=== PATIENT | male | born 1960 | race Caucasian/White ===

== ENCOUNTER → 2020-11-05 15:01 | Outpatient (BNVA) | payer MEDICAID, SELFPAY | PROVIDERS: PCP Student in an Organized Health Care Education/Training Program; Visit Provider Internal Medicine Cardiovascular Disease | DX: Z13.89 Encounter for screening for other disorder (principal) | CPT/HCPCS: 99212 ==

== ENCOUNTER → 2020-11-07 12:44 | Outpatient (REF) | payer MEDICAID, SELFPAY ==
--- NOTE | 2020-11-07 12:48 | CA_ITS ---
Transthoracic Echocardiogram Patient (Last, First, Middle): Andrae Dunbar G Gender: Male Date of : 1960 Age: 60 Procedure Date: 11/07/2020 Procedure Type: Transthoracic Echocardiogram Location: OP Height: 175.26 cm Weight: 73.94 kg BSA: 1.89 m2 Heart Rate: bpm BP: 110 / 70 mmHg Laserist: CHICO Plasencia MD: Bong Arndt MD Program Advisor: Rosendo Sky MD Symptoms: I10 - Essential (primary) hypertension Study Quality: Good ECG Rhythm: Sinus Conclusions: - 1. Normal LV systolic function with grade 1 diastolic dysfunction 2. Normal cardiac valvular Doppler 3. Normal RV systolic pressure 4. No pericardial effusion Findings Left Ventricle Normal left ventricular size, thickness, and systolic function. The visually estimated ejection fraction is between 55-60%. Spectral Doppler is indicative of an impaired relaxation filling pattern. E/E prime ratio is <8, consistent with normal filling pressures. Evidence suggests grade I (mild) diastolic dysfunction. Right Ventricle Normal right ventricular cavity size and systolic function. Atria The left atrium is likely dilated. There is lipomatous hypertrophy of the interatrial septum. There is no evidence of interatrial shunt. The right atrium is normal in size. Aortic Valve There is mild calcification of the aortic valve. There is mild thickening of the aortic valve. There is no aortic valve stenosis. There is no aortic valve regurgitation. Mitral Valve There is mild anterior and moderate posterior mitral leaflet thickening. There is mild mitral annular calcification. There is trace mitral valve regurgitation. There is no mitral valve stenosis. Pulmonic Valve The pulmonic valve was not well visualized. Tricuspid Valve Likely normal tricuspid valve structure and function. There is trace tricuspid valve regurgitation. The right ventricular systolic pressure is normal. The right ventricular systolic pressure is 17 mmHg. Normal right atrial pressure. There is no evidence of pulmonary hypertension. Great Vessels All visible segments of the aorta are normal in size. The pulmonary artery was not well visualized. Venous The inferior vena cava is normal in size and collapses greater than 50% with inspiration. Pericardium/Pleural There is no evidence of pericardial effusion. Prior Study Comparison No significant change compared to prior study dated: 10/18/2019. Measurements 2D Linear Measurements IVSd: 0.98 0.6-0.9/0.6-1.0 cm LVIDd: 4.60 3.9-5.3/4.2-5.9 cm LVIDd Index: 2.43 2.4-3.2/2.2-3.1 cm/m2 LVIDs: 2.63 2.0-3.6 cm LVPWd: 0.93 0.7-1.1 cm Ao Root: 3.50 2.1-3.5 cm LA Diam: 3.40 2.7-3.8/3.0-4.0 cm LAIDs Index: 1.80 1.5-2.3 cm/m2 LV Mass: 185.97 67-162/88-224 g LV Mass Index: 98.39 43-95/49-115 g/m2 LVOT Diam: 2.30 3.0+(-)1.3 cm 2D Systolic Function EF 4C: 55.40 >55% EF 2C: 62.70 >55% EF BiP: 59.10 >55% Mitral Valve MV Pk E: 0.79 MV PK A: 0.67 MV Decel Time: 321.00 E/A: 1.20 E'Lateral: 9.68 E'Medial: 7.40 E/E' Med: 10.70 E/E' Lat: 8.20 PHT: 94.00 MVA PHT: 2.34 Decel [place]: 2.46 Aortic Valve AoV Pk Jose: 1.12 AoV Mn Jose: 0.79 AoV VTI: 0.24 AoV Pk Grad: 5.00 Aov Mn Grad: 3.00 DEB Cont.VTI: 3.88 LVOT LVOT Pk Jose: 1.00 LVOT Mn Jose: 0.67 LVOT VTI: 0.23 LVOT Pk Grad: 4.00 LVOT Mn Grad: 2.00 LVOT Diam: 2.30 LVOT Area: 4.15 Diastolic Function MV Pk E: 0.79 MV Pk A: 0.67 E/A: 1.20 E'Medial: 7.40 E/E' Med: 10.70 E' Laterial: 9.68 E/E' Lat: 8.20 Tricuspid Valve TR Pk Jose: 1.90 TR Pk Grad: 14.00 RA Press: 3.00 RVSP: 17.00 Great Vessels Aorta Ao Root-2D: 3.50 2.0-3.7 cm Ao Asc: 3.10 2.1-3.4 cm Ao Arch: 2.90 Updated in Other Vendor System with Status of Final Rosendo Sky MD electronically signed on 11/08/2020 4:58:53 PM with status of Final
== END ==
LOC: HO.CARD 12:44
PROVIDERS: PCP Student in an Organized Health Care Education/Training Program; Visit Provider Internal Medicine Cardiovascular Disease
DX: I10 Essential (primary) hypertension (principal)
CPT/HCPCS: 93306

== ENCOUNTER → 2020-11-14 11:40 | Outpatient (BNVA) | payer MEDICAID, SELFPAY | PROVIDERS: PCP Student in an Organized Health Care Education/Training Program; Visit Provider Nurse Practitioner Family | DX: R07.89 Other chest pain (principal); I10 Essential (primary) hypertension; E78.5 Hyperlipidemia, unspecified; F17.200 Nicotine dependence, unspecified, uncomplicated; Z71.6 Tobacco abuse counseling; Z79.899 Other long term (current) drug therapy | CPT/HCPCS: 99212 ==

== ENCOUNTER 2020-11-15 08:25 | Outpatient (REF) | payer MEDICAID, SELFPAY ==
--- NOTE | ~2020-11-15 | US_ITS ---
EXAMINATION: US RETROPERITONEAL LIMITED (RENAL ONLY) Ultrasound retroperitoneal renal was dictated with ultrasound renal doppler exam.
--- NOTE | ~2020-11-15 | US_ITS ---
EXAMINATION: ULTRASOUND RENAL DOPPLER. CLINICAL INFORMATION: Essential primary hypertension. COMPARISON: None. TECHNIQUE: Routine grayscale imaging of kidneys with intraperitoneal Doppler done. FINDINGS: Right kidney: The right kidney measures 11.9 x 6.0 x 5.8 cm. There is anechoic cyst lower pole measuring 0.8 x 1.0 x 1 0.8 cm. There is a complex anechoic cyst upper pole with septation measuring 2.7 x 2.0 x 2.1 cm. There is normal cortical thickness. No echogenic stones or hydronephrosis seen. Left kidney: The left kidney measures 11.5 x 5.5 x 5.2 seen. There is a complex cyst with septation in the upper pole measuring 1.1 x 1.1 x 1.0 cm, simple upper pole cyst measuring 1.1 x 1.0 x 1.1 cm and a second complex cyst with septation in the upper pole measuring 1.7 x 1.1 x 1.1 cm. There is normal cortical thickness. No echogenic stones or hydronephrosis seen. On renal Doppler exam: Right kidney: Proximal renal artery velocity measures 118 cm/second, mid segment measures 178 cm/second and the distal segment measures 181 cm/second. Renal aortic ratio measures 1.99. Average resistive index measures 0.73. The renal vein is patent. Left kidney: Proximal left renal artery velocity measures 10 4 cm/second, mid segment measures 2 75 cm/second and distal segment measures 1 38 cm/second. Renal aortic ratio measures 3.07 cm. Average resistive index measures 0.64. The renal vein is patent. US/US renal doppler IMPRESSION: Bilateral complex renal cysts as well as simple renal cyst. No echogenic renal calculi or hydronephrosis seen. On renal Doppler exam, left renal artery stenosis is suspected. Normal renal artery velocities with normal right renal artery values.
== END 2020-11-15 08:26 | disposition home or self-care (01) ==
LOC: HO.US 08:25
PROVIDERS: PCP Student in an Organized Health Care Education/Training Program; Visit Provider Internal Medicine Cardiovascular Disease
DX: I10 Essential (primary) hypertension (principal)
CPT/HCPCS: 76775; 93975

== ENCOUNTER → 2020-11-22 07:34 | Outpatient (REF) | payer MEDICAID, SELFPAY ==
--- NOTE | ~2020-11-22 | NM_ITS ---
Myocardial perfusion study Indication: Chest pain to evaluate for myocardial ischemia Technique: The patient was brought in for a Lexiscan perfusion study on 11/22/2020. Patient performed low-level exercise and was injected 0.4 mg of Lexiscan intravenously. Within a minute of injection, 25 mCi of sestamibi was given intravenously. Images were obtained using the SPECT gamma camera interlaced with the gating device. Images were obtained in supine position. Resting perfusion study was performed on 11/23/2020. Patient was administered 25 mCi of sestamibi intravenously at rest. Images were then obtained in supine position. Images obtained with and without CT attenuation. Total DLP 73 mGy-cm. Images were processed with the software and compared side to side in short axis, horizontal long axis and vertical long axis views. Findings: The stress perfusion study showed non attenuated images show minimal thinning of the inferior wall of the LV myocardium. Remainder of the LV myocardium normally perfused. Attenuation corrected images show mildly reduced uptake in the apex and distal lateral wall of the LV myocardium.. The gated study shows normal LV systolic function with calculated LVEF of 66%. LV cavity is normal size. The gated study shows normal systolic wall thickening and contraction of segments. Resting study shows no clear change in perfusion pattern compared to stress perfusion study. Gating at rest reveals normal systolic wall motion with ejection fraction at 73%. The findings are consistent with no significant area of reversible defect suggestive of ischemia. Most likely normal myocardial perfusion. NM/NM cardiolite stress test Impression: 1. Myocardial perfusion imaging study shows likely normal myocardial perfusion 2. Gated LVEF is 66% 3. Transient ischemic dilatation not present EKG is nondiagnostic for ischemia
--- NOTE | 2020-11-22 08:00 | CA_ITS ---
Acquisition Time: 2020-11-22 08:42:44 Total Exercise Time: 00:06:12 Test Indications: I10 HTN R07.89 CHEST PAIN Medications: Protocol: TOM Max HR: 112 BPM 70% of Pred: 158 BPM Max BP: 162/096 mmHG Max Work Load: 7.3 METS Exercise stress test with exercise 6 min 12 sec of Tom protocol, with moderate shortness of breath and request to stop, no chest discomfort, with PACs at near peak exercise and 2 PVC early in recovery, with normotensive response to exercise, with nondiagnostic EKG due to suboptimal heart rate. Treadmill placed in recovery and slowed to 1 MPH 0% incline for additonal 4.5 min. Testing changed to pharmacological stress test with Lexiscan injection, without anginal symptoms, without arrythmia, with normotensive response, with nondiagnostic EKG for ischemia. In recovery he reported lightheadedness and was treated with Aminophylline 75mg IVP with resolution of symptom. Nuclear images pending. Test reviewed with Dr De Leon. Referred By: Meghan Wellington Overread By: MEGHAN WELLINGTON
[2020-11-22 08:44] LABS: Alanine Aminotransferase 18 U/L (0-40); Albumin Level 4.2 g/dL (3.5-5.0); Alkaline Phosphatase 79 U/L (39-117); Anion Gap 11 (12-20); Aspartate Amino Transferase 16 U/L (5-37); Bilirubin Total 0.5 mg/dL (0.0-1.0); Blood Urea Nitrogen 16 mg/dL (9-16); Calcium 8.8 mg/dL (8.4-10.2); Carbon Dioxide 27 mmol/L (22-29); Chloride 105 mmol/L (96-108); Cholesterol 177 mg/dL; Estimated Glomerular Filt Rate > 60; Glucose Random 88 mg/dL (60-115); HDL Cholesterol 40 mg/dL; LDL Cholesterol Calculated 118 mg/dl; Potassium 3.9 mmol/L (3.3-5.1); Sodium 139 mmol/L (135-145); Total Protein 6.4 g/dL (6.5-8.0); Triglycerides 97 mg/dL
== END ==
LOC: HO.CARD 07:34
PROVIDERS: PCP Student in an Organized Health Care Education/Training Program; Visit Provider Nurse Practitioner Family
DX: R07.89 Other chest pain (principal); I10 Essential (primary) hypertension; E78.5 Hyperlipidemia, unspecified
CPT/HCPCS: 36415; 78452; 80053; 80061; 93016; 93017; 93018; A9500; J0280; J2785

== ENCOUNTER 2020-11-27 09:22 | Outpatient (REF) | payer MEDICAID, SELFPAY ==
--- NOTE | ~2020-11-27 | CT_ITS ---
EXAMINATION: CT ANGIOGRAM ABDOMEN CLINICAL INFORMATION: Essential primary hypertension COMPARISON: Previous renal ultrasound 11/15/2020 TECHNIQUE: Multiple axial images were obtained through the abdomen following the administration of 80 mL Omnipaque 350 intravenous contrast. Images were reviewed on a dedicated 3-D workstation. This CT examination was performed using dose optimization techniques as appropriate, variously including the following: *Automated exposure control *Adjustment of mA and/or kV according to patient size (this includes techniques or standardized protocols for targeted exams where dose is matched to indication/reason for exam; i.e. extremities or head) *Use of iterative reconstruction technique DLP: 233 mGy-cm FINDINGS: There is evidence of atherosclerotic disease with vessel wall calcification. There is mild dilatation of the infrarenal abdominal aorta measuring 2.5 x 2.5 cm. The right common iliac artery and right iliac bifurcation are patent. The left common iliac artery and iliac bifurcation is patent. There are single patent renal arteries. No evidence of renal artery stenosis is seen. There is a normal variant, direct origin of the hepatic artery from the abdominal aorta. The celiac axis, SMA and MARIANO are patent. There is a second area of increased cystic and reticular markings seen in the left lower lobe for example axial image 7 series 8. There is not completely imaged. This is triangular in shape and measures at least 5 3.4 cm in AP and transverse dimension. The lung bases are otherwise clear. The liver, gallbladder, spleen, pancreas and adrenal glands are unremarkable. The kidneys are normal in size. There is an area of renal cortical thinning or scarring in the medial upper pole of the left kidney. There is a 1.7 cm simple cyst in the posterior upper pole of the right kidney. There is a 1 cm cyst in the upper pole of the left kidney. Hounsfield units following contrast measure 28 and this may represent a complex cyst. The other smaller renal cysts seen by ultrasound are not well visualized due to timing of contrast opacification of the kidneys. No renal stone, mass or hydronephrosis is seen. Visualized bowel is unremarkable. No ascites or adenopathy is seen. No hernia. There are mild degenerative changes of the spine. CT/CT angio abdomen IMPRESSION: Atherosclerotic disease. No evidence of renal artery stenosis. Mild dilatation of the infrarenal abdominal aorta measuring maximum 2.5 cm. There is cortical thinning or scarring in the medial upper pole left kidney. Small bilateral renal cysts. Partially visualized mixed cystic and reticular density in the left lower lobe. Follow-up dedicated chest CT scan should be considered.
== END 2020-11-27 09:23 | disposition home or self-care (01) ==
LOC: HO.CT 09:22
PROVIDERS: Visit Provider Nurse Practitioner Family
DX: I10 Essential (primary) hypertension (principal); F17.210 Nicotine dependence, cigarettes, uncomplicated
CPT/HCPCS: 74175; Q9967

== ENCOUNTER → 2020-11-30 11:02 | Outpatient (BNVA) | payer MEDICAID, SELFPAY | PROVIDERS: PCP Student in an Organized Health Care Education/Training Program; Visit Provider Nurse Practitioner Family | DX: R07.89 Other chest pain (principal); I10 Essential (primary) hypertension; E78.5 Hyperlipidemia, unspecified; F17.200 Nicotine dependence, unspecified, uncomplicated; Z71.6 Tobacco abuse counseling; Z79.899 Other long term (current) drug therapy | CPT/HCPCS: 99212 ==

== ENCOUNTER → 2021-01-03 12:50 | Outpatient (BNVA) | payer MEDICAID, SELFPAY | PROVIDERS: PCP Student in an Organized Health Care Education/Training Program; Visit Provider Internal Medicine Cardiovascular Disease | DX: N28.1 Cyst of kidney, acquired (principal); R06.00 Dyspnea, unspecified; I10 Essential (primary) hypertension | CPT/HCPCS: 99212 ==

== ENCOUNTER → 2021-01-28 13:33 | Outpatient (BNVA) | payer MEDICAID, SELFPAY | PROVIDERS: PCP Student in an Organized Health Care Education/Training Program; Visit Provider Internal Medicine | DX: R06.00 Dyspnea, unspecified (principal); Z87.891 Personal history of nicotine dependence | CPT/HCPCS: 99202 ==

== ENCOUNTER 2021-02-14 13:25 | Outpatient (REF) | payer MEDICAID, SELFPAY ==
--- NOTE | 2021-02-14 17:21 | PFT_ITS ---
FLOWS: FEV1 of 102% of predicted at 3.48 L. FVC 105% of predicted at 4.77 L. FEV1 to FVC ratio of 0.73. No bronchodilator response except in small to medium airways. LUNG VOLUMES: Total lung capacity 82% of predicted at 5.58 L. Residual volume 47% of predicted at 1.07 L. Slow vital capacity 99% of predicted at 4.51 L. Expiratory reserve volume 183% of predicted at 2.38 L. Diffusion capacity is moderately decreased. IMPRESSION: No obstructive or restrictive ventilatory defect. No bronchodilator response except in small to medium airways. Decreased diffusion capacity suggests emphysema. MD ELIZA Jamil/MODL / [id number]
== END 2021-02-14 13:26 | disposition home or self-care (01) ==
LOC: HO.RESP 13:25
PROVIDERS: PCP Student in an Organized Health Care Education/Training Program; Visit Provider Internal Medicine
DX: R06.00 Dyspnea, unspecified (principal); Z87.891 Personal history of nicotine dependence
CPT/HCPCS: 94060; 94727; 94729

== ENCOUNTER → 2021-02-20 14:38 | Outpatient (BNVA) | payer MEDICAID, SELFPAY | PROVIDERS: PCP Student in an Organized Health Care Education/Training Program; Visit Provider Internal Medicine | DX: R06.00 Dyspnea, unspecified (principal); Z87.891 Personal history of nicotine dependence; Z79.899 Other long term (current) drug therapy | CPT/HCPCS: 99212 ==

== ENCOUNTER 2021-02-26 10:40 | Outpatient (REF) | payer MEDICAID, SELFPAY ==
--- NOTE | ~2021-02-26 | CT_ITS ---
EXAMINATION: CT CHEST SCREENING CLINICAL INFORMATION: Smoking history. COMPARISON: Previous chest x-ray September 2017. TECHNIQUE: Multidetector volumetric CT imaging of the chest is performed without contrast using low dose technique. Additional 2D coronal and sagittal reformatted images and axial 3D maximum intensity projection (MIP) images are generated on the CT workstation. This CT examination was performed using dose optimization techniques as appropriate, variously including the following: *Automated exposure control. *Adjustment of mA and/or kV according to patient size (this includes techniques or standardized protocols for targeted exams where dose is matched to indication/reason for exam; i.e. extremities or head). *Use of iterative reconstruction technique. DLP: 444 mGy-cm FINDINGS: LUNGS: There is evidence of severe emphysema. There is a 4 mm slightly irregularly-shaped right upper lobe nodule, axial image 152 series 5. There is a 2 mm calcified left upper lobe nodule, axial image 156 series 5. There is a mixed cystic and reticular area in the right upper lobe, axial image 169 series 5. There is a 2 mm peripheral or subpleural calcified left upper lobe nodule, axial image 161 series 5. There is a heterogeneous or semisolid central right upper lobe nodule measuring 4 mm, axial image 188 series 5. There is a heterogeneous or semisolid 3 mm right upper lobe nodule, axial image 203 series 5. There is a 3 mm peripheral or subpleural right upper lobe nodule adjacent to the minor fissure, axial image 271 series 5. There is a 5 mm peripheral or subpleural right lower lobe nodule adjacent to the major fissure, axial image 280 series 5. There is a 3 mm semisolid peripheral lingular nodule, axial image 294 series 5. There is scarring or subsegmental atelectasis at the lung bases. There is question of mild peripheral interstitial lung disease with increased reticulation at the lung bases. MEDIASTINUM: The heart does not appear enlarged. There is coronary artery calcification. There are no enlarged lymph nodes. There is no pericardial effusion. The thoracic aorta is normal in caliber. PLEURA: There is no pleural effusion. No pleural mass or thickening. AXILLA: No lymphadenopathy. UPPER ABDOMEN: Unremarkable. OSSEOUS STRUCTURES: There are degenerative changes of the spine. CT/CT lung screening IMPRESSION: Severe emphysema. Small pulmonary nodules. Coronary artery calcification. ASSESSMENT: Lung-RADS category 2: Benign. RECOMMENDATION: Annual low-dose chest CT follow up recommended.
== END 2021-02-26 10:41 | disposition home or self-care (01) ==
LOC: HO.CT 10:40
PROVIDERS: Visit Provider Physician Assistant Medical
DX: Z87.891 Personal history of nicotine dependence (principal)
CPT/HCPCS: 71271

== ENCOUNTER → 2021-05-14 14:56 | Outpatient (BNVA) | payer MEDICAID, SELFPAY | PROVIDERS: PCP Student in an Organized Health Care Education/Training Program; Visit Provider Urology | DX: N28.1 Cyst of kidney, acquired (principal); N52.9 Male erectile dysfunction, unspecified | CPT/HCPCS: 99202 ==

== ENCOUNTER 2021-07-03 08:07 | Outpatient (REF) | payer MEDICAID, SELFPAY ==
--- NOTE | ~2021-07-03 | XR_ITS ---
EXAMINATION: XR HAND, RIGHT CLINICAL INFORMATION: Right hand pain COMPARISON: None TECHNIQUE: Four views of the right hand. FINDINGS: The fourth finger is in flexed positioning at the PIP joint. On the lateral view, the PIP and DIP joint spaces appear grossly maintained. No acute fractures seen. In the remainder the bones, no acute fractures seen. Slightly flexed positioning of the remainder of the fingers, with the joint spaces relatively maintained. Limited evaluation of the carpal bones secondary to positioning/projection. No acute fractures seen. Ulna negative variance. XR/XR hand RT min 3V IMPRESSION: Fourth finger is in flexed positioning at the PIP joint. No acute fractures seen.
== END 2021-07-03 08:08 | disposition home or self-care (01) ==
LOC: HO.HOSX 08:07
PROVIDERS: Visit Provider Orthopaedic Surgery
DX: Z01.810 Encounter for preprocedural cardiovascular examination (principal); I10 Essential (primary) hypertension; M72.0 Palmar fascial fibromatosis [Dupuytren]; R06.00 Dyspnea, unspecified; Z79.899 Other long term (current) drug therapy; Z87.891 Personal history of nicotine dependence
CPT/HCPCS: 73130; 99202; 99212

== ENCOUNTER 2021-08-01 05:53 | Day surgery (SDC) | payer MEDICAID, SELFPAY ==
[2021-07-26 10:26] VITALS: BMI 22.1
--- NOTE | 2021-07-31 09:58 | HO.ANESPROP2 ---
Documented by User: Ethel Wallis NP 07/31/21 10:05 HPI - Anesthesia Eval Consult details Narrative: 61yo M for Right Hand & Ring Finger Partial Dupuytrens Fasciectomy Cardiac cleared at [facility] Active Problems Active Problems: All Active Problems (Updated 07/26/21 @ 10:37 by Vesta Barnett RN) Chest discomfort (Acute) Erectile dysfunction (Acute) Dupuytren's contracture of right hand (Acute) Essential hypertension (Acute) Preop cardiovascular exam (Acute) Ex-smoker for less than 1 year (Acute) Renal cyst (Acute) Personal history of nicotine dependence (Acute) Dyspnea on exertion (Acute) HLD (hyperlipidemia) (Acute) Resistant hypertension (Acute) Past Medical History Medical History COVID-19 vaccine series completed Dilation of aorta Dyspnea on exertion Ex-smoker for less than 1 year HLD (hyperlipidemia) HTN (hypertension) On beta chuck at home Personal history of nicotine dependence Renal cyst Resistant hypertension Family History Family History Father COPD (chronic obstructive pulmonary disease) Mother Heart disease Thyroid cancer Surgical History Surgical History History of colonoscopy (~2011) History of esophagogastroduodenoscopy (EGD) (~2011) History of vasectomy (~1991) Presence of tooth-root and mandibular implants (~2020) Social History Social History Are you a primary career and transition teacher to a significant other at home: No Alcohol intake: current Alcohol intake frequency: holidays/special occasions only Patient Tobacco Use Status: Former Tobacco user Quit Date: 8 months ago Tobacco use type: Cigarette Cigarette Packs Per Day: 1 Years Smoked: 30 years (onset age 28) Smoked in Last 30 Days: No Use of substances other than those prescribed or required for medical reasons: Yes Substance Use Type Other:: Cannabis - Chewable daily Substance Use Frequency: Daily Have you been hit, kicked, punched, or otherwise hurt by someone within the past year? 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 Current occupational exposures/hazards: No Meds Allergies Allergy/AdvReac Type Severity Reaction Status Date / Time No Known Allergies Allergy Verified 07/25/21 16:21 Home Medications Medication Instructions Recorded Confirmed Last Taken Type amlodipine 10 mg tablet 10 mg PO DAILY 11/05/20 07/25/21 Unknown History atorvastatin 40 mg tablet 40 mg PO DAILY 11/05/20 07/25/21 Unknown History lisinopril 40 mg tablet 40 mg PO DAILY 11/05/20 07/25/21 Unknown History metoprolol tartrate 100 mg tablet 100 mg PO BID 11/05/20 07/25/21 Unknown History clonidine HCl 0.1 mg tablet 0.1 mg PO DAILY tab 11/30/20 07/25/21 Unknown History multivitamin (Daily Multi-Vitamin) 1 tab PO DAILY 01/28/21 07/25/21 Unknown History tamsulosin 0.4 mg capsule 0.4 mg PO DAILY 05/14/21 07/25/21 Unknown History tadalafil 5 mg tablet 5 mg PO DAILY PRN tab 07/03/21 07/25/21 Unknown History Exam Exam Date and Time: July 31, 2021 0958 Height,Weight and Vital Signs: Height 5 ft 9 in Weight 68.039 kg Narrative Narrative: PFT 02/2021 IMPRESSION:? No obstructive or restrictive ventilatory defect.? No bronchodilator response except in small to medium airways.? Decreased diffusion capacity suggests emphysema. EKG 10/25/20: NSR, normal axis, LVH with repolarization changes ECHO 10/2020 Conclusions: -? 1. Normal LV systolic function with grade 1 diastolic ? dysfunction? 2. Normal cardiac valvular Doppler ? 3. Normal RV systolic pressure ? 4. No pericardial effusion ? NM cardiolite stress test 11/2020 Impression: ? 1.? Myocardial perfusion imaging study shows likely normal myocardial perfusion 2.? Gated LVEF is 66% 3. Transient ischemic dilatation not present ? EKG is nondiagnostic for ischemia Assessment and Plan Assessment Anesthesia Assessment: Chart Reviewed Documented by User: Margy Crouch MD 08/01/21 08:39 [facility] Past Medical History Medical History COVID-19 vaccine series completed Dilation of aorta Dyspnea on exertion Ex-smoker for less than 1 year HLD (hyperlipidemia) HTN (hypertension) On beta chuck at home Personal history of nicotine dependence Renal cyst Resistant hypertension Family History Family History Father COPD (chronic obstructive pulmonary disease) Mother Heart disease Thyroid cancer Family history of problems with anesthesia: No Surgical History Surgical History History of colonoscopy (~2011) History of esophagogastroduodenoscopy (EGD) (~2011) History of vasectomy (~1991) Presence of tooth-root and mandibular implants (~2020) History of Problems with Anesthesia: No Social History Social History Are you a primary career and transition teacher to a significant other at home: No Alcohol intake: current Alcohol intake frequency: holidays/special occasions only Patient Tobacco Use Status: Former Tobacco user Quit Date: 8 months ago Tobacco use type: Cigarette Cigarette Packs Per Day: 1 Years Smoked: 30 years (onset age 28) Smoked in Last 30 Days: No Use of substances other than those prescribed or required for medical reasons: Yes Substance Use Type Other:: Cannabis - Chewable daily Substance Use Frequency: Daily Have you been hit, kicked, punched, or otherwise hurt by someone within the past year? 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 Current occupational exposures/hazards: No Meds Allergies Allergy/AdvReac Type Severity Reaction Status Date / Time No Known Allergies Allergy Verified 07/25/21 16:21 Home Medications Medication Instructions Recorded Confirmed Last Taken Type amlodipine 10 mg tablet 10 mg PO DAILY 11/05/20 07/25/21 Unknown History atorvastatin 40 mg tablet 40 mg PO DAILY 11/05/20 07/25/21 Unknown History lisinopril 40 mg tablet 40 mg PO DAILY 11/05/20 07/25/21 Unknown History metoprolol tartrate 100 mg tablet 100 mg PO BID 11/05/20 07/25/21 Unknown History clonidine HCl 0.1 mg tablet 0.1 mg PO DAILY tab 11/30/20 07/25/21 Unknown History multivitamin (Daily Multi-Vitamin) 1 tab PO DAILY 01/28/21 07/25/21 Unknown History tamsulosin 0.4 mg capsule 0.4 mg PO DAILY 05/14/21 07/25/21 Unknown History tadalafil 5 mg tablet 5 mg PO DAILY PRN tab 07/03/21 07/25/21 Unknown History Exam Height,Weight and Vital Signs: Height 5 ft 9 in Weight 68.039 kg Vital Signs Temp Pulse Resp BP Pulse Ox 98.0 F 59 16 137/81 98 08/01/21 06:16 08/01/21 06:16 08/01/21 06:16 08/01/21 06:16 08/01/21 06:16 Airway Mallampati Class: I TM Dist: >3cm Neck ROM: Full Loose/Missing/Broken Teeth: Yes (All teeth extracted. ) Heart: RRR Lungs: CTAB Assessment and Plan Assessment Anesthesia Assessment: Anesthesia Plan Discussed Final Anesthetic Review Family History of Problems with Anesthesia: No History of Problems with Anesthesia: No NPO: Yes ASA Class: II Final Preanesthetic Review: No Changes in Pt Med Stat, Meds/Allgs Chart Reviewed, Consent Obtained/Reviewed and Anes Risks/Benef Reviewed Patient Risk: Low Procedure Risk: Low Assessment/Block/Sedation in SS: Assess/Block/Sedation-SS Anesthetic Plan Anesthetic Plan: GA and Regional Block (Supraclavicular brachial plexus block) Disposition: Standard PACU
[2021-08-01 06:16] VITALS: BP 137/81; PULSE 59; RESP 16; TEMP 36.7; O2SAT 98
[2021-08-01] MEDS: Lactated Ringers 1,000 ML 100 ML IVCONT (06:23)
--- NOTE | 2021-08-01 07:50 | MHC.SHP ---
Pre-Procedural Eval Section A Date of Service: 08/01/21 The patient is an INPATIENT: No Changes since office visit: No Cold of Flu in the past 2 weeks, No New Medical Problems, No Changes in Medication and No Patient answered all questions The History & Physical has been completed within 30 days and I have reviewed it.: Yes Section B Chief Complaint: Palmar Fascial Fibromatosis Allergies: Allergies Allergy/AdvReac Type Severity Reaction Status Date / Time No Known Allergies Allergy Verified 07/25/21 16:21 Plan I have reviewed the history and physical and performed a pertinent physical examination on my patient. No changes have occurred unless specified.
--- NOTE | 2021-08-01 07:50 | W.PM.OPN ---
Operative Note Operative Note Date of Service: 08/01/21 Narrative: Preop diagnosis: 1. Right hand and ring finger Dupuytren's contracture Postop diagnosis: Same Procedure: 1. Right hand and ring finger Partial Dupuytren's fasciectomy 2. Neurolysis of the right ring finger ulnar digital nerve and vessel. Surgeon: Meka Rosales MD Anesthesia: General plus regional block Findings: Fairly large central Dupuytren's cord extending from the mid palm to the proximal phalanx. There was a more complex spiral cord extending distally that attached to the flexor tendon sheath the ulnar-sided skin and other structures with involvement of the ulnar neurovascular bundle crossing over and through the fibrotic tissue. At the end of our procedure both the MCP joint and PIP joint were brought out into full extension. Implants: None Tourniquet time: 90 minutes EBL: 5.0 ml Specimen: Dupuytren's cord from right ring finger Drains: None Complications: None Disposition: Brought to the recovery room in stable condition Plan: Follow-up in 10-14 days for wound check, suture removal and to check pathology OT appt on day of f/u to make a custom night spint and to begin OT OT referral made today. Indications: The patient is a 61 year old man with a right ring finger Dupuytren's contracture MCP 50 degree/PIP 70 degree. The risks and benefits of operative treatment, including but not limited to risk of damage to blood vessels, nerves, tendons, infection, recurrence, persistent pain or numbness, incomplete resolution of preoperative symptoms, or need for further surgery were discussed with the patient and they wished to proceed with surgery. Procedure: Once consent was obtained patient was brought back to the operating suite and placed in the operating table in a supine position. A regional block was performed by the anesthesia team. Perioperative antibiotics and anesthesia was administered by the anesthesia team. A tourniquet was applied to the proximal aspect of the right upper extremity and the limb was prepped and draped in a standard surgical fashion. The limb was elevated exsanguinated with Esmarch bandage and the tourniquet inflated to 250 mm of mercury for a total tourniquet time of 90 minutes. I made a Andrew type incision extending along the Dupuytren's cord from the mid palm to the DIP flexion crease of the right ring finger. The Incision was made with a 15. Blade through the skin the subcutaneous tissues. I then carefully dissected down to the level of the Dupuytren's cord beginning at the proximal aspect of the incision. This was done using tenotomy in iris scissors. Care was taken to protect the nearby neurovascular structures. The Dupuytren's cord was cut at its proximal aspect using tenotomy scissors. It was then grasped with an Allis clamp. TheDupuytren's cord was then carefully dissected free in a proximal to distal direction using tenotomy scissors and again taking care to protect the nearby neurovascular structures. At about the A1 baron area I appreciated that the ulnar neurovascular bundle was deviating from its normal anatomic position centrally over the cord to the midline and then through the Dupuytren's cord. Fibrotic Dupuytren's tissue was dissected away from the radial neurovascular bundle, and the radial neurovascular bundle was noted to stay in its anatomic position radial to the flexor tendon sheath along the entire length of the digit. A neurolysis of the ulnar digital nerve and vessel was performed in a proximal to distal direction following the nerve as we freed it from the fibrotic tissue. The central cord was noted to pass from central to ulnar at the proximal phalanx. It then proceeded as a spiral cord primarily along the ulnar aspect of the proximal phalanx and PIP joint before crossing again to the midline at the distal aspect of the middle phalanx. The ulnar neurovascular bundle after 1st passing superficial to the cord and then to the midline, then passed through the cord and fibrotic tissue as it passed distally and then back to the ulnar side of the flexor tendon sheath. The Spiral cord was attached to multiple parts of the flexor tendon sheath and then also the skin on the ulnar and volar aspect of the finger as it passed over the proximal and middle phalanxes. These cords were carefully dissected free from the ulnar neurovascular bundle as well as from its attachments to the flexor tendon sheath, proximal and middle phalanxes and the skin. It was ultimately dissected free and placed on the back table to be sent for histopathologic review. ? This then allowed me to bring the MCP and PIP joints into full extension.? I was very satisfied with our partial Dupuytren's fasciectomy and our neurolysis of the ulnar digital nerve and corresponding vessel. At this point the tourniquet was deflated and hemostasis obtained with a brief period of local pressure . The wounds were copiously irrigated with normal saline. The skin edges were reapproximated with 5-0 Prolene suture. The wounds were infiltrated with some 0.5% plain Marcaine for postop pain control and a sterile dressing and volar splint holding the small and ring fingers in extension was applied. The patient appears to have tolerated the procedure well and with no complications. All digits were well vascularized conclusion of the case
--- NOTE | 2021-08-01 08:18 | MHC.CM.PN ---
Patient discharged home without services before he could be seen by case management.
[2021-08-01 11:02] VITALS: BP 126/65; PULSE 76; RESP 16; TEMP 36.8; O2SAT 98
[2021-08-01 11:07] VITALS: BP 129/68; PULSE 77; RESP 16; O2SAT 96
[2021-08-01 11:10] VITALS: BP 129/70; PULSE 77; RESP 16; O2SAT 96
[2021-08-01 11:15] VITALS: BP 131/72; PULSE 76; RESP 16; O2SAT 96
[2021-08-01 11:31] VITALS: BP 143/74; PULSE 77; RESP 16; TEMP 36.8; O2SAT 98
== END 2021-08-01 12:25 | disposition home or self-care (01) ==
PROVIDERS: PCP Student in an Organized Health Care Education/Training Program; Visit Provider Orthopaedic Surgery
PROC: (CPT 26123; principal; 2021-08-01 07:30)
DX: M72.0 Palmar fascial fibromatosis [Dupuytren] (principal); I10 Essential (primary) hypertension; Z79.899 Other long term (current) drug therapy; Z87.891 Personal history of nicotine dependence
CPT/HCPCS: 26123; 64702; 88304; J0690; J1100; J2250; J2405; J3010

== ENCOUNTER → 2021-08-06 14:27 | Outpatient (BNVA) | payer MEDICAID, SELFPAY | PROVIDERS: PCP Student in an Organized Health Care Education/Training Program; Visit Provider Urology ==

== ENCOUNTER → 2021-08-13 08:35 | Outpatient (BNVA) | payer MEDICAID, SELFPAY | PROVIDERS: PCP Student in an Organized Health Care Education/Training Program; Visit Provider Orthopaedic Surgery | DX: M72.0 Palmar fascial fibromatosis [Dupuytren] (principal) | CPT/HCPCS: 99212 ==

== ENCOUNTER → 2021-08-20 11:58 | Outpatient (BNVA) | payer MEDICAID, SELFPAY | PROVIDERS: PCP Student in an Organized Health Care Education/Training Program; Visit Provider Orthopaedic Surgery | DX: Z48.02 Encounter for removal of sutures (principal); Z87.39 Personal history of other diseases of the musculoskeletal system and connective tissue | CPT/HCPCS: 99212 ==

== ENCOUNTER 2021-09-09 09:00 | Outpatient (RCR) | payer MEDICAID, SELFPAY ==
--- NOTE | 2021-08-13 11:25 | MHC.OT.OEV ---
[address] [phone] F: [phone] Occupational Therapy Evaluation Diagnosis: Post-op ring finger partial Dupuytren's fasciectomy and neurolysis of the right ring finger ulnar digital nerve and vessel Date of Surgery: 08/01/21 Attending Provider: Dr Rosales Prescribed Treatment: Eval and Treat History of Current Condition: 61 yo male w/ history of right Dupuytren's contracture, presents now s/p partial fasciectomy of right ring finger and neurolysis of digital nerve 08/01/21 w/ Dr Rosales. He was seen post-op for suture removal and removal of post-op splint and dressings, then to OT for custom orthosis and continued post-op management. 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 Enjoys going to [employer], plays [employer] Living Situation, Family and/or Social Support: Lives w/ Current Level of Function and Occupation Self Care, Employment, Leisure: Has been out of work since surgery, difficulty w/ hand writing has been assisting with self care due to post-op splint Sleep: Sleeps well w/ medications Driving: No issues w/ driving Pain Assessment Pain Score: 5 Pain Scale Used: Numeric (0 - 10) Pain Location and Description: 5/10 resting pain, palm to mid phalanx Aggravating Factors: None at the moment - splint has just been removed Alleviating Factors: Pain medications Skin and Soft Tissue Assessment Skin and Soft Tissue: Wound Comments: Stitches present in ring finger, otherwise steri-strips clean and intact over healing palmar incision, no s/s of infection Light bruising over small finger and palm Nerve assessment Comments: Pt reports mild tingling in right ring finger distal phalanx Sensory Assessment Comments: [place] Freya 3.61 throughout, including right D4 distal phalanx Edema Assessment Upper Extremity: Right Impaired Comments: Mild edema right palm, dorsum and digits AROM(PROM) Strength Wrist Comments: WFL Thumb Comments: WFL Digits Comments: Right D4 3cm tip-palm D5 1cm tip-palm Gross Grasp: Comments: NT Patient Education Primary Language: Danish Sr. Social Media & Mobile Manager Required: No Current Knowledge: Understands information with skills for self-management Teaching Method: Demonstration Handouts Verbal Education Needs Identified on Evaluation: ADL's Disease Information Equipment Use Exercise Pain Safety How did patient/family demonstrate learning? Patient demonstrates Patient verbalizes Barriers to Learning: None Readiness for Learning: Accepting Who was educated? Patient Comments: Plan of Care Assessment: 61 yo right hand dominant male presents 12 days post-op right ring finger Dupuytren's release and digital nerve neurolysis. Splint and post-op dressing have been removed and beck sutures removed, steri-strip clean and dry, no s/s of infection. On assessment, he demo's full MP/IP ext and good digital flexion, 3 cm tip-palm in ring finger with some pain with gentle passive stretch. Mild edema present and light bruising in small finger and palm. We have fabricated resting hand orthosis w/ D4-D5 in very slight MP flex, IPs extended and index and long finger free for functional use. He will benefit from cont'd OT to progress range, strength and dexterity w/ continued focus on edema, pain and wound mangement. STG Duration: 1 weeks Short Term Goals: Ind w/ orthosis wear as appropriate (nighttime and between exercise/light activity during day) Pt to maintain full active extension of ring finger Pt to demo full tip-palm flex on ring and small fingers Ind w/ simple wound care techniques LTG Duration: 4 weeks Rug Designer Goals: Ind w/ scar management techniques Full composite and hook flexion Right gross grasp >40lb Pt to report good use of right hand w/ moderate daily activities Frequency and Duration: The patient will be seen 2x/wk for 4 weeks Treatment Plan: Therapeutic Exercise Therapeutic Activity Home Exercise Program Splinting Neuro Re-ed Patient Education Desensitization/Sensory Re-ed Edema Control ADL Training Paraffin Fluidotherapy MHP Cold Packs Joint Mobilization Soft Tissue Mobilization Kinesiotaping Electronically Signed By: Irene Hartmann OTR/L Please sign and return to therapist, Thank you for your referral.
--- NOTE | 2021-09-09 09:28 | MHC.OT.DC ---
[address] [phone] F: [phone] Occupational Therapy Discharge Note Provider: Dr Rosales Diagnosis: Post-op ring finger partial Dupuytren's fasciectomy and neurolysis of the right ring finger ulnar digital nerve and vessel Date of Surgery: 08/01/21 Date of Evaluation: 08/13/21 Date of Discharge: 09/10/21 Treatments to Date: 8 Discharge Status: Achieved Goals Improved Function Independent with HEP Discharge Summary: 6 weeks post-op and doing very well, good ROM, pain free at most times, good follow through w/ HEP. Pt continues to wear nighttime D4 ext orthosis. All goals met and he is Ind w/ self management and HEP. Electronically Signed By: CHICA Barrientos/Leo LLANEST Reviewed/agree with student documentation: N/A Therapist: Please Sign and return to therapist, thank you for your referral.
== END 2021-09-09 09:29 | disposition home or self-care (01) ==
LOC: HO.OT 09:00
PROVIDERS: PCP Student in an Organized Health Care Education/Training Program; Visit Provider Orthopaedic Surgery
DX: M72.0 Palmar fascial fibromatosis [Dupuytren] (principal)
CPT/HCPCS: 29130; 97035; 97110; 97140; 97165; 97760

== ENCOUNTER → 2021-10-01 09:02 | Outpatient (BNVA) | payer MEDICAID, SELFPAY | PROVIDERS: PCP Student in an Organized Health Care Education/Training Program; Visit Provider Orthopaedic Surgery | DX: Z09 Encounter for follow-up examination after completed treatment for conditions other than malignant neoplasm (principal); Z87.39 Personal history of other diseases of the musculoskeletal system and connective tissue | CPT/HCPCS: 99212 ==

== ENCOUNTER → 2022-01-09 12:58 | Outpatient (BNVA) | payer MEDICAID, SELFPAY | PROVIDERS: PCP Student in an Organized Health Care Education/Training Program; Visit Provider Internal Medicine Cardiovascular Disease | DX: I10 Essential (primary) hypertension (principal) | CPT/HCPCS: 93005; 99212 ==

== ENCOUNTER → 2022-01-29 14:50 | Outpatient (BNVA) | payer MEDICAID, SELFPAY | PROVIDERS: PCP Student in an Organized Health Care Education/Training Program; Visit Provider Urology | DX: N52.9 Male erectile dysfunction, unspecified (principal) ==

== ENCOUNTER → 2022-08-06 08:52 | Outpatient (BNVA) | payer MEDICAID, SELFPAY | PROVIDERS: PCP Student in an Organized Health Care Education/Training Program; Visit Provider Urology | DX: N40.1 Benign prostatic hyperplasia with lower urinary tract symptoms (principal); R35.1 Nocturia; N52.9 Male erectile dysfunction, unspecified; Z79.899 Other long term (current) drug therapy | CPT/HCPCS: 51798; 99212 ==

== ENCOUNTER → 2022-10-20 10:57 | Outpatient (BNVA) | payer MEDICAID, SELFPAY | PROVIDERS: PCP Student in an Organized Health Care Education/Training Program; Referring Provider Student in an Organized Health Care Education/Training Program; Visit Provider Internal Medicine Cardiovascular Disease | DX: I10 Essential (primary) hypertension (principal); Z87.891 Personal history of nicotine dependence | CPT/HCPCS: 93005; 99212 ==

== ENCOUNTER → 2023-02-04 10:16 | Outpatient (BNVA) | payer MEDICAID, SELFPAY | PROVIDERS: PCP Student in an Organized Health Care Education/Training Program; Visit Provider Urology | DX: R97.20 Elevated prostate specific antigen [PSA] (principal) | CPT/HCPCS: 99212 ==

== ENCOUNTER 2023-04-08 12:36 | Outpatient (AMB) | payer MEDICARE, SELFPAY ==
[2023-04-08 12:41] VITALS: BP 102/62; PULSE 64; BMI 23.6
--- NOTE | 2023-04-08 12:41 | A.OFFVIS_ITS ---
Intake Vital Signs 04/08/23 12:41 Height 5 ft 9 in Weight 159 lb 9.835 oz BMI 23.6 BP 102/62 Blood Pressure Location Lt brachial Position Sitting Pulse 64 Pulse Source Pulse Oximeter Intake Visit Reasons: 5 mth fu Intake Note: 5 month follow up. Shift Nurse Manager Required: No Accompanied by: Self / Same As Patient Allergies No Known Allergies Allergy (Verified 04/08/23 12:43) Medication List - Last Reconciled 04/08/23 by Bong Arndt MD amlodipine 10 mg PO DAILY atorvastatin 40 mg PO DAILY celecoxib 100 mg PO BID clonidine HCl 0.1 mg PO BID finasteride 5 mg PO DAILY 90 days hydrochlorothiazide 25 mg PO DAILY lisinopril 40 mg PO DAILY metoprolol tartrate 50 mg PO BID 90 days multivitamin (Daily Multi-Vitamin tablet) 1 tab PO DAILY tadalafil 5 mg PO Q OTHER DAY tamsulosin 0.4 mg PO DAILY HPI HPI Comments History of Present Illness Details 63-year-old gentleman here for follow-up. Blood pressure is well controlled. He has no chest discomfort. He has dyspnea on exertion and was a former smoker and his PFTs as shown emphysema. Overall he is clinically stable and is denying any new symptoms. Blood pressure control is good. He is smoking half pack per day. He has used Wellbutrin in the past with some success and will be using it. 04/08/23: He is here for follow-up. He has been doing well. He is taking amlodipine 10 mg daily, clonidine 0.1 mg twice a day, hydrochlorothiazide 25 mg daily, lisinopril 40 mg daily, and metoprolol 50 mg twice a day. Blood pressure control is good. No dizziness or lightheadedness. He continues to smoke and we had a detailed discussion again about smoking cessation. [facility] Medical History COVID-19 vaccine series completed Dilation of aorta Dyspnea on exertion Ex-smoker for less than 1 year HLD (hyperlipidemia) HTN (hypertension) On beta chuck at home Personal history of nicotine dependence Renal cyst Resistant hypertension Surgical History History of colonoscopy (~2011) History of esophagogastroduodenoscopy (EGD) (~2011) History of hand surgery History of vasectomy (~1991) Presence of tooth-root and mandibular implants (~2020) Family History Father COPD (chronic obstructive pulmonary disease) Mother Heart disease Thyroid cancer Social History Are you a primary rn long term care to a significant other at home: No Alcohol intake: current Alcohol intake frequency: holidays/special occasions only Patient Tobacco Use Status: Current someday Tobacco user Tobacco use type: Cigarette Years Smoked: 25 +/- Substance Use Type: Marijuana Current occupational status: employed 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 Current occupational exposures/hazards: No Review of Systems Const Denies weakness ENT Denies dizziness Card Denies chest pain, Denies chest pain with activity, Denies syncope, Denies rapid heart rate, Denies pedal edema, Denies edema, Denies leg edema, Denies lightheadedness, Denies palpitations, Denies dyspnea, Denies dyspnea on exertion and Denies orthopnea Resp Denies cough, Denies dyspnea and Denies dyspnea on exertion GI Denies hematochezia and Denies change in stool character Musc Denies abnormal gait, Denies muscle cramps, Denies muscle weakness, Denies numbness, Denies radiating pain into limb and Denies tingling Neuro Denies abnormal gait, Denies dizziness, Denies syncope, Denies numbness, Denies tingling and Denies weakness Endo Denies palpitations Physical Exam Vital Signs: Last Vital Signs Pulse 64 04/08/23 12:41 BP 102/62 04/08/23 12:41 BMI result Body Mass Index 23.6 GENERAL APPEARANCE: in no acute distress. NECK/THYROID: no carotid bruit, no jugular venous distention. SKIN: no suspicious lesions, warm and dry. HEART: no murmurs, regular rate and rhythm, S1, S2 normal. LUNGS: clear to auscultation bilaterally. Diminished breath sounds bilaterally. ABDOMEN: normal, bowel sounds present, soft, nontender, nondistended. EXTREMITIES: no edema. PERIPHERAL PULSES: equal. NEUROLOGIC: nonfocal, alert and oriented. PSYCH: mood/affect full range. Assessment & Plan Assessment & Plan (1) Essential hypertension: Code(s): I10 - Essential (primary) hypertension Plan Pleasant 63 gentleman here for follow-up. He has hypertension and is on multiple medication. Blood pressure control is good. No chest discomfort shortness of breath. Continue same medications for now. We discussed about smoking cessation and he plans to start Wellbutrin. Follow-up with us in 1 year. I have explained to him that if he gets any new symptoms then he should reach out to us and we will see him earlier. Thank you for allowing me to participate in the care of your patient. Please feel free to contact me if you have any questions. Medications: Changed From tadalafil 5 mg PO DAILY 90 tabs 1RF sexual activity 90 days N52.01 - Erectile dysfunction due to arterial insufficiency To tadalafil 5 mg PO Q OTHER DAY N52.01 - Erectile dysfunction due to arterial insufficiency Coding Level of Care Code Est Pt Level 3 (02722) Diagnoses Essential hypertension I10
== END 2023-04-08 12:55 | disposition home or self-care (01) ==
PROVIDERS: PCP Student in an Organized Health Care Education/Training Program; Visit Provider Internal Medicine Cardiovascular Disease
DX: I10 Essential (primary) hypertension (principal)
CPT/HCPCS: 99213

== ENCOUNTER → 2023-04-08 12:36 | Outpatient (BNVA) | payer MEDICARE, SELFPAY | PROVIDERS: PCP Student in an Organized Health Care Education/Training Program; Visit Provider Internal Medicine Cardiovascular Disease | DX: I10 Essential (primary) hypertension (principal) | CPT/HCPCS: 99212 ==

== ENCOUNTER 2023-05-21 08:49 | Outpatient (REF) | payer MEDICARE, SELFPAY ==
[2023-05-21 15:11] LABS: Prostate Specific Antigen 3.19 ng/mL (<0.05-4.0)
== END 2023-05-21 08:50 | disposition home or self-care (01) ==
LOC: HO.CHCLDS 08:49
PROVIDERS: Visit Provider Urology
DX: Z12.5 Encounter for screening for malignant neoplasm of prostate (principal); R97.20 Elevated prostate specific antigen [PSA]; N52.9 Male erectile dysfunction, unspecified
CPT/HCPCS: 36415; 84153

== ENCOUNTER 2023-05-25 10:19 | Outpatient (REF) | payer MEDICARE, SELFPAY ==
[2023-05-25 15:07] LABS: Alanine Aminotransferase 16 U/L (0-40); Albumin Level 4.4 g/dL (3.5-5.0); Alkaline Phosphatase 79 U/L (39-117); Anion Gap 11 (12-20); Aspartate Amino Transferase 19 U/L (5-37); Bilirubin Direct 0.2 mg/dL (0.0-0.5); Bilirubin Total 0.6 mg/dL (0.0-1.0); Blood Urea Nitrogen 16 mg/dL (9-16); Calcium 9.8 mg/dL (8.4-10.2); Carbon Dioxide 27 mmol/L (22-29); Chloride 105 mmol/L (96-108); Cholesterol 236 mg/dL (<200); Estimated Glomerular Filt Rate > 60; Glucose Fasting 89 mg/dL (60-99); HDL Cholesterol 46 mg/dL (>40); LDL Cholesterol Calculated 167 mg/dL (<100); Potassium 3.6 mmol/L (3.3-5.1); Sodium 139 mmol/L (135-145); Total Protein 7.2 g/dL (6.5-8.0); Triglycerides 117 mg/dL (<150)
[2023-05-25 15:08] LABS: Vitamin D 25-OH Total 31.7 ng/mL (>30)
== END 2023-05-25 10:20 | disposition home or self-care (01) ==
LOC: HO.CHCLDS 10:19
PROVIDERS: Visit Provider Student in an Organized Health Care Education/Training Program
DX: E55.9 Vitamin D deficiency, unspecified (principal); I10 Essential (primary) hypertension; E78.00 Pure hypercholesterolemia, unspecified
CPT/HCPCS: 36415; 80048; 80061; 80076; 82306

== ENCOUNTER 2023-05-29 10:00 | Outpatient (AMB) | payer OTHER, SELFPAY ==
--- NOTE | 2023-05-29 10:01 | MHC.OFFVIS ---
Intake Intake Visit Reasons: 4M PSA(set) Intake Note: Patient is present for follow up PSA Urology Medications: Tadalafil, Tamsulosin, finasteride Blood Thinner: None Ice Seller Required: No Allergies No Known Allergies Allergy (Verified 05/29/23 10:01) Medication List - Last Reconciled 05/29/23 by Miah Martínez MD amlodipine 10 mg PO DAILY atorvastatin 40 mg PO DAILY celecoxib 100 mg PO BID clonidine HCl 0.1 mg PO BID finasteride 5 mg PO DAILY 90 days hydrochlorothiazide 25 mg PO DAILY lisinopril 40 mg PO DAILY metoprolol tartrate 50 mg PO BID 90 days multivitamin (Daily Multi-Vitamin tablet) 1 tab PO DAILY tadalafil 5 mg PO Q OTHER DAY tamsulosin 0.4 mg PO DAILY HPI HPI Comments History of Present Illness Details Andrae is a pleasant male. He is a patient of Dr. Cardona. He is seen for the following urologic issues. 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 - so this will be a good test 6 month follow-up MANJIT 2+ prostate soft Erectile dysfunction Progressive Able to obtain but cannot maintain erection Prior trial of on demand medications no longer effective Comorbidities hypertension and dyslipidemia Hypertensive medications include metoprolol Good response to daily tadalafil Lower urinary tract symptoms Initial presentation with nocturia x2, weakness of stream On tamsulosin every other day PSA 02/03 6.1, 06/06 3.2 PFSH Medical History COVID-19 vaccine series completed Dilation of aorta Dyspnea on exertion Ex-smoker for less than 1 year HLD (hyperlipidemia) HTN (hypertension) On beta chuck at home Personal history of nicotine dependence Renal cyst Resistant hypertension Surgical History History of colonoscopy (~2011) History of esophagogastroduodenoscopy (EGD) (~2011) History of hand surgery History of vasectomy (~1991) Presence of tooth-root and mandibular implants (~2020) Family History Father COPD (chronic obstructive pulmonary disease) Mother Heart disease Thyroid cancer Social History Are you a primary childcare center administrator to a significant other at home: No Alcohol intake: current Alcohol intake frequency: holidays/special occasions only Patient Tobacco Use Status: Current someday Tobacco user Tobacco use type: Cigarette Years Smoked: 25 +/- Substance Use Type: Marijuana Current occupational status: employed 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 Current occupational exposures/hazards: No Review of Systems Const All systems reviewed & are unremarkable except as noted in HPI and below Reports no additional complaints Resp Reports no additional complaints GI Reports no additional complaints Reports as per HPI Musc Reports no additional complaints Physical Exam Telemedicine evaluation Appropriate responses Regular breathing rate and rhythm HEENT Head: Yes normal to inspection Ears: hearing grossly normal bilaterally Eyes General: appearance normal, both eyes and all related structures Neck Neck: Yes normal visual inspection Chest Chest palpation & inspection: normal inspection of the chest Resp Effort & Inspection: normal respiratory effort and able to speak in complete sentences Assessment & Plan Assessment & Plan (1) Elevated PSA: Code(s): R97.20 - Elevated prostate specific antigen [PSA] (2) Nocturia associated with benign prostatic hyperplasia: Code(s): N40.1 - Benign prostatic hyperplasia with lower urinary tract symptoms; R35.1 - Nocturia Plan Six month follow-up PSA Orders: Orders PSA,Total (Free>4and<10) 6 Months R97.20 - Elevated prostate specific antigen [PSA] Medications: Refilled finasteride 5 mg PO DAILY 90 tabs 1RF 90 days N13.8 - Other obstructive and reflux uropathy, N40.1 - Benign prostatic hyperplasia with lower urinary tract symptoms, R33.9 - Retention of urine, unspecified, R97.20 - Elevated prostate specific antigen [PSA] Patient Instructions: Imaging studies, laboratory and physical exam results were discussed and reviewed in detail. No major barriers to patient understanding were identified. An opportunity to ask questions regarding the treatment plan was provided. All questions were answered. The patient expressed understanding and agreement with the above treatment plan. The patient is aware they should contact our office by phone for worsening of their current condition or the appearance of new urologic symptoms. Compliance is encouraged with any medications and followup testing that is ordered. It is a privilege to participate in the urologic care of your patient. If you have any questions or concerns regarding treatment for the above conditions, or other urologic issues, please do not hesitate to contact me. The office telephone contact is [phone]. This note is constructed using voice recognition software. While every effort has been made to ensure accuracy kiln packer errors may have been included. Yours sincerely, Dr Miah Martínez MD, [facility] - Urology Providers of Expert, Compassionate Care for the Genitourinary System Telehealth Telehealth Location of provider rendering services: practice address Location of patient: address on file Patient Identification confirmed using: Name, : Yes Telehealth method: video Patient verbally consented to treatment: Yes Patient verbally consented to billing insurance company: Yes Patient informed of any privacy concerns related to visit: Yes Coding Level of Care Code Tele Est Pt Level 3 (25292) Diagnoses Elevated PSA R97.20 Nocturia associated with benign prostatic hyperplasia N40.1; R35.1
== END 2023-05-29 10:39 | disposition home or self-care (01) ==
LOC: HO.HUSH 10:00
PROVIDERS: PCP Student in an Organized Health Care Education/Training Program; Visit Provider Urology
DX: R97.20 Elevated prostate specific antigen [PSA] (principal); N40.1 Benign prostatic hyperplasia with lower urinary tract symptoms; R35.1 Nocturia
CPT/HCPCS: 99213

== ENCOUNTER → 2023-05-29 10:00 | Outpatient (BNVA) | payer OTHER, SELFPAY | PROVIDERS: PCP Student in an Organized Health Care Education/Training Program; Visit Provider Urology ==

== ENCOUNTER 2023-07-03 08:17 | Outpatient (AMB) | payer OTHER, SELFPAY ==
[2023-07-03 08:24] VITALS: BP 120/74; PULSE 66; TEMP 36.6; O2SAT 98; BMI 23.5
--- NOTE | 2023-07-03 08:24 | AM.OFFWIN_ITS ---
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 Intake Note: pt is here for c/o left elbow swelling, some pain Patient Tobacco Use Status: Current someday Tobacco user Allergies No Known Allergies Allergy (Verified 07/03/23 09:02) Medication List - Last Reconciled 07/03/23 by Zev Del Rosario MD amlodipine 10 mg PO DAILY atorvastatin 40 mg PO DAILY celecoxib 100 mg PO BID clonidine HCl 0.1 mg PO BID finasteride 5 mg PO DAILY 90 days hydrochlorothiazide 25 mg PO DAILY lisinopril 40 mg PO DAILY metoprolol tartrate 50 mg PO BID 90 days multivitamin (Daily Multi-Vitamin tablet) 1 tab PO DAILY tadalafil 5 mg PO Q OTHER DAY tamsulosin 0.4 mg PO DAILY Do you need a note to return to daycare/school/sports/work: Yes HPI 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 Patient has a swelling behind his left elbow for the past 4 weeks. He saw his primary care provider who said it would resolve on its own. Feels that it has not resolved completely and would like it examined. Does not recall any fall or injury prior to the onset of symptoms. No history of tick bite. [facility] Medical History COVID-19 vaccine series completed Dilation of aorta Dyspnea on exertion Ex-smoker for less than 1 year HLD (hyperlipidemia) HTN (hypertension) On beta chuck at home Personal history of nicotine dependence Renal cyst Resistant hypertension Surgical History History of colonoscopy (~2011) History of esophagogastroduodenoscopy (EGD) (~2011) History of hand surgery History of vasectomy (~1991) Presence of tooth-root and mandibular implants (~2020) Family History Father COPD (chronic obstructive pulmonary disease) Mother Heart disease Thyroid cancer Social History Are you a primary child care provider to a significant other at home: No Alcohol intake: current Alcohol intake frequency: holidays/special occasions only Patient Tobacco Use Status: Current someday Tobacco user Tobacco use type: Cigarette Years Smoked: 25 +/- Substance Use Type: Marijuana Current occupational status: employed 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 No tenderness. Full range of motion, including flexion, extension, pronation, supination at the elbow joint. Assessment & Plan Assessment & Plan (1) Olecranon bursitis, left elbow: Code(s): M70.22 - Olecranon bursitis, left elbow Plan: Reassurance. Symptoms should subside spontaneously. Lab work ordered to rule out Lyme disease. Will call with results of the test. Orders: Orders Lyme IgG/IgM w/reflex to WB Today M25.429 - Effusion, unspecified elbow Erythrocyte Sedimentation Rate Today M25.429 - Effusion, unspecified elbow Coding Level of Care Code New Pt Level 3 (27722) Diagnoses Olecranon bursitis, left elbow M70.22
== END 2023-07-03 09:05 | disposition home or self-care (01) ==
PROVIDERS: PCP Student in an Organized Health Care Education/Training Program; Visit Provider Internal Medicine
DX: M70.22 Olecranon bursitis, left elbow (principal)
CPT/HCPCS: 99203

== ENCOUNTER 2023-07-03 09:02 | Outpatient (REF) | payer OTHER, SELFPAY ==
[2023-07-03 13:04] LABS: Erythrocyte Sedimentation Rate 4 MM/HR (0-15)
== END 2023-07-03 09:03 | disposition home or self-care (01) ==
LOC: HO.HMGCLDS 09:02
PROVIDERS: PCP Student in an Organized Health Care Education/Training Program; Visit Provider Internal Medicine
DX: M25.429 Effusion, unspecified elbow (principal)
CPT/HCPCS: 36415; 85652; 86617; 86618

== ENCOUNTER 2023-07-04 07:11 | Outpatient (REF) | payer OTHER, SELFPAY ==
[2023-07-04 08:41] LABS: PSA,Total (Free>4and<10) 2.82 ng/mL (0.00-4.00)
[2023-07-06 18:24] LABS: Lyme Abs Screen <0.90 index
== END 2023-07-04 07:12 | disposition home or self-care (01) ==
LOC: HO.LAB 07:11
PROVIDERS: Urology; PCP Student in an Organized Health Care Education/Training Program; Visit Provider Internal Medicine
DX: R97.20 Elevated prostate specific antigen [PSA] (principal); M25.429 Effusion, unspecified elbow; Z12.5 Encounter for screening for malignant neoplasm of prostate
CPT/HCPCS: 36415; 84153; 86617; 86618

== ENCOUNTER 2023-10-13 09:00 | Outpatient (REF) | payer OTHER, SELFPAY ==
[2023-10-13 15:55] LABS: Alanine Aminotransferase 26 U/L (0-40); Albumin Level 4.3 g/dL (3.5-5.0); Alkaline Phosphatase 79 U/L (39-117); Anion Gap 14 (12-20); Aspartate Amino Transferase 26 U/L (5-37); Bilirubin Direct 0.1 mg/dL (0.0-0.5); Bilirubin Total 0.3 mg/dL (0.0-1.0); Blood Urea Nitrogen 14 mg/dL (9-16); Calcium 9.6 mg/dL (8.4-10.2); Carbon Dioxide 25 mmol/L (22-29); Chloride 105 mmol/L (96-108); Cholesterol 266 mg/dL (<200); Estimated Glomerular Filt Rate > 60; Glucose Random 63 mg/dL (60-115); HDL Cholesterol 62 mg/dL (>40); LDL Cholesterol Calculated 178 mg/dL (<100); Potassium 4.1 mmol/L (3.3-5.1); Sodium 140 mmol/L (135-145); Total Protein 7.5 g/dL (6.5-8.0); Triglycerides 134 mg/dL (<150)
== END 2023-10-13 09:01 | disposition home or self-care (01) ==
LOC: HO.CHCLDS 09:00
PROVIDERS: Visit Provider Student in an Organized Health Care Education/Training Program
DX: I10 Essential (primary) hypertension (principal)
CPT/HCPCS: 36415; 80048; 80061; 80076

== ENCOUNTER 2023-10-19 13:46 | Outpatient (AMB) | payer OTHER, SELFPAY ==
[2023-10-19 15:01] VITALS: BP 140/60; PULSE 69; BMI 22.9
--- NOTE | 2023-10-19 15:01 | MHC.OFFVIS ---
Intake Vital Signs 10/19/23 15:01 Height 5 ft 9 in Weight 154 lb 12.232 oz BMI 22.9 BP 140/60 H Blood Pressure Location Lt brachial Position Sitting Pulse 69 Intake Visit Reasons: follow up about recent Emergency Room visit Intake Note: pt its here for an [facility] F/up pt states that he its fine. Press Washer Required: No Accompanied by: Self / Same As Patient Allergies No Known Allergies Allergy (Verified 07/03/23 09:02) Medication List - Last Reconciled 10/19/23 by Bong Arndt MD amlodipine 10 mg PO DAILY atorvastatin 40 mg PO DAILY celecoxib 100 mg PO BID clonidine HCl 0.1 mg PO BID finasteride 5 mg PO DAILY 90 days hydrochlorothiazide 25 mg PO DAILY lisinopril 40 mg PO DAILY metoprolol tartrate 50 mg PO BID multivitamin (Daily Multi-Vitamin tablet) 1 tab PO DAILY tadalafil 5 mg PO Q OTHER DAY tamsulosin 0.4 mg PO DAILY ubidecarenone-omega 3-vit E 25-150-200 mg-mg-unit (Co E-11-Kqxyejl E-Fish Oil) 1 cap PO DAILY HPI HPI Comments History of Present Illness Details 63-year-old gentleman here for follow-up. Blood pressure is well controlled. He has no chest discomfort. He has dyspnea on exertion and was a former smoker and his PFTs as shown emphysema. Overall he is clinically stable and is denying any new symptoms. Blood pressure control is good. He is smoking half pack per day. He has used Wellbutrin in the past with some success and will be using it. 04/08/23: He is here for follow-up. He has been doing well. He is taking amlodipine 10 mg daily, clonidine 0.1 mg twice a day, hydrochlorothiazide 25 mg daily, lisinopril 40 mg daily, and metoprolol 50 mg twice a day. Blood pressure control is good. No dizziness or lightheadedness. He continues to smoke and we had a detailed discussion again about smoking cessation. 10/19/2023: He returns for follow-up. End of August he went to [facility] Emergency Department because he started feeling dizzy and said that he almost passed out. He felt that he was going to black out and it was not a vertigo like feeling. He said he checked his blood pressure at home before the EMS arrived and his blood pressure was 180/110. He said he has been taking his medications regularly in particular he has not missed clonidine. He said he went to the ER and after waiting for several hours he decided to leave from the emergency department. He said since then he has been fine over the last month and did not have any further symptoms. He said he has checked his blood pressure at home it has been running anywhere from 140s to high 150s. In the office currently his blood pressure manually is 150/90. He is saying that he has been taking medications regularly. [facility] Medical History COVID-19 vaccine series completed Dilation of aorta Dyspnea on exertion Ex-smoker for less than 1 year HLD (hyperlipidemia) HTN (hypertension) On beta chuck at home Personal history of nicotine dependence Renal cyst Resistant hypertension Surgical History History of hand surgery Presence of tooth-root and mandibular implants (~2020) History of esophagogastroduodenoscopy (EGD) (~2011) History of colonoscopy (~2011) History of vasectomy (~1991) Family History Father COPD (chronic obstructive pulmonary disease) Mother Heart disease Thyroid cancer Social History Are you a primary career portals teacher to a significant other at home: No Alcohol intake: current Alcohol intake frequency: holidays/special occasions only Patient Tobacco Use Status: Current someday Tobacco user Tobacco use type: Cigarette Years Smoked: 25 +/- Substance Use Type: Marijuana Current occupational status: employed 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 NECK/THYROID: Right carotid bruit, no jugular venous distention. SKIN: no suspicious lesions, warm and dry. HEART: no murmurs, regular rate and rhythm, S1, S2 normal. LUNGS: clear to auscultation bilaterally. Diminished breath sounds bilaterally. ABDOMEN: normal, bowel sounds present, soft, nontender, nondistended. EXTREMITIES: no edema. PERIPHERAL PULSES: equal. NEUROLOGIC: nonfocal, alert and oriented. PSYCH: mood/affect full range. Office Procedures EKG Details: Sinus rhythm 69 beats per minute, normal axis, nonspecific T-wave changes, QTC 470 milliseconds. [id number], Complete Assessment & Plan Assessment & Plan (1) Resistant hypertension: Code(s): I10 - Essential (primary) hypertension (2) HLD (hyperlipidemia): Code(s): E78.5 - Hyperlipidemia, unspecified (3) Dizziness: Code(s): R42 - Dizziness and giddiness (4) Carotid bruit: Code(s): R09.89 - Other specified symptoms and signs involving the circulatory and respiratory systems Plan Pleasant 63 gentleman is here for follow-up. He had fairly stable blood pressure readings but now is presenting with elevated blood pressure. He said he had an event where he was dizzy and his blood pressure was quite high. It is possible that the dizziness was due to elevated blood pressure but it does not explain the feeling that he is going to pass out. In any case it is hard to test him for this right now because the event happened more than 1 month ago and since then he has been stable also. Is denying any chest discomfort shortness of breath. He has a right carotid bruit and I will arrange a carotid ultrasound to assess this. I have discussed with him that he needs to stop smoking. I am starting him on baby aspirin 81 mg daily. Will double the lisinopril to 40 mg twice a day. He will check his blood pressure and report to us. We will see him back in a month. Thank you for allowing me to participate in the care of your patient. Please feel free to contact me if you have any questions. Orders: Orders US carotid duplex BI Today R09.89 - Other specified symptoms and signs involving the circulatory and respiratory systems Medications: New aspirin (Adult Aspirin Regimen) 81 mg PO DAILY 1 tab 0RF R09.89 - Other specified symptoms and signs involving the circulatory and respiratory systems Changed From lisinopril 40 mg PO DAILY R09.89 - Other specified symptoms and signs involving the circulatory and respiratory systems To lisinopril 40 mg PO BID 100 tabs 3RF R09.89 - Other specified symptoms and signs involving the circulatory and respiratory systems Coding Level of Care Code Est Pt Level 4 (24120) Diagnoses Resistant hypertension I10 HLD (hyperlipidemia) E78.5 Dizziness R42 Carotid bruit R09.89 CPT Codes EKG - CPT: 46911-[id number], Complete ([id number])
== END 2023-10-19 15:33 | disposition home or self-care (01) ==
PROVIDERS: PCP Student in an Organized Health Care Education/Training Program; Visit Provider Internal Medicine Cardiovascular Disease
DX: I10 Essential (primary) hypertension (principal); E78.5 Hyperlipidemia, unspecified; R42 Dizziness and giddiness; R09.89 Other specified symptoms and signs involving the circulatory and respiratory systems
CPT/HCPCS: 93010; 99214

== ENCOUNTER → 2023-10-19 13:46 | Outpatient (BNVA) | payer OTHER, SELFPAY | PROVIDERS: PCP Student in an Organized Health Care Education/Training Program; Visit Provider Internal Medicine Cardiovascular Disease | DX: I10 Essential (primary) hypertension (principal); E78.5 Hyperlipidemia, unspecified; R42 Dizziness and giddiness; R09.89 Other specified symptoms and signs involving the circulatory and respiratory systems; Z79.899 Other long term (current) drug therapy | CPT/HCPCS: 93005; 99212 ==

== ENCOUNTER 2023-11-10 09:54 | Outpatient (REF) | payer MEDICARE, SELFPAY ==
--- NOTE | ~2023-11-10 | US_ITS ---
EXAMINATION: US EXTRACRANIAL CAROTID DUPLEX, BILATERAL CLINICAL INFORMATION: Carotid bruit COMPARISON: None available. TECHNIQUE: Real-time ultrasound and Doppler techniques (integrating B-mode 2-D vascular images, Doppler spectral analysis and color-flow Doppler imaging) were utilized to interrogate the extracranial carotid arteries, the vertebral arteries and proximal subclavian arteries bilaterally. The degree of stenosis is determined by criteria similar to NASCET. FINDINGS: Right Side: 1. There is no significant atherosclerotic plaque seen in the bifurcation/proximal ICA region. 2. The common carotid artery PSV proximally is 99 cm/s and distally 93 cm/s. 3. The proximal internal carotid artery velocities are 79 cm/s systolic and 28 cm/s diastolic. 4. The proximal external carotid artery PSV is 132 cm/s. 5. The vertebral artery shows antegrade flow. 6. The subclavian artery waveforms are normal. Left Side: 1. There is mild atherosclerotic plaque seen in the bifurcation/proximal ICA region. 2. The common carotid artery PSV proximally is 98 cm/s and distally 88 cm/s. 3. The proximal internal carotid artery velocities are 86 cm/s systolic and 36 cm/s diastolic. 4. The proximal external carotid artery PSV is 137 cm/s. 5. The vertebral artery shows antegrade flow. 6. The subclavian artery waveforms are normal. US/US carotid duplex BI IMPRESSION: 1. RIGHT: Normal right internal carotid artery without atherosclerotic plaque or hemodynamically significant stenosis. 2. LEFT: Minimal, non-hemodynamically significant stenosis of the proximal left internal carotid artery corresponding to a 0-49% stenosis by velocity criteria.
== END 2023-11-10 09:55 | disposition home or self-care (01) ==
LOC: HO.US 09:54
PROVIDERS: PCP Student in an Organized Health Care Education/Training Program; Visit Provider Internal Medicine Cardiovascular Disease
DX: R09.89 Other specified symptoms and signs involving the circulatory and respiratory systems (principal)
CPT/HCPCS: 93880

== ENCOUNTER 2023-11-13 10:10 | Outpatient (REF) | payer MEDICARE, SELFPAY ==
[2023-11-13 14:26] LABS: PSA,Total (Free>4and<10) 2.12 ng/mL (0.00-4.00)
== END 2023-11-13 10:11 | disposition home or self-care (01) ==
LOC: HO.HMGCLDS 10:10
PROVIDERS: PCP Student in an Organized Health Care Education/Training Program; Visit Provider Urology
DX: Z12.5 Encounter for screening for malignant neoplasm of prostate (principal); R97.20 Elevated prostate specific antigen [PSA]
CPT/HCPCS: 36415; 84153

== ENCOUNTER 2023-11-18 13:12 | Outpatient (AMB) | payer OTHER, SELFPAY ==
[2023-11-18 14:04] VITALS: BP 110/52; PULSE 58; BMI 23.3
--- NOTE | 2023-11-18 14:04 | MHC.OFFVIS ---
Intake Vital Signs 11/18/23 14:04 Height 5 ft 9 in Weight 157 lb 13.616 oz BMI 23.3 BP 110/52 L Blood Pressure Location Lt brachial Position Sitting Pulse 58 Pulse Source Pulse Oximeter Intake Visit Reasons: 1 mth fu after carotid ul Intake Note: pt in office visit after a carotid/ pt states that he is doing fine. 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 Intern Required: No Accompanied by: Self / Same As Patient Allergies No Known Allergies Allergy (Verified 07/03/23 09:02) Medication List - Last Reconciled 11/18/23 by Bong Arndt MD amlodipine 10 mg PO DAILY aspirin (Adult Aspirin Regimen) 81 mg PO DAILY atorvastatin 40 mg PO DAILY celecoxib 100 mg PO BID clonidine HCl 0.1 mg PO BID finasteride 5 mg PO DAILY 90 days hydrochlorothiazide 25 mg PO DAILY lisinopril 40 mg PO BID metoprolol tartrate 50 mg PO BID multivitamin (Daily Multi-Vitamin tablet) 1 tab PO DAILY tadalafil 5 mg PO Q OTHER DAY tamsulosin 0.4 mg PO DAILY ubidecarenone-omega 3-vit E 25-150-200 mg-mg-unit (Co R-56-Cnndquu E-Fish Oil) 1 cap PO DAILY HPI HPI Comments History of Present Illness Details 63-year-old gentleman here for follow-up. Blood pressure is well controlled. He has no chest discomfort. He has dyspnea on exertion and was a former smoker and his PFTs as shown emphysema. Overall he is clinically stable and is denying any new symptoms. Blood pressure control is good. He is smoking half pack per day. He has used Wellbutrin in the past with some success and will be using it. 04/08/23: He is here for follow-up. He has been doing well. He is taking amlodipine 10 mg daily, clonidine 0.1 mg twice a day, hydrochlorothiazide 25 mg daily, lisinopril 40 mg daily, and metoprolol 50 mg twice a day. Blood pressure control is good. No dizziness or lightheadedness. He continues to smoke and we had a detailed discussion again about smoking cessation. 10/19/2023: He returns for follow-up. End of August he went to [facility] Emergency Department because he started feeling dizzy and said that he almost passed out. He felt that he was going to black out and it was not a vertigo like feeling. He said he checked his blood pressure at home before the EMS arrived and his blood pressure was 180/110. He said he has been taking his medications regularly in particular he has not missed clonidine. He said he went to the ER and after waiting for several hours he decided to leave from the emergency department. He said since then he has been fine over the last month and did not have any further symptoms. He said he has checked his blood pressure at home it has been running anywhere from 140s to high 150s. In the office currently his blood pressure manually is 150/90. He is saying that he has been taking medications regularly. 11/18/23: He is here for f/u. He has been doing well. No chest pain or shortness breath. He has been trying to quit smoking. He is saying his quit date is December 13. He is asking for Chantix. [facility] Medical History COVID-19 vaccine series completed Dilation of aorta Dyspnea on exertion Ex-smoker for less than 1 year HLD (hyperlipidemia) HTN (hypertension) On beta chuck at home Personal history of nicotine dependence Renal cyst Resistant hypertension Surgical History History of hand surgery Presence of tooth-root and mandibular implants (~2020) History of esophagogastroduodenoscopy (EGD) (~2011) History of colonoscopy (~2011) History of vasectomy (~1991) Family History Father COPD (chronic obstructive pulmonary disease) Mother Heart disease Thyroid cancer Social History Are you a primary childcare aide to a significant other at home: No Alcohol intake: current Alcohol intake frequency: holidays/special occasions only Patient Tobacco Use Status: Current someday Tobacco user Tobacco use type: Cigarette Years Smoked: 25 +/- Substance Use Type: Marijuana Current occupational status: employed 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 Current occupational exposures/hazards: No Review of Systems Const Denies chills, Denies fatigue, Denies fever(s), Denies frequent falls, Denies weakness, Denies weight gain and Denies weight loss ENT Denies dizziness Card Denies chest pain, Denies leg edema, Denies lightheadedness, Denies palpitations, Denies dyspnea and Denies dyspnea on exertion Resp Denies cough, Denies dyspnea and Denies dyspnea on exertion GI Denies hematochezia Musc Denies abnormal gait, Denies muscle weakness, Denies numbness, Denies radiating pain into limb and Denies tingling Neuro Denies abnormal gait, Denies dizziness, Denies frequent falls, Denies numbness, Denies tingling and Denies weakness Endo Denies fatigue and Denies palpitations Physical Exam Vital Signs: Last Vital Signs Pulse 58 11/18/23 14:04 BP 110/52 L 11/18/23 14:04 BMI result Body Mass Index 23.3 GENERAL APPEARANCE: in no acute distress. NECK/THYROID: Right carotid bruit, no jugular venous distention. SKIN: no suspicious lesions, warm and dry. HEART: no murmurs, regular rate and rhythm, S1, S2 normal. LUNGS: clear to auscultation bilaterally. Diminished breath sounds bilaterally. ABDOMEN: normal, bowel sounds present, soft, nontender, nondistended. EXTREMITIES: no edema. PERIPHERAL PULSES: equal. NEUROLOGIC: nonfocal, alert and oriented. PSYCH: mood/affect full range. Assessment & Plan Assessment & Plan (1) Essential hypertension: Code(s): I10 - Essential (primary) hypertension (2) Carotid bruit: Code(s): R09.89 - Other specified symptoms and signs involving the circulatory and respiratory systems Plan Pleasant 63-year-old gentleman is here for follow-up. He has known history of hypertension. He is on multiple medications with reasonable blood pressure control currently. He also is an active smoker and is trying to quit smoking. He underwent carotid ultrasound for carotid bruits showing mild left carotid disease. I have explained to him that smoking cessation is very important for him. We will give him a Chantix script. Continue same medications for now. Follow-up with us in 4 months. Thank you for allowing me to participate in the care of your patient. Please feel free to contact me if you have any questions. Medications: New varenicline PO PER PKG DIR 53 ea 0RF Z87.891 - Personal history of nicotine dependence Coding Level of Care Code Est Pt Level 4 (08720) Diagnoses Essential hypertension I10 Carotid bruit R09.89
== END 2023-11-18 15:00 | disposition home or self-care (01) ==
PROVIDERS: PCP Student in an Organized Health Care Education/Training Program; Visit Provider Internal Medicine Cardiovascular Disease
DX: I10 Essential (primary) hypertension (principal); R09.89 Other specified symptoms and signs involving the circulatory and respiratory systems
CPT/HCPCS: 99214

== ENCOUNTER → 2023-11-18 13:12 | Outpatient (BNVA) | payer OTHER, SELFPAY | PROVIDERS: PCP Student in an Organized Health Care Education/Training Program; Visit Provider Internal Medicine Cardiovascular Disease | DX: R09.89 Other specified symptoms and signs involving the circulatory and respiratory systems (principal); I10 Essential (primary) hypertension | CPT/HCPCS: 99212 ==

== ENCOUNTER 2023-11-25 10:56 | Outpatient (AMB) | payer OTHER, SELFPAY ==
--- NOTE | 2023-11-25 10:57 | A.OFFVIS_ITS ---
Intake Intake Visit Reasons: 6M PSA(set)vm to confirm/ no answer Intake Note: Patient presents today for a telehealth follow-up on PSA Meds- Finasteride, Tadalafil, Tamsulosin Allergies to Antibiotic- No Known Allergies Blood Thinner- Aspirin Line Fixer Required: No Allergies No Known Allergies Allergy (Verified 11/25/23 10:59) Medication List - Last Reconciled 11/25/23 by Miah Martínez MD amlodipine 10 mg PO DAILY aspirin (Adult Aspirin Regimen) 81 mg PO DAILY atorvastatin 40 mg PO DAILY celecoxib 100 mg PO BID clonidine HCl 0.1 mg PO BID finasteride 5 mg PO DAILY 90 days hydrochlorothiazide 25 mg PO DAILY lisinopril 40 mg PO BID metoprolol tartrate 50 mg PO BID multivitamin (Daily Multi-Vitamin tablet) 1 tab PO DAILY tadalafil 5 mg PO Q OTHER DAY 90 days ubidecarenone-omega 3-vit E 25-150-200 mg-mg-unit (Co Z-64-Hlzdzyq E-Fish Oil) 1 cap PO DAILY varenicline PO PER PKG DIR HPI HPI Comments History of Present Illness Details Andrae is a pleasant male. He is a patient of Dr. Cardona. He is seen for the following urologic issues. - erectile dysfunction - lower urinary tract symptoms Telemedicine Evaluation 15 min Consultation ObjectWay Carin Video attempted Continue fall in PSA on finasteride Has noticed some improvement in urinary parameters 6 month follow-up MANJIT 2+ prostate soft Erectile dysfunction Progressive Able to obtain but cannot maintain erection Prior trial of on demand medications no longer effective Comorbidities hypertension and dyslipidemia Hypertensive medications include metoprolol Good response to daily tadalafil for bladder symptomatology Lower urinary tract symptoms Initial presentation with nocturia x2, weakness of stream Prior medications include tamsulosin Finasteride daily PSA 02/03 6.1, 06/06 3.2, 12/05 2.1 [facility] Medical History COVID-19 vaccine series completed On beta chuck at home HTN (hypertension) Ex-smoker for less than 1 year Dilation of aorta Personal history of nicotine dependence Dyspnea on exertion Renal cyst HLD (hyperlipidemia) Resistant hypertension Surgical History History of hand surgery Presence of tooth-root and mandibular implants (~2020) History of esophagogastroduodenoscopy (EGD) (~2011) History of colonoscopy (~2011) History of vasectomy (~1991) Family History Father COPD (chronic obstructive pulmonary disease) Mother Heart disease Thyroid cancer Social History Are you a primary medicare compliance auditor to a significant other at home: No Alcohol intake: current Alcohol intake frequency: holidays/special occasions only Patient Tobacco Use Status: Current someday Tobacco user Tobacco use type: Cigarette Years Smoked: 25 +/- Substance Use Type: Marijuana Current occupational status: employed 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 Current occupational exposures/hazards: No Review of Systems Const All systems reviewed & are unremarkable except as noted in HPI and below Reports no additional complaints Resp Reports no additional complaints GI Reports no additional complaints Reports as per HPI Musc Reports no additional complaints Physical Exam Telemedicine evaluation Appropriate responses Regular breathing rate and rhythm HEENT Head: Yes normal to inspection Ears: hearing grossly normal bilaterally Eyes General: appearance normal, both eyes and all related structures Neck Neck: Yes normal visual inspection Chest Chest palpation & inspection: normal inspection of the chest Resp Effort & Inspection: normal respiratory effort and able to speak in complete sentences Assessment & Plan Assessment & Plan (1) Erectile dysfunction: Code(s): N52.9 - Male erectile dysfunction, unspecified (2) Nocturia associated with benign prostatic hyperplasia: Code(s): N40.1 - Benign prostatic hyperplasia with lower urinary tract symptoms; R35.1 - Nocturia (3) Elevated PSA: Code(s): R97.20 - Elevated prostate specific antigen [PSA] Plan Six-month PSA Refilled tadalafil finasteride Orders: Orders Prostate Specific Antigen 6 Months R97.20 - Elevated prostate specific antigen [PSA] Medications: Changed From tadalafil 5 mg PO Q OTHER DAY sexual activity N52.01 - Erectile dysfunction due to arterial insufficiency To tadalafil 5 mg PO Q OTHER DAY 90 tabs 1RF sexual activity 90 days N52.01 - Erectile dysfunction due to arterial insufficiency Refilled finasteride 5 mg PO DAILY 90 tabs 1RF 90 days R97.20 - Elevated prostate specific antigen [PSA], N40.1 - Benign prostatic hyperplasia with lower urinary tract symptoms, N13.8 - Other obstructive and reflux uropathy, R33.9 - Retention of urine, unspecified Patient Instructions: Imaging studies, laboratory and physical exam results were discussed and reviewed in detail. No major barriers to patient understanding were identified. An opportunity to ask questions regarding the treatment plan was provided. All questions were answered. The patient expressed understanding and agreement with the above treatment plan. The patient is aware they should contact our office by phone for worsening of their current condition or the appearance of new urologic symptoms. Compliance is encouraged with any medications and followup testing that is ordered. It is a privilege to participate in the urologic care of your patient. If you have any questions or concerns regarding treatment for the above conditions, or other urologic issues, please do not hesitate to contact me. The office telephone contact is [phone]. This note is constructed using voice recognition software. While every effort has been made to ensure accuracy transcription coordinator errors may have been included. Yours sincerely, Dr Miah Martínez MD, [facility] - Urology Providers of Expert, Compassionate Care for the Genitourinary System Telehealth Telehealth Location of provider rendering services: practice address Location of patient: address on file Patient Identification confirmed using: Name, : Yes Telehealth method: video Patient verbally consented to treatment: Yes Patient verbally consented to billing insurance company: Yes Patient informed of any privacy concerns related to visit: Yes Coding Level of Care Code Tele Est Pt Level 3 (57548) Diagnoses Erectile dysfunction N52.9 Nocturia associated with benign prostatic hyperplasia N40.1; R35.1 Elevated PSA R97.20
== END 2023-11-25 11:37 | disposition home or self-care (01) ==
LOC: HO.HUSH 10:56
PROVIDERS: PCP Student in an Organized Health Care Education/Training Program; Visit Provider Urology
DX: N52.9 Male erectile dysfunction, unspecified (principal); N40.1 Benign prostatic hyperplasia with lower urinary tract symptoms; R35.1 Nocturia; R97.20 Elevated prostate specific antigen [PSA]
CPT/HCPCS: 99213

== ENCOUNTER → 2023-11-25 10:56 | Outpatient (BNVA) | payer OTHER, SELFPAY | PROVIDERS: PCP Student in an Organized Health Care Education/Training Program; Visit Provider Urology ==

== ENCOUNTER 2024-01-27 10:42 | Outpatient (REF) | payer MEDICARE, SELFPAY ==
--- NOTE | ~2024-01-27 | CT_ITS ---
EXAMINATION: CT LOW-DOSE SCREENING CHEST WITHOUT CONTRAST CLINICAL INFORMATION: Personal history of nicotine dependence. The patient has a 20 pack-year history of smoking, having quit 8 weeks ago. COMPARISON: CT chest 02/26/2021. Chest x-ray 09/30/2017. TECHNIQUE: Multidetector volumetric CT imaging of the chest is performed on a Siemens SOMATOM Definition scanner without contrast using low dose technique. Additional 2D coronal and sagittal reformatted images and axial 3D maximum intensity projection (MIP) images are generated on the CT workstation. This CT examination was performed using dose optimization techniques as appropriate, variously including the following: *Automated exposure control *Adjustment of mA and/or kV according to patient size (this includes techniques or standardized protocols for targeted exams where dose is matched to indication/reason for exam; i.e. extremities or head) *Use of iterative reconstruction technique TOTAL EXAM DLP: 49.1 mGy-cm. CTDIvol: 1.37 mGy. FINDINGS: PULMONARY NODULES: Again seen are a number of pulmonary nodular densities which appear unchanged when compared to the prior study from 02/26/2021 which was the patient's baseline exam. Ochoa images of all have been saved. One of the largest is a 5 mm right upper lobe nodule (5:128 compare prior 5:153). Severe emphysematous changes are again seen. There is mild diffuse bronchial thickening. No focal lung nodule or mass. No effusion or pneumothorax. Central airways patent. MEDIASTINUM: No mediastinal, hilar or axillary adenopathy or free fluid collection. CORONARY ARTERY CALCIFICATION: Moderate. THYROID GLAND: Unremarkable to the extent seen. CARDIOVASCULAR STRUCTURES: Aortic and heart size normal. No pericardial effusion. CHEST WALL/AXILLA: Unremarkable. UPPER ABDOMEN: Included portions of the solid organs in the upper abdomen unremarkable on noncontrast imaging. A benign right upper pole 2.6 cm Bosniak class I renal cyst is noted which requires no additional imaging or followup. No solid renal masses are seen. OSSEOUS STRUCTURES: No suspicious focal findings. Mild degenerative changes are present in the spine. CT/CT lung screening IMPRESSION: Pulmonary nodular densities unchanged in almost 3 years consistent with benign findings. No evidence of malignancy. ASSESSMENT: 1. Lung-RADS Category 2: Benign appearance or behavior of nodules. N/A 2. Lung-RADS Category S: Negative. There are no clinically significant or potentially clinically significant findings not related to the lungs requiring urgent additional evaluation. RECOMMENDATION: Continued routine annual low-dose CT lung screening in 1 year is recommended. An order for CT CHEST LOW DOSE CANCER SCREENING ([id number]) can be placed.
== END 2024-01-27 10:43 | disposition home or self-care (01) ==
LOC: HO.CT 10:42
PROVIDERS: PCP Internal Medicine; Visit Provider Nurse Practitioner Family
DX: Z12.2 Encounter for screening for malignant neoplasm of respiratory organs (principal); Z87.891 Personal history of nicotine dependence
CPT/HCPCS: 71271

== ENCOUNTER 2024-02-09 09:09 | Outpatient (REF) | payer MEDICARE, SELFPAY ==
[2024-02-09 15:24] LABS: Alanine Aminotransferase 14 U/L (0-40); Albumin Level 4.2 g/dL (3.5-5.0); Alkaline Phosphatase 69 U/L (39-117); Anion Gap 12 (12-20); Aspartate Amino Transferase 18 U/L (5-37); Bilirubin Direct 0.2 mg/dL (0.0-0.5); Bilirubin Total 0.5 mg/dL (0.0-1.0); Blood Urea Nitrogen 15 mg/dL (9-16); Calcium 9.5 mg/dL (8.4-10.2); Carbon Dioxide 26 mmol/L (22-29); Chloride 104 mmol/L (96-108); Cholesterol 199 mg/dL (<200); Estimated Glomerular Filt Rate > 60; Glucose Random 77 mg/dL (60-115); HDL Cholesterol 50 mg/dL (>40); LDL Cholesterol Calculated 130 mg/dL (<100); Potassium 3.9 mmol/L (3.3-5.1); Sodium 138 mmol/L (135-145); Total Protein 6.9 g/dL (6.5-8.0); Triglycerides 96 mg/dL (<150)
== END 2024-02-09 09:10 | disposition home or self-care (01) ==
LOC: HO.CHCLDS 09:09
PROVIDERS: Visit Provider Student in an Organized Health Care Education/Training Program
DX: E78.00 Pure hypercholesterolemia, unspecified (principal)
CPT/HCPCS: 36415; 80048; 80061; 80076

== ENCOUNTER → 2024-02-25 08:54 | Outpatient (BNVA) | payer OTHER, SELFPAY | PROVIDERS: PCP Student in an Organized Health Care Education/Training Program; Visit Provider Nurse Practitioner ==

== ENCOUNTER 2024-05-23 13:35 | Outpatient (REF) | payer OTHER, SELFPAY ==
[2024-05-23 17:30] LABS: Prostate Specific Antigen 2.58 ng/mL (<0.05-4.0)
== END 2024-05-23 13:36 | disposition home or self-care (01) ==
LOC: HO.HMGCLDS 13:35
PROVIDERS: PCP Student in an Organized Health Care Education/Training Program; Visit Provider Urology
DX: R97.20 Elevated prostate specific antigen [PSA] (principal); Z12.5 Encounter for screening for malignant neoplasm of prostate
CPT/HCPCS: 36415; 84153

== ENCOUNTER 2024-07-13 15:06 | Outpatient (AMB) | payer OTHER, SELFPAY ==
[2024-07-13 15:37] VITALS: BP 110/62; PULSE 64; BMI 23.6
--- NOTE | 2024-07-13 15:37 | A.OFFVIS_ITS ---
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: No Accompanied by: Self / Same As Patient Allergies No Known Allergies Allergy (Verified 02/25/24 08:58) Medication List - Last Reconciled 07/13/24 by Bong Arndt MD amlodipine 10 mg PO DAILY aspirin (Adult Aspirin Regimen) 81 mg PO DAILY atorvastatin 40 mg PO DAILY bisacodyl (Dulcolax (bisacodyl)) 10 mg (2 x 5 mg) PO BEDTIME 2 days clonidine HCl 0.1 mg PO BID finasteride 5 mg PO DAILY 90 days hydrochlorothiazide 25 mg PO DAILY lisinopril 40 mg PO BID metoprolol tartrate 50 mg PO BID multivitamin (Daily Multi-Vitamin tablet) 1 tab PO DAILY peg 3350-electrolytes 236-22.74-6.74 -5.86 gram (Golytely) 240 mL PO Q10M 1 day tadalafil 5 mg PO Q OTHER DAY 90 days ubidecarenone-omega 3-vit E 25-150-200 mg-mg-unit (Co L-16-Uuryzfj E-Fish Oil) 1 cap PO DAILY varenicline 1 mg PO BID HPI Comments Details: 64-year-old gentleman here for follow-up. Blood pressure is well controlled. He has no chest discomfort. He has dyspnea on exertion and was a former smoker and his PFTs as shown emphysema. Overall he is clinically stable and is denying any new symptoms. Blood pressure control is good. He is smoking half pack per day. He has used Wellbutrin in the past with some success and will be using it. 04/08/23: He is here for follow-up. He has been doing well. He is taking amlodipine 10 mg daily, clonidine 0.1 mg twice a day, hydrochlorothiazide 25 mg daily, lisinopril 40 mg daily, and metoprolol 50 mg twice a day. Blood pressure control is good. No dizziness or lightheadedness. He continues to smoke and we had a detailed discussion again about smoking cessation. 10/19/2023: He returns for follow-up. End of August he went to [facility] Emergency Department because he started feeling dizzy and said that he almost passed out. He felt that he was going to black out and it was not a vertigo like feeling. He said he checked his blood pressure at home before the EMS arrived and his blood pressure was 180/110. He said he has been taking his medications regularly in particular he has not missed clonidine. He said he went to the ER and after waiting for several hours he decided to leave from the emergency department. He said since then he has been fine over the last month and did not have any further symptoms. He said he has checked his blood pressure at home it has been running anywhere from 140s to high 150s. In the office currently his blood pressure manually is 150/90. He is saying that he has been taking medications regularly. 11/18/23: He is here for f/u. He has been doing well. No chest pain or shortness breath. He has been trying to quit smoking. He is saying his quit date is December 13. He is asking for Chantix. 07/13/2024: He is here for follow-up. He has been doing well. He has stopped smoking for last 3 months. Blood pressure is well controlled. Overall doing well. [facility] Medical History COVID-19 vaccine series completed On beta chuck at home HTN (hypertension) Ex-smoker for less than 1 year Dilation of aorta Personal history of nicotine dependence Dyspnea on exertion Renal cyst HLD (hyperlipidemia) Resistant hypertension Surgical History History of hand surgery Presence of tooth-root and mandibular implants (~2020) History of esophagogastroduodenoscopy (EGD) (~2011) History of colonoscopy (~2011) History of vasectomy (~1991) Family History Father COPD (chronic obstructive pulmonary disease) Mother Heart disease Thyroid cancer Social History Are you a primary director of career services to a significant other at home: No Alcohol intake: current Alcohol intake frequency: holidays/special occasions only Patient Tobacco Use Status: Current someday Tobacco user Tobacco use type: Cigarette Years Smoked: 25 +/- Substance Use Type: Marijuana Current occupational status: employed 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 Current occupational exposures/hazards: No Review of Systems Const Denies chills, Denies fatigue, Denies fever(s), Denies frequent falls, Denies weakness, Denies weight gain and Denies weight loss ENT Denies dizziness Card Denies chest pain, Denies leg edema, Denies lightheadedness, Denies palpitations, Denies dyspnea and Denies dyspnea on exertion Resp Denies cough, Denies dyspnea and Denies dyspnea on exertion GI Denies hematochezia Musc Denies abnormal gait, Denies muscle weakness, Denies numbness, Denies radiating pain into limb and Denies tingling Neuro Denies abnormal gait, Denies dizziness, Denies frequent falls, Denies numbness, Denies tingling and Denies weakness Endo Denies fatigue and Denies palpitations Physical Exam Vital Signs: Last Vital Signs Pulse 64 07/13/24 15:37 BP 110/62 07/13/24 15:37 BMI result Body Mass Index 23.6 GENERAL APPEARANCE: in no acute distress. NECK/THYROID: Right carotid bruit, no jugular venous distention. SKIN: no suspicious lesions, warm and dry. HEART: no murmurs, regular rate and rhythm, S1, S2 normal. LUNGS: clear to auscultation bilaterally. Diminished breath sounds bilaterally. ABDOMEN: normal, bowel sounds present, soft, nontender, nondistended. EXTREMITIES: no edema. PERIPHERAL PULSES: equal. NEUROLOGIC: nonfocal, alert and oriented. PSYCH: mood/affect full range. Assessment & Plan Assessment & Plan (1) HLD (hyperlipidemia): Code(s): E78.5 - Hyperlipidemia, unspecified Category: Medical (2) Resistant hypertension: Code(s): I10 - Essential (primary) hypertension Category: Medical (3) Essential hypertension: Code(s): I10 - Essential (primary) hypertension Category: Medical Plan Pleasant 64 year gentleman who is here for follow-up. He has background history of hypertension hyperlipidemia. Blood pressure is well controlled on multiple medicines including amlodipine, clonidine, hydrochlorothiazide, lisinopril and metoprolol. He is on atorvastatin 40 mg for hyperlipidemia. His last LDL cholesterol was in January of 2024. We will arrange a fasting lipid panel for him. He will follow up with us once a year. Thank you for allowing me to participate in the care of your patient. Please feel free to contact me if you have any questions. Orders: Orders Lipid Panel Today E78.5 - Hyperlipidemia, unspecified Coding Level of Care Code Est Pt Level 4 (07045) Diagnoses HLD (hyperlipidemia) E78.5 Resistant hypertension I10 Essential hypertension I10
== END 2024-07-13 15:58 | disposition home or self-care (01) ==
LOC: HO.HCS 15:07
PROVIDERS: PCP Student in an Organized Health Care Education/Training Program; Visit Provider Internal Medicine Cardiovascular Disease
DX: E78.5 Hyperlipidemia, unspecified (principal); I10 Essential (primary) hypertension
CPT/HCPCS: 99214

== ENCOUNTER → 2024-07-13 15:06 | Outpatient (BNVA) | payer OTHER, SELFPAY | PROVIDERS: PCP Student in an Organized Health Care Education/Training Program; Visit Provider Internal Medicine Cardiovascular Disease | DX: E78.5 Hyperlipidemia, unspecified (principal); I10 Essential (primary) hypertension | CPT/HCPCS: 99212 ==

== ENCOUNTER 2024-08-03 09:29 | Day surgery (SDC) | payer OTHER, SELFPAY ==
--- NOTE | 2024-08-02 10:11 | P.CONAN_ITS ---
Documented by User: Ethel Wallis NP 08/02/24 10:12 HPI - Anesthesia Eval Consult details Narrative: 64yo M for Colonoscopy Follows [facility] for htn, hld. Last visit 06/2024, stable PMFSH Active Problems Active Problems: All Active Problems Tubular adenoma of colon (Acute) Pre-op examination (Acute) Personal history of tobacco use (Acute) Carotid bruit (Acute) Dizziness (Acute) Olecranon bursitis, left elbow (Acute) Elevated PSA (Acute) Nocturia associated with benign prostatic hyperplasia (Acute) Chest discomfort (Acute) Erectile dysfunction (Acute) Dupuytren's contracture of right hand (Acute) Essential hypertension (Acute) Preop cardiovascular exam (Acute) Ex-smoker for less than 1 year (Acute) Renal cyst (Acute) Personal history of nicotine dependence (Acute) Dyspnea on exertion (Acute) HLD (hyperlipidemia) (Acute) Resistant hypertension (Acute) Past Medical History Medical History COVID-19 vaccine series completed On beta chuck at home HTN (hypertension) Ex-smoker for less than 1 year Dilation of aorta Personal history of nicotine dependence Dyspnea on exertion Renal cyst HLD (hyperlipidemia) Resistant hypertension Family History Family History Father COPD (chronic obstructive pulmonary disease) Mother Heart disease Thyroid cancer Family history of problems with anesthesia: No Surgical History Surgical History History of hand surgery Presence of tooth-root and mandibular implants (~2020) History of esophagogastroduodenoscopy (EGD) (~2011) History of colonoscopy (~2011) History of vasectomy (~1991) History of Problems with Anesthesia: No Social History Social History Are you a primary career coordinator to a significant other at home: No Do you presently have visiting nurse or other home services: No Alcohol intake: current Alcohol intake frequency: holidays/special occasions only Patient Tobacco Use Status: Never used Tobacco Tobacco use type: Cigarette Years Smoked: 25 +/- Use of substances other than those prescribed or required for medical reasons: Yes Substance Use Type: Marijuana Have you been hit, kicked, punched, or otherwise hurt by someone within the past year? 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 Current occupational exposures/hazards: No Meds Allergies Allergy/AdvReac Type Severity Reaction Status Date / Time No Known Allergies Allergy Verified 02/25/24 08:58 Home Medications ?Medication ?Instructions ?Recorded ?Confirmed ?Last Taken ?Type amlodipine 10 mg tablet 10 mg PO DAILY 11/05/20 07/13/24 Unknown History atorvastatin 40 mg tablet 40 mg PO DAILY 11/05/20 07/13/24 Unknown History multivitamin (Daily Multi-Vitamin 1 tab PO DAILY 01/28/21 07/13/24 Unknown History tablet) clonidine HCl 0.1 mg tablet 0.1 mg PO BID 01/09/22 07/13/24 Unknown History ubidecarenone-omega 3-vit E 25 1 cap PO DAILY 10/19/23 07/13/24 Unknown History mg-150 (90-60) mg-200 unit capsule (Co P-39-Wqdhplg E-Fish Oil) Assessment and Plan Assessment Anesthesia Assessment: Chart Reviewed Final Anesthetic Review Family History of Problems with Anesthesia: No History of Problems with Anesthesia: No Documented by User: Yesenia Reed MD 08/03/24 11:58 [facility] Past Medical History Medical History COVID-19 vaccine series completed On beta chuck at home HTN (hypertension) Ex-smoker for less than 1 year Dilation of aorta Personal history of nicotine dependence Dyspnea on exertion Renal cyst HLD (hyperlipidemia) Resistant hypertension Family History Family History Father COPD (chronic obstructive pulmonary disease) Mother Heart disease Thyroid cancer Surgical History Surgical History History of hand surgery Presence of tooth-root and mandibular implants (~2020) History of esophagogastroduodenoscopy (EGD) (~2011) History of colonoscopy (~2011) History of vasectomy (~1991) Social History Social History Are you a primary career coordinator to a significant other at home: No Do you presently have visiting nurse or other home services: No Alcohol intake: current Alcohol intake frequency: holidays/special occasions only Patient Tobacco Use Status: Never used Tobacco Tobacco use type: Cigarette Years Smoked: 25 +/- Use of substances other than those prescribed or required for medical reasons: Yes Substance Use Type: Marijuana Have you been hit, kicked, punched, or otherwise hurt by someone within the past year? 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 Current occupational exposures/hazards: No Meds Allergies Allergy/AdvReac Type Severity Reaction Status Date / Time No Known Allergies Allergy Verified 02/25/24 08:58 Home Medications ?Medication ?Instructions ?Recorded ?Confirmed ?Last Taken ?Type amlodipine 10 mg tablet 10 mg PO DAILY 11/05/20 07/13/24 Unknown History atorvastatin 40 mg tablet 40 mg PO DAILY 11/05/20 07/13/24 Unknown History multivitamin (Daily Multi-Vitamin 1 tab PO DAILY 01/28/21 07/13/24 Unknown History tablet) clonidine HCl 0.1 mg tablet 0.1 mg PO BID 01/09/22 07/13/24 Unknown History ubidecarenone-omega 3-vit E 25 1 cap PO DAILY 10/19/23 07/13/24 Unknown History mg-150 (90-60) mg-200 unit capsule (Co C-42-Ehhxxuu E-Fish Oil) Exam Airway Mallampati Class: II TM Dist: >3cm Neck ROM: Full Denture: Upper and Lower Heart: rrr Lungs: cta Assessment and Plan Assessment Anesthesia Assessment: Anesthesia Plan Discussed Final Anesthetic Review NPO: Yes ASA Class: III Final Preanesthetic Review: No Changes in Pt Med Stat, Meds/Allgs Chart Reviewed, Consent Obtained/Reviewed and Anes Risks/Benef Reviewed Patient Risk: Intermediate Procedure Risk: Low Anesthetic Plan Anesthetic Plan: MAC: Disposition: Standard PACU
[2024-08-03 10:14] VITALS: BP 171/81; PULSE 60; RESP 16; TEMP 36.8; O2SAT 98; BMI 22.9
[2024-08-03] MEDS: Lactated Ringers 1,000 ML 100 ML IVCONT (10:23)
--- NOTE | 2024-08-03 10:42 | MHC.SHP ---
Pre-Procedural Eval Section A - 24 Hr Update-Section A only Date of Service: 08/03/24 Section B - Complete if H&P > 30 days Chief Complaint: Benign neoplasm of colon, unspecified Relevant Family History (Specify if Yes): No Relevant Social History: Tobacco Use Present Medications: see Short Stay Collaborative assessment Medical History: Significant History (COVID-19 vaccine series completed On beta chuck at home HTN (hypertension) Ex-smoker for less than 1 year Dilation of aorta Personal history of nicotine dependence Dyspnea on exertion Renal cyst HLD (hyperlipidemia) Resistant hypertension) History of Previous Operations: Relevant previous surgery/procedure and date(s) (History of hand surgery Presence of tooth-root and mandibular implants (~2020) History of esophagogastroduodenoscopy (EGD) (~2011) History of colonoscopy (~2011) History of vasectomy (~1991)) Allergies: Allergies Allergy/AdvReac Type Severity Reaction Status Date / Time No Known Allergies Allergy Verified 02/25/24 08:58 Review of Systems Sugical H&P ROS: Negative: Constitution, Cardiovascular, Respiratory, Neurological, Psychiatric, Hem-Onc, Allergic/Immunologic, Gastrointestinal, Genitourinary, Musculoskeletal, Integumentary, Endocrine and Eyes/Ears/Nose/Throat Exam Surgical H&P Exam: Normal: HEENT, Normal: Heart, Normal: Lungs, Normal: Extremities, Normal: Abdomen, Normal: Skin and Normal: Neurological Plan Diagnosis/Plan: Unchanged I have reviewed the history and physical and performed a pertinent physical examination on my patient. No changes have occurred unless specified. Time Spent With Patient Time: Total time managing care of this patient today ____ minutes.
--- NOTE | 2024-08-03 12:21 | HO.OPN-COLON ---
Colonoscopy Operative Note Operative Note Date of Service: 08/03/24 Narrative: Operative Information Procedure Description: Colonoscopy Indication: pos cologuard Anesthesia: MAC COLONOSCOPY Instrument: Olympus variable stiffness pediatric scope 190L Colonoscopy Monitoring: Vital signs and clinical assessment, continuous EKG monitoring, Pulse oximetry, Carbon Dioxide monitoring and blood pressure monitoring were done throughout the procedure. Colon withdrawal time was 21 minutes. Procedure: The patient was placed in the left lateral decubitis position and pre-procedure medications were administered. After a digital rectal examination of the ano-rectum, the video colonoscope was inserted into the rectum and advanced through the colon to the cecum/TI. The colonoscope was slowly withdrawn in a retrograde panoramic fashion and the colon mucosa was carefully examined including a retroflexed view of the rectum. Findings and interventions are described below. Procedure Difficulty: easy Findings: Terminal Ileum-normal Cecum:normal Ascending Colon: normal Transverse Colon - distal area there were x 3 sessile polyps 4-7 mm removed with cold forceps Descending Colon: 6-9 mm sessile polyp removed with cold snare Sigmoid Colon: at rectosigmoid junction there was semi pedunculated polyp 14 mm injected with eleview and removed with cold snare with one clip applied Rectum: Retroflexion with small internal hemorrhoids seen, grade I, x3 sessile polyps 7-9 mm removed with cold snare Anorectum - normal Intervention: cold snare, eleview injection, cold forceps Colon preparation: [place] Bowel Preparation Scale Right colon; 2 Transverse colon: 2 Left colon; 2 (0 = Unprepared colon segment with mucosa not seen due to solid stool that cannot be cleared. 1 = Portion of mucosa of the colon segment seen, but other areas of the colon segment not well seen due to staining, residual stool and/or opaque liquid. 2 = Minor amount of residual staining, small fragments of stool and/or opaque liquid, but mucosa of colon segment seen well. 3 = Entire mucosa of colon segment seen well with no residual staining, small fragments of stool or opaque liquid) Impression and Post Procedure Diagnosis: colon polyps internal hemorrhoids Plan: High fiber diet leaflet Avoid straining at stool, epsom salts and sitz bath, anusol supps or cream Repeat Colonoscopy in 1 year or earlier if clinically indicated Above findings were reviewed with the patient and relevant handouts were provided if indicated.
[2024-08-03 12:24] VITALS: BP 111/63; PULSE 56; RESP 16; TEMP 36.2; O2SAT 97
[2024-08-03 12:39] VITALS: BP 163/82; PULSE 56; RESP 16; TEMP 36.2; O2SAT 97
== END 2024-08-03 13:37 | disposition home or self-care (01) ==
PROVIDERS: PCP Student in an Organized Health Care Education/Training Program; Visit Provider Internal Medicine Gastroenterology
PROC: 0DJD8ZZ Inspection of Lower Intestinal Tract, Via Natural or Artificial Opening Endoscopic (ICD-10-PCS; CPT 45378; principal; 2024-08-03 12:10)
DX: R19.5 Other fecal abnormalities (principal); Z86.0101 Personal history of adenomatous and serrated colon polyps; D12.3 Benign neoplasm of transverse colon; D12.7 Benign neoplasm of rectosigmoid junction; K63.5 Polyp of colon; K62.1 Rectal polyp; K64.0 First degree hemorrhoids; I10 Essential (primary) hypertension; I1A.0 Resistant hypertension; E78.5 Hyperlipidemia, unspecified; N28.1 Cyst of kidney, acquired; Z79.899 Other long term (current) drug therapy; Z87.891 Personal history of nicotine dependence; Z98.52 Vasectomy status; Z98.890 Other specified postprocedural states
CPT/HCPCS: 45385; 45380; 45381; 88305; J2003; J2250; J2704

== ENCOUNTER → 2024-08-03 09:29 | Outpatient (BNV) | payer OTHER, SELFPAY | PROVIDERS: PCP Student in an Organized Health Care Education/Training Program; Visit Provider Internal Medicine Gastroenterology | DX: Z12.11 Encounter for screening for malignant neoplasm of colon (principal); R19.5 Other fecal abnormalities; D12.3 Benign neoplasm of transverse colon; D12.7 Benign neoplasm of rectosigmoid junction; K62.1 Rectal polyp; K64.0 First degree hemorrhoids | CPT/HCPCS: 45380; 45381; 45385 ==

== ENCOUNTER 2024-08-15 07:15 | Outpatient (REF) | payer OTHER, SELFPAY ==
[2024-08-15 09:02] LABS: Alanine Aminotransferase 22 U/L (0-40); Albumin Level 4.4 g/dL (3.5-5.0); Alkaline Phosphatase 89 U/L (39-117); Anion Gap 11 (12-20); Aspartate Amino Transferase 25 U/L (5-37); Bilirubin Direct 0.1 mg/dL (0.0-0.5); Bilirubin Total 0.5 mg/dL (0.0-1.0); Blood Urea Nitrogen 16 mg/dL (9-16); Calcium 9.9 mg/dL (8.4-10.2); Carbon Dioxide 27 mmol/L (22-29); Chloride 106 mmol/L (96-108); Cholesterol 227 mg/dL (<200); Estimated Glomerular Filt Rate > 60; Glucose Random 95 mg/dL (60-115); HDL Cholesterol 51 mg/dL (>40); LDL Cholesterol Calculated 150 mg/dL (<100); Potassium 4.4 mmol/L (3.3-5.1); Sodium 140 mmol/L (135-145); Total Protein 7.3 g/dL (6.5-8.0); Triglycerides 132 mg/dL (<150)
== END 2024-08-15 07:16 | disposition home or self-care (01) ==
LOC: HO.LAB 07:15
PROVIDERS: PCP Student in an Organized Health Care Education/Training Program; Visit Provider Internal Medicine Cardiovascular Disease
DX: I10 Essential (primary) hypertension (principal); E78.5 Hyperlipidemia, unspecified
CPT/HCPCS: 36415; 80048; 80061; 80076

== ENCOUNTER 2025-01-31 15:27 | Outpatient (REF) | payer OTHER, SELFPAY ==
--- NOTE | ~2025-01-31 | CT_ITS ---
CLINICAL HISTORY: Z87.891 - Personal history of nicotine dependence CT lung cancer screening (LDCT) Comparison: CT/OK/SR - CT LUNG SCREENING - 01/27/24 10:54 EDT Technique: Axial CT images of the chest using low-dose technique. Referring provider counseled the patient on shared decision-making for LDCT screening. Additional counseling was provided on smoking cessation. Effective radiation dose total: DLP 40.7 mGycm, CTDIvol 1.2 mGy. Findings: Pulmonary nodules: Note is again made of scattered noncalcified pulmonary nodules, the largest abutting the major fissure, within the right lower lobe measuring up to 5.5 mm. No new, increasing or suspicious nodule. Incidental pulmonary findings: Moderate centrilobular emphysema. Mild airway thickening. Subpleural reticular markings are present most pronounced at the lung bases, slightly progressive. Non pulmonary findings: Moderately severe atherosclerotic disease of the coronary arteries. Visualized upper abdomen is unremarkable. Impression: Mildly progressive early interstitial lung disease suggested LungRADS 2 - Benign Appearance: Continue annual screening with low dose Chest CT in 12 months. ##L2## Category 1: Normal; continue annual screening Category 2: Benign appearance or behavior, continue annual screening Category 3: Probably benign, [address] recommended Category 4A: Suspicious, [address] recommended; may consider PET/CT Category 4B: Suspicious, Additional diagnostics and/or tissue sampling recommended Category 4X: Suspicious, Additional diagnostics and/or tissue sampling recommended Category 0: Recalls (incomplete screen due to Incomplete coverage, Noise, Respiratory motion, Expiration, Obscured by acute abnormality) This document has been electronically signed by: Catrachito Day MD on 02/01/2025 11:14:29
--- OUTSIDE RECORDS SUMMARY | 2025-01-31 16:29 | XMS_ITS ---
Author Organization [facility] Address [address] [place] [address] Care Team Providers Care Magazine Publisher Name Role Phone Dinora Cardona Primary Care Provider Rupa Redd [phone] REASON FOR VISIT Questioning pt bal/QMB? Encounters Encounter Location Date Provider Diagnosis [facility] [address] [facility] [address] [place] [phone] 12/15/2024 Rupa Okeefe Plan Of Treatment No Information Progress Notes * Andrae DUNBAR GDOB: 8 (64 yo M)Acc No.[id number]:12/15/2024 Patient:?Andrae DUNBAR :1960???Age:64 Y???Sex:Male [address] [place] [address] * true * Date:? Generated for Printi ng/Faxing/eTransmitting on:?01/31/2025 04:29 PM EDT
--- OUTSIDE RECORDS SUMMARY | 2025-01-31 16:29 | XMS_ITS | Encounter Summary ---
Author Organization [employer] Address [address] [place] [address] [address] [place] [address] Care Team Providers Care Bindery Chief Name Role Phone Dinora Cardona MD Primary Care Provider [phone] Encounter Details Date Type Department Care Team (Late st Contact Info) Description 05/26/2023 Orders Only [facility] [address] [place] [address] Dinora Cardona MD [address] [place] [address] Social History Tobacco Use Types Packs/Day Years Used Date Smoking Tobacco: Every Day Cigarettes Depression Answer Date Recorded Patient Health Questionnaire-9 Score 0 05/25/2023 Depression Answer Date Recorded Patient Health Questionnaire-2 Score 0 05/25/2023 Sex and Gender Information Value Date Recorded Sex Assigned at Male 07/14/2022 10:20 AM EDT Legal Sex Male 10:20 AM EDT Gender Identity Male 07/14/2022 10:20 AM EDT Sexual Orientation Straight 07/14/2022 10 :20 AM EDT documented as of this encounter Plan of Treatment Upcoming Encounters Date Type Department Care Team (Late st Contact Info) Description 03/08/2025 9:30 AM EDT Office Visit [facility] [address] [place] [address] Dinora Cardona MD [address] [place] [address] documented as of this encounter Visit Diagnoses Not on filedocumented in this encounter Additional Health Concerns Assessment Noted Time PHQ-9 Depression Total Score: 0 05/25/20 9:50 AM EDT documented as of this encounter Care Teams Bindery Chief Relationship Specialty Start Date End Date Dinora Cardona MD [address] [place] [phone] PCP - General Family Medicine 08/26/12 documented as of this encounter
--- OUTSIDE RECORDS SUMMARY | 2025-01-31 16:29 | XMS_ITS | Encounter Summary ---
Author Organization [facility] Address [address] [facility] 7t [place] [address] Care Team Providers Care Compliance Nurse Name Role Phone Dinora Cardona MD Primary Care Provider [phone] Encounter Details Date Type Department Care Team (Late st Contact Info) Description 01/15/2023 Orders Only [facility] [address] [place] [address] Rosario Parks LPN Social History Tobacco Use Types Packs/Day Years Used Date Smoking Tobacco: Never Assessed Sex and Gender Information Value Date Recorded Sex Assigned at Male 07/14/2022 10:20 AM EDT Legal Sex Male 10:20 AM EDT Gender Identity Male 07/14/2022 10:20 AM EDT Sexual Orientation Straight 07/14/2022 10 :20 AM EDT documented as of this encounter Plan of Treatment Upcoming Encounters Date Type Department Care Team (Late st Contact Info) Description 03/08/2025 9:30 AM EDT Office Visit [facility] [address] [place] [address] Dinora Cardona MD [address] [place] [address] documented as of this encounter Procedures Procedure Name Priority Date/Time Associated Diagnosis Comments BASIC METABOLIC PANEL, FASTING Routine 05/25/2023 10:22 AM EDT documented in this encounter Results * (ABNORMAL) Basic Metabolic Panel, Fasting (05/25/2023 10:22 AM EDT) Sodium 139 135 - 145 mmol/L [facility] Potassium 3.6 3.3 - 5.1 mmol/L [facility] Chloride 105 96 - 108 mmol/L [facility] Carbon Dioxide 27 22 - 29 mmol/L [facility] Anion Gap 11(L) 12 - 20 [facility] Urea Nitrogen (BUN) 16 9 - 16 mg/dL [facility] Creatinine, Serum 0.80 0.5 - 1.4 mg/dL [facility] Estimated Glomerular Filt Rate >60 [facility] Comment:NOTE: For -Am erican individuals, multiply the result by 1.210.Chronic Kidney Disease: Estimated GFR < 60 mL/min/1.89c6Gjnglt Kidney Disease: Estimated GFR < 15 mL/min/1.73m2 Glucose Fasting 89 60 - 99 mg/dL [facility] Calcium 9.8 8.4 - 10.2 mg/dL [facility] 05/25/2023 10:2 2 AM EDT 05/25/2023 2:18 PM EDT Dinora Cardona MD LAB BLOOD ORDERABLES Final Resul t [facility] [address] [place] [address] [phone] documented in this encounter Visit Diagnoses Not on filedocumented in this encounter Care Teams Compliance Nurse Relationship Specialty Start Date End Date Dinora Cardona MD [address] [place] [address] PCP - General Family Medicine 08/26/12 documented as of this encounter
--- OUTSIDE RECORDS SUMMARY | 2025-01-31 16:29 | XMS_ITS | Encounter Summary ---
Author Organization [employer] Address [address] [facility] 7t [place] [address] Care Team Providers Care Legislative Advocate Name Role Phone Dinora Cardona MD Primary Care Provider Encounter Details Date Type Department Care Team (Late st Contact Info) Description 01/06/2024 Orders Only [facility] [address] [place] [address] Provider, MD Nilson Social History Tobacco Use Types Packs/Day Years Used Date Smoking Tobacco: Every Day Cigarettes Smokeless Tobacco: Former Depression Answer Date Recorded Patient Health Questionnaire-9 Score 0 05/25/2023 Housing Stability Answer Date Recorded What is your housing situation today? I have gus alvarado 06/30/[address] you li ve. Do you have problems with any of the following? None of the above 06/30/2023 Food Insecurity Answer Date Recorded Within the past 12 months, y ou worried that your food would run out before you got money to buy more: Never True 06/30/2023 Within the past 12 months,th e food you bought just didn't last and you didn't have enough money to get more: Never True Transportation Answer Date Recorded In the past 12 months, has l ack of transportation kept you from medical appts, meetings, work or from getting things needed for daily living? No 06/30/2023 Utilities Answer Date Recorded In the past 12 months, has t he electric, gas, oil or water company threatened to shut off services in your home? No 06/30/2023 Depression Answer Date Recorded Patient Health Questionnaire-2 [...] Description 03/08/2025 9:30 AM EDT Office Visit [facility] [address] [place] [address] Dinora Cardona MD [address] [place] [address] documented as of this encounter Procedures Procedure Name Priority Date/Time Associated Diagnosis Comments HM COLONOSCOPY Routine 03/09/2012 11:44 AM EDT HM COLONOSCOPY Routine 12/20/2008 11:46 AM EDT documented in this encounter Results * Hm Colonoscopy (03/09/2012 11:44 AM EDT) us Historical Provider HEALTH MAINTENANCE Final Result * Hm Colonoscopy (12/20/2008 11:46 AM EDT) us Historical Provider HEALTH MAINTENANCE Final Result documented in this encounter Visit Diagnoses Not on filedocumented in this encounter Additional Health Concerns Assessment Noted Time PHQ-9 Depression Total Score: 0 05/25/20 23 9:50 AM EDT documented as of this encounter Care Teams Legislative Advocate Relationship Specialty Start Date End Date Dinora Cardona MD [address] [place] [address] PCP - General Family Medicine 08/26/12 documented as of this encounter
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
--- OUTSIDE RECORDS SUMMARY | 2025-01-31 16:29 | XMS_ITS | Clinical Summary ---
Author Organization [employer] Address [address] [facility] 7t [place] [address] Care Team Providers Care Banking Officer Name Role Phone Dinora Cardona MD Primary Care Provider [phone] Allergies No known active allergies Medications tadalafil (Cialis) 5 MG tablet Active omega-3 (Fish Oil) 1000 MG capsule TAKE 1 CAPSULE (500 MG) BY MOUTH IN THE MORNING. 60 capsule 11 3 Active aspirin 81 MG EC tablet Take 1 tablet by mouth at bed time. 0 Active finasteride (Proscar) 5 MG tablet Active ezetimibe (Zetia) 10 MG tablet Take 10 mg by mouth Once per day. 4 Active Dutasteride-Tamsu losin HCl 0.5-0.4 MG capsule 1 capsule in the morning. Active amLODIPine (Norvasc) 10 MG tablet Take 1 tablet (10 mg) by mouth Once per day. 90 tablet 3 5 Active atorvastatin (Lipitor) 40 MG tablet Take 1 tablet (40 mg) by mouth Once per day. 90 tablet 3 5 Active cloNIDine (Catapres) 0.1 MG tablet Take 1 tablet (0.1 mg) by mouth 3 times daily. 270 tablet 3 5 Active metoprolol tartrate (Lopressor) 100 MG tablet Take 1 tablet (100 mg) by mouth 2 times daily. 60 tablet 5 11/09/19 Active lisinopril 40 MG tabletIndications :Primary hypertension Take 2 tablets (80 mg) by mouth Once per day. 60 tablet 11 5 11/09/19 Active hydroCHLOROthiazi de (HYDRODiuril) 25 MG tablet Take 1 tablet (25 mg) by mouth Once per day. 90 tablet 3 Active Active Problems Problem Noted Date Diagnosed Date Elevated PSA 08/24/2024 Hypercholesterolemia 02/20/2014 Adenomatous polyp of colon 02/20/2014 Essential hypertension 11/10/2011 Gastroesophageal reflux disease 11/10/2011 Vitamin D deficiency 02/18/2011 Encounters Date Type Department Care Team Description 11/09/2024 Orders Only [facility] [address] [place] [address] Dinora Cardona MD Primary hypertension 11/09/2024 Refill [facility] [address] [place] [address] Dinora Cardona MD from Last 3 Months Immunizations Immunization Administration Dates Next Due INFLUENZA INJECTABLE QUADRIV ALANT CCIIV4 MDCK Multi-dose vial 06/17/2019 Influenza Quadrivalent Adjuvanted 05/21/2023 Influenza injectable quadriv alent IIV4 with preservative 06/24/2018,06/12/2015 Influenza injectable quadriv alent preservative free 05/21/2022,06/06/2021,05/18/2020,06/17,09/09/2014 Influenza, High Dose Seasona l, Preservative Free 05/24/2024 Influenza, Split (incl. richa fied surface antigen) 07/05/2013 Influenza, Unspecified 02/13/2024 Influenza, seasonal, intrade rmal, preservative free 07/24/2012 Pneumococcal Polysaccharide PPSV23 05/22/2023 RSV Adjuvant 05/25/2023 TD (adult), 2 Lf tetanus tox oid, preservative free, adsorbed 08/18/2006 Td (adult), 5 Lf tetanus tox oid, preservative free, adsorbed 04/28/2017 Tdap 05/25/2023 Zoster, Recombinant 02/08/2021,11/16/2019 Social History Tobacco Use Types Packs/Day Years Used Date Smoking Tobacco: Every Day Cigarettes Smokeless Tobacco: Former Tobacco Cessation:Ready to Q uit: Not Asked; Counseling Given: Not Answered Alcohol Answer Date Recorded Frequency of Alcohol Consumption Not on file 02/24/2024 Average Number of Drinks Not on file 024 Frequency of Binge Drinking Not on file 02/12 Score 0 02/24/2024 Depression Answer Date Recorded Patient Health Questionnaire-9 Score 0 05/25/2023 Housing Stability Answer Date Recorded What is your housing situation today? I have gus childers 06/30/[address] you li [...] Orientation Straight 07/14/2022 10 :20 AM EDT Last Filed Vital Signs Vital Sign Reading Time Taken Comments Blood Pressure 140/86 08/24/2024 9:05 AM EST Pulse 66 08/24/2024 9:05 AM EST Temperature 36.6 ??C (97.9 ??F) 08/24/2024 9:05 AM ES T Respiratory Rate 14 08/24/2024 9:05 AM EST Oxygen Saturation 99% 08/24/2024 9:05 AM EST Inhaled Oxygen Concentration - - Weight 70.8 kg (156 lb) 08/24/2024 9:05 AM EST Height 175.3 cm (5' 9 ) 08/24/2024 9:05 AM EST Body Mass Index 23.04 08/24/2024 9:05 AM EST Plan of Treatment Upcoming Encounters Date Type Department Care Team (Late st Contact Info) Description 03/08/2025 9:30 AM EDT Office Visit [facility] [address] [place] [address] Dinora Cardona MD [address] [facility] [place] [address] Health Maintenance Due Date Last Done Comments CT Colonography 1958 FIT DNA/Cologuard 1958 FIT 1960 FOBT 1960 Sigmoidoscopy 1960 Hepatitis C Screening 02/16/1976 COVID-19 Vaccine ( season) 2024 02/01/2024, 05/21/2022, 12/31/2021, Additional history exists Pneumococcal Vaccine: 50+ Years (2 of 2 - PCV) 05/22/2024 05/22/2023 Depression Screening 05/25/2024 05/25/2023, 05/25/20 23 Alcohol/Substance Use Screening 02/23/2025 02/24/2024 SDOH Screening 02/23/2025 02/24/2024 Tobacco Screening 02/23/2025 02/24/2024 Colonoscopy 08/03/2025 03/09/2012, 12/20/2008 Colorectal Cancer Screening 08/03/2025 Lipid Panel 08/15/2029 08/15/2024, 01/13, 10/13/2023, Additional history exists DTaP/Tdap/Td Vaccines (2 - Td or Tdap) 05/25/2033 05/25/2023, 04/28/2017, 08/18/2006 Zoster Vaccines Completed 02/08/2021, 11/16/2019 RSV Patients and Patients Aged 60 years or older Completed 05/25/2023 Influenza Vaccine Completed 05/24/2024, , [...] patient's age to complete this topic Meningococcal Vaccine Aged Out No marry allison eligible based on patient's age to complete this topic RSV under 20 months Aged Out No longe r eligible based on patient's age to complete this topic Rotavirus Vaccines Aged Out No longer eligible based on patient's age to complete this topic Procedures Procedure Name Priority Date/Time Associated Diagnosis Comments LIPID PANEL, STANDARD Routine 08/15/2024 7:28 AM EST HM COLONOSCOPY Routine 03/09/2012 11:44 AM EDT from Last 3 Months or Most Recently Relevant to Health Maintenance Results * (ABNORMAL) Lipid Panel, Standard (08/15/2024 7:28 AM EST) Triglycerides 132 <150 mg/dL [facility] Comment:Desirable Triglyceri de: less than 150 mg/dLBorderline High Triglyceride 150-199 mg/dLHigh Triglyceride: 200-499 mg/dLVery High Triglyceride: greater than or equal to 5OO mg/dL Cholesterol 227(H) <200 mg/dL [facility] Comment:Desirable Cholestero l: less than 200 mg/dLBorderline High Cholesterol: 200-239 mg/dLHigh Cholesterol: greater than 239 mg/dL LDL Cholesterol Calculated 150(H) <100 mg/dL [facility] Comment:Desirable LDL: less than 100 mg/dLNear Optimal/Above Optimal LDL: 110- 129 mg/dLBorderline High LDL: 130-159 mg/dLHigh LDL: 160-189 mg/dLVery High LDL: greater than or equal to 190 mg/dL HDL Cholesterol 51 >40 mg/dL [facility] Comment:Desirable HDL: great er than 40 mg/dL Note: This HDL assay may give artificially low results in patients with liver disease. 08/15/2024 7:28 AM EST 08/15/2024 7:28 AM EST us Generic External Data Provider LAB BLOOD ORDERAB LES Final Result [facility] [address] [place] [phone] * Hm Colonoscopy (03/09/2012 11:44 AM EDT) us Historical Provider HEALTH MAINTENANCE Final Result from Last 3 Months or Most Recently Relevant to Health Maintenance Insurance [facility] < 65 Care Teams Banking Officer Relationship Specialty Start Date End Date Dinora Cardona MD [address] [place] [phone] PCP - General Family Medicine 08/26/12
--- OUTSIDE RECORDS SUMMARY | 2025-01-31 16:29 | XMS_ITS | Patient Health Record ---
Author Organization [facility] Rosina mery Bansal Address [address] [place] [address] Care Team Providers Care Econometrics Professor Name Role Phone Dinora Cardona Primary Care Provider Rupa Redd Unavailable [phone] Rao De Anda Unavailable [phone] Allergies No Known Allergies Reason For Referral No Information Medications Medication SIG (Take, Route, Frequency, Duration) Notes Start Date End Date Status Metoprolol Succinate 100 MG 1 capsule Or ally Once a day Active Tadalafil 5 MG 1 tablet as needed Orally Once a day Active Proscar 5 MG 1 tablet Orally Once a day Active Orthopedic Extra Depth Shoes With Custom Heat Molded Multidensity Innersoles 1 Pair shoes with 3 Pair custom heat molded innersoles Wear Daily for 365 days Active Caduet 10-10 MG 1 tablet Orally Once a day Active amLODIPine Besylate 10 MG 1 tablet Orall y Once a day Active Atorvastatin Calcium 40 MG 1 tablet Oral ly Once a day Active Lisinopril 40 MG 1 tablet Orally Once a day 2 a day Active buPROPion HCl ER (SR) 150 MG 1 tablet in the morning Orally Once a day Not-Taking Multivitamin Active cloNIDine 0.1 MG/24HR 1 patch to skin Transdermal Active hydrALAZINE HCl 25 MG 1 tablet with food Orally Three times a day Active Dutasteride-Tamsulosin HCl 0.5-0.4 MG 1 capsule Orally Once a day Active hydroCHLOROthiazide 25 MG 1 tablet in e morning Orally Once a day Active Metoprolol-HCTZ ER A ctive Delano 3 1000 MG 1 capsule Orally Once a day Active Celecoxib 100 MG 1 capsule with food Orally Once a day Active Social History Tobacco Use: Social History Observation Description Date Details (start date - stop date) Current Smoker NA - NA Tobacco Use/Smoking Question Answer Notes Are you a: current smoker Alcohol Screen Question Answer Notes Did you have a drink containing alcohol in the p ast year? Yes Points 0 Interpretation Negative Tobacco use other than smoking: Question Answer Notes Are you an other tobacco user? No Vital Signs Height 5 ft 9 in in 06/21/2024 Weight 155 lbs 06/21/2024 BMI 22.89 kg/m2 06/21/2024 Encounters Encounter Location Date Provider Diagnosis [facility] [address] 06/21/2024 Rao De Anda Tinea unguium B35.1 ; Pain in right toe(s) M79.674 and Pain in left toe(s) M79.[facility] [address] 03/21/2024 [facility] [address] [place] [address] 04/28/[address] [address] 05/31/[address] [address] 12/15/2024 Rupa Okeefe Assessments Encounter Date Diagnosis (ICD Code) Assessment Notes Treatment Notes Treatment Clinical Notes Section Notes 06/21/2024 Tinea unguium (ICD-10 - B35.1) 06/21/2024 Pain in right toe(s) (ICD-10 - M79.674) 06/21/2024 Pain in left toe(s) (ICD-10 - M79.675) Plan Of Treatment Pending Test Test Name Order Date X ray : Foot, left 3V 09/29/2023 Insurance Providers Payer Name Payer Address Payer Phone Subscriber Number Group Number Insured Name Patient Relationship to Insured Coverage Start Date Coverage End Date [facility] [employer] Claims [id number] [place] [id number] Andrae Dunbar Self - patient is the insured Medical (General) History Medical History History ICD Code Arthritis CAD (Cholesterol) High blood pressure Measles Mumps Chicken pox Surgical History Surgery Date(Month/Year) Hospitalization History Reason Date(Month/Year) [facility]- stroke symptoms 09/2023
--- OUTSIDE RECORDS SUMMARY | 2025-01-31 16:29 | XMS_ITS | Encounter Summary ---
Author Organization [employer] Address [address] [address] [place] [address] Care Team Providers Care Tool Straightener Name Role Phone Dinora Cardona MD Primary Care Provider [phone] Encounter Details Date Type Department Care Team (Late st Contact Info) Description 12/29/2023 Orders Only [facility] [address] [place], [place] [phone] Dinora Cardona MD [address] [place] [address] Social History Tobacco Use Types Packs/Day Years [...] Description 03/08/2025 9:30 AM EDT Office Visit [facility] [address] [place] [address] Dinora Cardona MD [address] [place] [address] documented as of this encounter Visit Diagnoses Not on filedocumented in this encounter Additional Health Concerns Assessment Noted Time PHQ-9 Depression Total Score: 0 05/25/20 23 9:50 AM EDT documented as of this encounter Care Teams Tool Straightener Relationship Specialty Start Date End Date Dinora Cardona MD [address] [place] [phone] PCP - General Family Medicine 08/26/12 documented as of this encounter
--- OUTSIDE RECORDS SUMMARY | 2025-01-31 16:29 | XMS_ITS ---
[facility] Organization [facility] Address [address] [place] [address] Care Team Providers Care Bulldozer Engineer Name Role Phone Dinora Cardona Primary Care Provider Rupa Redd Unavailable [phone] Rao De Anda Unavailable [phone] Allergies No Known Allergies REASON FOR VISIT Last PCP Visit: 04/14/2023, Painful nail(s) aggrevated by shoes and causing difficulty standing/walking. Medications Medication SIG (Take, Route, Frequency, Duration) Notes Start Date End Date Status Metoprolol Succinate 100 MG 1 capsule Or ally Once a day Active cloNIDine 0.1 MG/24HR 1 patch to skin Transdermal Active hydrALAZINE HCl 25 MG 1 tablet with food Orally Three times a day Active hydroCHLOROthiazide 25 MG 1 tablet in th e morning Orally Once a day Active [place] 3 1000 MG 1 capsule Orally Once a day Active Tadalafil 5 MG 1 tablet as needed Orally Once a day Active Celecoxib 100 MG 1 capsule with food Orally Once a day Active Proscar 5 MG 1 tablet Orally Once a day Active Atorvastatin Calcium 40 MG 1 tablet Oral ly Once a day Active Lisinopril 40 MG 1 tablet Orally Once a day 2 a day Active Caduet 10-10 MG 1 tablet Orally Once a day Active buPROPion HCl ER (SR) 150 MG 1 tablet in the morning Orally Once a day Not-Taking Multivitamin Active Dutasteride-Tamsulosin HCl 0.5-0.4 MG 1 capsule Orally Once a day Active Metoprolol-HCTZ ER A ctive Orthopedic Extra Depth Shoes With Custom Heat Molded Multidensity Innersoles 1 Pair shoes with 3 Pair custom heat molded innersoles Wear Daily for 365 days Active amLODIPine Besylate 10 MG 1 tablet Orall y Once a day Active Social History Tobacco [...] 06/21/2024 Encounters Encounter Location Date Provider Diagnosis [facility] [address] [facility] [address] [place] [address] 06/21/2024 Rao De Anda Tinea unguium B35.1 ; Pain in right toe(s) M79.674 and Pain in left toe(s) M79.675 Assessments Encounter Date Diagnosis (ICD Code) Assessment Notes Treatment Notes Treatment Clinical Notes Section Notes 06/21/2024 Tinea unguium (ICD-10 - B35.1) 06/21/2024 Pain in right toe(s) (ICD-10 - M79.674) 06/21/2024 Pain in left toe(s) (ICD-10 - M79.675) Plan Of Treatment Next Appt Details Follow Up: 6 Months, Reason: Procedure Notes * Category Sub-Category Detail Notes [...] as necessary. Patient chooses, no pharmaceutical tx (84695) Progress Notes * KASIEAndrae Miller GDOB: 8 (64 yo M)Acc No.[id number]:06/21/2024 Progress Note Patient:?Andrae Dunbar Provider:?Rao De Anda DPM :1960???Age:64 Y???Sex:Male Kalpesh e:06/21/2024 Address:[facility] [address] [facility] Pcp:Dinora Cardona Subjective: * Chief Complaints: * ??? Last PCP Visit: 04/14/2023 Painful nail(s) aggrevated by shoes and causing difficulty standing/walking. * HPI: ???Painful Nails:?Pt States Last PCP Visit:?Date:?12/21/2023 * ROS:?General/Constitutional:?Nausea?denies.?Vomiting?denies.?Hunger Thirst?denies.?Loss appetite?denies.?Chills?denies.?Fatigue?denies.?Fever?denies.?Night Sweats?denies.?Unexplained weight loss?denies.?Unexplained weight gain?denies.?HEENTM:?Dentures?denies.?Dizziness?denies.?Glasses/contacts?denies.?Retinopathy?de nies.?Blurred/double vision?denies.?TMJ?denies.?Discharge/drainage?denies.?Implants?denies.?Sore throat?denies.?Dental implants?denies.?Hard of hearing ?denies.?Difficulty chewing/swallowing/speaking?denies.?Nose bleeds?denies.?Sore mouth?denies.?Respiratory:?On Oxygen?denies.?Pneumonia/pleurisy?denies.?Bronchitis?denies.?Emphysema?denies.?C oughing?denies.?Cough blood?denies.?Shortness of breath?denies.?Wheezing?denies.?Cardiovascular:?Pacemaker?denies.?MVP?denies.?WPW?denies.?CHF?denies.?Heart attack?denies.?Septal defect?denies.?Rapid beat?denies.?Chest pain ?denies.?Atrial Fib.?denies.?Murmur/Palpitations?denies.?Gastrointestinal:?Hemorrhoids?denies.?Stomach/Abdominal pain?denies.?Dark blood stool?denies.?Irritable bowel ?denies.?Constipation?denies.?Diarrhea?denies.?Hematology:?Swelling?denies.?Clots?denies.?Varicose Veins?denies.?Bruising?denies.?Bleeding problem?denies.?Genitourinary:?Blood urine?denies.?Frequent/Painfu/urination/bladder control?denies.?Kidney stones?denies.?Infection (UTI)?denies.?Nephropathy?denies.?sex trans dis (STD)?denies.?Prostate?denies.?Musculoskeletal:?Hammertoes?denies.?Bunions?denies.?Back Pain?denies.?Muscle Cramps/ Resting?denies.?Muscle cramps / walking?denies.?Generalized aches and pains?denies.?Weakness?denies.?Integ.:?Chaney?denies.?Scars?denies.?Corns/calluses?denies.?Ingrown nails?denies.?Painful nails?denies.?Open Sores?denies.?Rashes?denies.?Neurologic:?Difficulty sleeping?denies.?Brain disorder?denies.?Numbness?denies.?Balance trouble?denies.?Confusion?denies.?Fainting/blackouts?denies.?Tingling?denies.?Tr emors?denies.? * Medical History:? * Surgical History:?Denies Pas t Surgical History * Hospitalization/Major Diagno stic Procedure:?[facility]- stroke symptoms 09/2023 * Family History:?Mother: dece ased, diagnosed with Diabetic - NIDDM, Unspecified essential hypertension.?Father: .? * Social History:?Tobacco Use:?Tobacco Use/Smoking?Are you a:?current smoker ?Tobacco use other than smoking?Are you an other tobacco user??No ???Drugs/Alcohol:?Drugs?Have you used drugs other than those for medical reasons in the past 12 months??Yes ?Marijuana??Yes ?Alcohol Screen?Did you have a drink containing alcohol in the past year??Yes ?Points?0 ?Interpretation?Negative ???Miscellaneous:?Caffeine: yes. ?Exercise: yes, works daily. ?Marital status: . 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 * Medications:?TakingMultivita min Metoprolol-HCTZ ER Dutasteride-Tamsulosin HCl 0.5-0.4 MG Capsule 1 capsule Orally Once a dayCaduet 10-10 MG Tablet 1 tablet Orally Once a dayProscar 5 MG Tablet 1 tablet Orally Once a dayLisinopril 40 MG Tablet 1 tablet Orally Once a day, Notes: 2 a dayAtorvastatin Calcium 40 MG Tablet 1 tablet Orally Once a dayCelecoxib 100 MG Capsule 1 capsule with food Orally Once a dayTadalafil 5 MG Tablet 1 tablet as needed Orally Once a dayMetoprolol Succinate 100 MG Capsule ER 24 Hour Sprinkle 1 capsule Orally Once a dayhydrALAZINE HCl 25 MG Tablet 1 tablet with food Orally Three times a daycloNIDine 0.1 MG/24HR Patch Weekly 1 patch to skin Transdermal [place] 3 1000 MG Capsule 1 capsule Orally Once a dayhydroCHLOROthiazide 25 MG Tablet 1 tablet in the morning Orally Once a dayamLODIPine Besylate 10 MG Tablet 1 tablet Orally Once a dayOrthopedic Extra Depth Shoes With Custom Heat Molded Multidensity Innersoles 1 Pair shoes with 3 Pair custom heat molded innersoles Wear DailyTaking Multivitamin Taking Metoprolol-HCTZ ER Taking Dutasteride-Tamsulosin HCl 0.5-0.4 MG Capsule 1 capsule Orally Once a dayTaking Caduet 10-10 MG Tablet 1 tablet Orally Once a dayTaking Proscar 5 MG Tablet 1 tablet Orally Once a dayTaking Lisinopril 40 MG Tablet 1 tablet Orally Once a day, Notes: 2 a dayTaking Atorvastatin Calcium 40 MG Tablet 1 tablet Orally Once a dayTaking Celecoxib 100 MG Capsule 1 capsule with food Orally Once a dayTaking Tadalafil 5 MG Tablet 1 tablet as needed Orally Once a dayTaking Metoprolol Succinate 100 MG Capsule ER 24 Hour Sprinkle 1 capsule Orally Once a dayTaking hydrALAZINE HCl 25 MG Tablet 1 tablet with food Orally Three times a dayTaking cloNIDine 0.1 MG/24HR Patch Weekly 1 patch to skin Transdermal Taking [place] 3 1000 MG Capsule 1 capsule Orally Once a dayTaking hydroCHLOROthiazide 25 MG Tablet 1 tablet in the morning Orally Once a dayTaking amLODIPine Besylate 10 MG Tablet 1 tablet Orally Once a dayTaking Orthopedic Extra Depth Shoes With Custom Heat Molded Multidensity Innersoles 1 Pair shoes with 3 Pair custom heat molded innersoles Wear DailyNot-Taking/PRNbuPROPion HCl ER (SR) 150 MG Tablet Extended Release 12 Hour 1 tablet in the morning Orally Once a dayMedication List reviewed and reconciled with the patientNot-Taking/PRN buPROPion HCl ER (SR) 150 MG Tablet Extended Release 12 Hour 1 tablet in the morning Orally Once a dayMedication List reviewed and reconciled with the patient * Allergies:?N.K.D.A.yes[Aller reshma Verified] Objective: * Vitals:?Ht: 5 ft 9 in, Wt:15 5, BMI:22.89, Shoe size:9.5. * Examination: ???Nails: ?NAILS are:?elongated,overgrown,dystrophic,greater than 3mm thick,discolored and friable with crumbly malodorous subungual debris, with pain on palpation.? Assessment: * Assessment: 1.?Tinea unguium - B35.1 (Pr imary)?2.?Pain in right toe(s) - M79.674?3.?Pain in left toe(s) - M79.675? Plan: * Treatment: * Procedures:?Debride Nail 6-10:?Nail debridement?Nail debridement performed extensively to reduce/remove overall nail length and girth, subungual debris, and necrotic tissue, by manual and electrical means with use of a nail nipper and/or dremel, to more viable healthy nail plate or bed tissue 6-10. Silver nitrate used for any petechial bleeding as necessary. Patient chooses, no pharmaceutical tx (18959).? * Procedure Codes:?26356 DEBRI DE NAIL, 6 OR MORE, Modifiers: XS * Follow Up:?6 Months * Images: * Sign off status: Completed true * Provider:?Rao De Anda DPM Date:? 024 Generated for Chintan calhoun/Jodie/Carmen on:?01/31/2025 04:29 PM EDT History and Physical Notes * HPI (History of Present Illness) Category Sub-Category Detail Notes Category Not es Painful Nails Pt States Last PCP Visit: Date:: 12/21/2023 Examination Category Sub-Category Detail Notes Category Not es Nails NAILS are: elongated,overgr own,dystrophic,greater than 3mm thick,discolored and friable with crumbly malodorous subungual debris, with pain on palpation
--- OUTSIDE RECORDS SUMMARY | 2025-01-31 16:29 | XMS_ITS ---
Author Organization [facility] Address [address] [place] [address] Care Team Providers Care Junior Business Analyst Name Role Phone Dinora Cardona Primary Care Provider Rupa Redd [phone] REASON FOR VISIT Cx w/reminder call Encounters Encounter Location Date Provider Diagnosis [facility] [address] [place] [phone] 12/27/2024 Rupa Okeefe Plan Of Treatment No Information Progress Notes * Andrae DUNBAR GDOB: 8 (64 yo M)Acc No.[id number]:12/27/2024 Progress Note Patient:?KASIEAngela Andrae Szymanski Provider:?Rupa Okeefe DPM :1960???Age:64 Y???Sex:Male Kalpesh e:12/27/2024 Address:[address] [place], [place] [id number] Pcp:Dinora Cardona Subjective: * Chief Complaints: * ???1. Cx w/reminder call. * Medical History:? Objective: * Vitals:? Assessment: Plan: * Treatment: * Images: * The named appointment provid er may or may not be the originator of this progress note, and it is not deemed complete until electronically signed by the appointment provider. Sign off status: Pending * Provider:?Rupa Okeefe DPM Date:?0 12/27/2024 Generated for Chintan ng/Faamritg/eTransmitting on:?01/31/2025 04:29 PM EDT
== END 2025-01-31 15:28 | disposition home or self-care (01) ==
LOC: HO.CT 15:27
PROVIDERS: PCP Student in an Organized Health Care Education/Training Program; Visit Provider Physician Assistant Medical
DX: Z12.2 Encounter for screening for malignant neoplasm of respiratory organs (principal); Z87.891 Personal history of nicotine dependence
CPT/HCPCS: 71271

== ENCOUNTER → 2025-01-31 15:30 | Outpatient (BNV) | payer OTHER, SELFPAY | PROVIDERS: PCP Student in an Organized Health Care Education/Training Program; Visit Provider Radiology Vascular & Interventional Radiology | DX: Z87.891 Personal history of nicotine dependence (principal) | CPT/HCPCS: 71271 ==

== ENCOUNTER 2025-02-21 06:40 | Outpatient (REF) | payer OTHER, SELFPAY ==
[2025-02-21 10:57] LABS: Alanine Aminotransferase 19 U/L (0-40); Albumin Level 4.6 g/dL (3.5-5.0); Alkaline Phosphatase 93 U/L (39-117); Anion Gap 14 (12-20); Aspartate Amino Transferase 31 U/L (5-37); Bilirubin Direct 0.1 mg/dL (0.0-0.5); Bilirubin Total 0.3 mg/dL (0.0-1.0); Blood Urea Nitrogen 14 mg/dL (9-16); Calcium 9.4 mg/dL (8.4-10.2); Carbon Dioxide 22 mmol/L (22-29); Chloride 109 mmol/L (96-108); Cholesterol 200 mg/dL (<200); Estimated Glomerular Filt Rate > 60; Glucose Random 93 mg/dL (60-115); HDL Cholesterol 52 mg/dL (>40); LDL Cholesterol Calculated 131 mg/dL (<100); Sodium 141 mmol/L (135-145); Total Protein 7.2 g/dL (6.5-8.0); Triglycerides 85 mg/dL (<150)
[2025-02-21 11:12] LABS: TSH reflex Free T4 1.28 uIU/mL (0.32-4.0)
== END 2025-02-21 06:41 | disposition home or self-care (01) ==
LOC: HO.HMGCLDS 06:40
PROVIDERS: PCP Student in an Organized Health Care Education/Training Program; Visit Provider Student in an Organized Health Care Education/Training Program
DX: E78.00 Pure hypercholesterolemia, unspecified (principal); I10 Essential (primary) hypertension
CPT/HCPCS: 36415; 80048; 80061; 80076; 84443

== ENCOUNTER 2025-05-11 14:33 | Outpatient (AMB) | payer OTHER, SELFPAY ==
--- OUTSIDE RECORDS SUMMARY | 2017-12-22 08:15 | XMS_ITS | Continuity of Care Document ---
Author Organization [facility] Address [address] [place] [id number] Phone Care Team Providers Care Engineering Leader Name Role Phone Smith Patterson MD Unavailable Unavailabl e Allergies, Adverse Reactions, Alerts Substance Reaction Status Criticality No Known Drug Allergies Active No I nformation Medications Medication Instructions Dosage Effective Dates (start - stop) Status Comments Advair Diskus 250 mcg-50 mcg/dose for Inhalation inhale 1 puff by inhalation route 2 times every day in the morning and evening approximately 12 hours apart 1.00 puff - Active clobetasol 0.05 % Topical Cream apply by topical route 2 times every day a thin layer to the affected area(s) 0.00 - Active Procedures Procedure Date MD_Follow Up Level 4 Lab_Drug Screen Beh_Intervention MD_Follow Up Level 4 Lab_Drug Screen Beh_Intervention MD_Follow Up Level 4 Lab_Drug Screen Beh_Intervention MD_Follow Up Level 4 Lab_Drug Screen Beh_Intervention CP_Cancelled MD_Follow Up Level 4 Lab_Drug Screen Beh_Intervention MD_Follow Up Level 4 Lab_Drug Screen Beh_Intervention Cancellation_Exception Beh_Intervention MD_Follow Up Level 4 Lab_Drug Screen MD_Follow Up Level 4 Lab_Drug Screen MD_Follow Up Level 4 Lab_Drug Screen Beh_Intervention MD_Follow Up Level 4 Lab_Drug Screen MD_Follow Up Level 4 Lab_Drug Screen MD_Follow Up Level 4 Lab_Drug Screen MD_Follow Up Level 4 Lab_Drug Screen MD_Follow Up Level 4 Lab_Drug Screen Beh_Intervention MD_Follow Up Level 4 Lab_Drug Screen MD_Follow Up Level 4 Lab_Drug Screen Beh_Intervention MD_Follow Up Level 4 Lab_Drug Screen MD_Follow Up Level 4 Lab_Drug Screen MD_Follow Up Level 4 Lab_Drug Screen MD_Follow Up Level 4 Lab_Drug Screen MD_Follow Up Level 4 Lab_Drug Screen Beh_Intervention MD_Follow Up Level 4 Lab_Drug Screen MD_Follow Up Level 4 Lab_Drug Screen MD_Follow Up Level 4 Lab_Drug Screen PT_Therapeutic Exercises_Each 15 Mins MD_Follow Up Level 4 Lab_Drug Screen PT_Therapeutic Exercises_Each 15 Mins PT_Therapeutic Exercises_Each 15 Mins PT_Therapeutic Exercises_Each 15 Mins PT_Therapeutic Exercises_Each 15 Mins PT_Therapeutic Exercises_Each 15 Mins PT_Therapeutic Exercises_Each 15 Mins PT_Therapeutic Exercises_Each 15 Mins PT_Electrical Stimulation PT_Therapeutic Exercises_Each 15 Mins PT_Therapeutic Exercises_Each 15 Mins PT_Therapeutic Exercises_Each 15 Mins PT_Electrical Stimulation PT_Therapeutic Exercises_Each 15 Mins PT_Therapeutic Exercises_Each 15 Mins PT_Therapeutic Exercises_Each 15 Mins PT_Therapeutic Exercises_Each 15 Mins PT_EVALUATION NP_Office Visit Level 3 MD_Follow Up Level 4 Lab_Drug Screen MD_Follow Up Level 4 Inj_Spinal Cord Stimulator Fluroscopic Guidance MD_Follow Up Level 4 Lab_Drug Screen Facility_Inj_Electrode_Each Facility_Inj_Spinal Cord Stimulator MD_Follow Up Level 4 Lab_Drug Screen BH_Intervention_15 Min Each MD_Follow Up Level 5 Inj_Transforaminal_Lumbar Inj_Transforaminal_Lumbar Add'l Levels N Facility_Inj_Transforaminal_Lumbar Facility_Inj_Tranforaminal Add'l Levels MD_Follow Up Level 4 Lab_Drug Screen Inj_Transforaminal_Lumbar Inj_Transforaminal_Lumbar Add'l Levels O Facility_Inj_Transforaminal_Lumbar Facility_Inj_Tranforaminal Add'l Levels MD_Follow Up Level 4 Lab_Drug Screen TP_Inj_Trigger Point Rad_Ultrasound Guidance For Needle Place ment EMG_Each Extremity Complete Study EMG_Motor Nerve_with F Wave EMG_Sensory Nerve EMG_H-Relfex Inj_Facet_Lumbar Inj_Facet_Lumbar_2nd Level Inj_Facet_Lumbar_3rd Level Facility_Inj_Facet_Lumbar Facility_Inj_Tranforaminal Add'l Levels Facility_Inj_Facet_Lumbar_3rd Level MD_Follow Up Level 4 Lab_Drug Screen BH_Intervention_15 Min Each Voided Encounter Beh_Intervention Lab_Drug Screen Each MD_Follow Up Level 5 Lab_Drug Screen MD_Follow Up Level 4 PT_PPM Lab_Drug Screen NP_Office Visit Level 5 Advance Directives Directive Yes / No Effective Date File Name No Information Encounters Encounter Description Practice Location Reason(s) For Visit Diagnoses Date Provider [facility], [address] [place] [address], [address] [place] [address], tel:[phone] [facility] No Information 8 Yesenia Mtz. [address] [place] [address], [place], [place], [id number], . tel:[phone] MD_Follow Up Level 4 [facility], [address] [place] [address], [id number], tel:[phone] [facility] leg pain (chief complaint) back pain (chief complaint) No Information 4 David Berumen. [address] [place] [address], [facility], . tel:[phone] [facility], [address] [place] [address], [id number], tel:[phone] [facility] No Information 4 Sasha Garcia. [address] [place] [address], [facility], . tel:[phone] MD_Follow Up Level 4 [facility], [address] [place] [address], [address] [place] [address], [place] tel:[phone] [facility] back pain (chief complaint) leg pain (chief complaint) No Information January-2 2- 4 David Berumen. [address] [place] [address], [facility], . tel:[phone] [facility], [address] [place] [address], [place], [place], [id number], tel:[phone] [facility] No Information January-2 2- 4 Sasha Garcia. [address] [place] [address], [facility], [place]. tel:[phone] MD_Follow Up Level 4 [facility], [address] [place] [address], [place], [place], [id number], [place] tel:[phone] [facility] back pain (chief complaint) leg pain (chief complaint) No Information January- 4 David Berumen. [address] [place] [address], [facility], . tel:[phone] [facility], [address] [place] [address], [place], [place], [id number], tel:[phone] [facility] No Information January- 4 Sasha Garcia. [address] [place] [address], [id number], [place]. tel:[phone] MD_Follow Up Level 4 [facility], [address] [place] [address], [place], [place], [id number], [place] tel:[phone] [facility] back pain (chief complaint) leg pain (chief complaint) No Information January-0 4 David Berumen. [address] [place] [address], [address], [place]. tel:[phone] [facility], [address] [place] [address], [place], [place], [id number], [place] tel:[phone] [facility] No Information January-0 8-201 4 Sasha Garcia. [address] [place] [address], [id number], . tel:[phone] [facility], [address] [place] [address], [place], [place], [id number], tel:[phone] [facility] No Information May-0 8-201 4 Sasha Garcia. [address] [place] [address], [address], [place]. tel:[phone] MD_Follow Up Level 4 [facility], [address] [place] [address], [place], [place], [id number], [place] tel:[phone] [facility] back pain (chief complaint) leg pain (chief complaint) No Information 4 Maguishannan Carlisleine. [address] [place] [address], [address], [place]. tel:[phone] [facility], [address] [place] [address], [place], [place], [id number], [place] tel:[phone] [facility] No Information 4 Sasha Garcia. [address] [place] [address], [address], [place]. tel:[phone] MD_Follow Up Level 4 [facility], [address] [place] [address], [place], [place], [id number], [place] tel:[phone] [facility] back pain (chief complaint) leg pain (chief complaint) No Information 4 David Jamaica. [address] [place] [address], [address], [place]. tel:[phone] [facility], [address] [place] [address], [place], [place], [id number], [place] tel:[phone] [facility] No Information 4 Sasha Garcia. [address] [place] [address], [address], [place]. tel:[phone] [facility], [address] [place] [address], [place], [place], [id number], [place] tel:[phone] [facility] No Information 4 Jono Rebollar. [address] [place] [address], [id number], [place]. tel:[phone] [facility], [address] [place] [address], [place], [place], [id number], [place] tel:[phone] [facility] No Information 4 Sasha Garcia. [address] [place] [address], [address], [place]. tel:[phone] MD_Follow Up Level 4 [facility], [address] [place] [address], [place], [place], [id number], [place] tel:[phone] [facility] leg pain (chief complaint) back pain (chief complaint) No Information 4 Jono Rebollar. [address] [place] [address], [place], [id number], [place]. tel:[phone] MD_Follow Up Level 4 [facility], [address] [place] [address], [place], [place], [id number], [place] tel:[phone] [facility] back pain (chief complaint) leg pain (chief complaint) knee pain (chief complaint) No Information 4 Jono Rebollar. [address] [place] [address], [id number], [place]. tel:[phone] MD_Follow Up Level 4 [facility], [address] [place] [address], [place], [place], [id number], [place] tel:[phone] [facility] back pain (chief complaint) leg pain (chief complaint) knee pain (chief complaint) No Information 4 Marek Chauhan. [address] [place] [address], [address], [place]. tel:[phone] [facility], [address] [place] [address], [place], [place], [id number], [place] tel:[phone] [facility] No Information 4 Sasha Garcia. [address] [place] [address], [address], [place]. tel:[phone] MD_Follow Up Level 4 [facility], [address] [place] [address], [place], [place], [id number], [place] tel:[phone] [facility] back pain (chief complaint) leg pain (chief complaint) No Information 4 Marek Chauhan. [address] [place] [address], [address], [place]. tel:[phone] MD_Follow Up Level 4 [facility], [address] [place] [address], [place], [place], [id number], [place] tel:[phone] [facility] back pain (chief complaint) hip pain (chief complaint) knee pain (chief complaint) No Information 4 Scottlydia Tien. [address] [place] [address], [address], [place]. tel:[phone] MD_Follow Up Level 4 [facility], [address] [place] [address], [place], [place], [id number], tel:[phone] [facility] back pain (chief complaint) knee pain (chief complaint) hip pain (chief complaint) No Information 4 Marek Chauhan. [address] [place] [address], [address], [place]. tel:[phone] MD_Follow Up Level 4 [facility], [address] [place] [address], [place], [place], [id number], [place] tel:[phone] [facility] back pain (chief complaint) hip pain (chief complaint) leg pain (chief complaint) No Information 4 David Berumen. [address] [place] [address], [facility], [place]. tel:[phone] MD_Follow Up Level 4 [facility], [address] [place] [address], [place], [place], [id number], [place] tel:[phone] [facility] back pain (chief complaint) knee pain (chief complaint) hip pain (chief complaint) No Information 4 Roland Brice. [address] [facility], [address], [place], [place], [id number], . tel:[phone] [facility], [address] [place] [address], [place], [place], [id number], [place] tel:[phone] [facility] No Information 3 Sasha Garcia. [address] [place] [address], [address], [place]. tel:[phone] MD_Follow Up Level 4 [facility], [address] [place] [address], [id number], [place] tel:[phone] [facility] back pain (chief complaint) leg pain (chief complaint) knee pain (chief complaint) No Information 3 Jono Stringer Jane. [address] [place] [address], [id number], [place]. tel:[phone] MD_Follow Up Level 4 [facility], [address] [place] [address], [place], [place], [id number], [place] tel:[phone] [facility] back pain (chief complaint) No Information 0 4 3 Jono Rebollar. [address] [place] [address], [id number], [place]. tel:[phone] [facility], [address] [place] [address], [place], [place], [id number], [place] tel:[phone] [facility] No Information Nov0 3 Sasha Garcia. [address] [place] [address], [address], [place]. tel:[phone] MD_Follow Up Level 4 [facility], [address] [place] [address], [place], [place], [id number], [place] tel:[phone] [facility] back pain (chief complaint) leg pain (chief complaint) No Information Jun-0 1 3 Jono Rebollar. [address] [place] [address], [id number], [place]. tel:[phone] MD_Follow Up Level 4 [facility], [address] [place] [address], [place], [place], [id number], [place] tel:[phone] [facility] back pain (chief complaint) No Information Sep-0 5 3 Jono Rebollar. [address] [place] [address], [id number], [place]. tel:[phone] MD_Follow Up Level 4 [facility], [address] [place] [address], [place], [place], [id number], [place] tel:[phone] [facility] back pain (chief complaint) No Information Aug-0 6 3 Jono Rebollar. [address] [place] [address], [id number], [place]. tel:[phone] MD_Follow Up Level 4 [facility], [address] [place] [address], [place], [place], [id number], [place] tel:[phone] [facility] leg pain (chief complaint) No Information Mar-0 3 David Berumen. [address] [place] [address], [address], . tel:[phone] MD_Follow Up Level 4 [facility], [address] [place] [address], [place], [place], [id number], tel:[phone] [facility] back pain (chief complaint) leg pain (chief complaint) knee pain (chief complaint) No Information 0 3 David Berumen. [address] [place] [address], [facility], [place]. tel:[phone] [facility], [address] [place] [address], [place], [place], [id number], [place] tel:[phone] [facility] No Information 3 Sasha Garcia. [address] [place] [address], [address], [place]. tel:[phone] MD_Follow Up Level 4 [facility], [address] [place] [address], [place], [place], [id number], [place] tel:[phone] [facility] back pain (chief complaint) leg pain (chief complaint) knee pain (chief complaint) No Information January-0 3 David Berumen. [address] [place] [address], [address], [place]. tel:[phone] MD_Follow Up Level 4 [facility], [address] [place] [address], [place], [place], [id number], [place] tel:[phone] [facility] back pain (chief complaint) leg pain (chief complaint) No Information Dec-0 3 De La Cruz CorrineAustin. [address] [place] [address], [id number], [place]. tel:[phone] MD_Follow Up Level 4 [facility], [address] [place] [address], [place], [place], [id number], [place] tel:[phone] [facility] back pain (chief complaint) No Information Nov-0 3 David Berumen. [address] [place] [address], [address], [place]. tel:[phone] [facility], [address] [place] [address], [place], [place], [id number], [place] tel:[phone] [facility] B knee pain (chief complaint) No Information 3 Heriberto Maurer. [address] [place] [address], [place], [id number], [place]. tel:[phone] MD_Follow Up Level 4 [facility], [address] [place] [address], [place], [place], [id number], [place] tel:[phone] [facility] back pain (chief complaint) No Information 3 Jono Rebollar. [address] [place] [address], [place], [place], [id number], [place]. tel:[phone] [facility], [address] [place] [address], [place], [place], [id number], [place] tel:[phone] [facility] B knee pain (chief complaint) Lumbosacral spondylosis without myelopathy 3 Heriberto Maurer. [address] [place] [address], [id number], [place]. tel:[phone] [facility], [address] [place] [address], [place], [place], [id number], [place] tel:[phone] [facility] knee pain (chief complaint) No Information 3 Heriberto Maurer. [address] [place] [address], [id number], [place]. tel:[phone] [facility], [address] [place] [address], [place], [place], [id number], [place] tel:[phone] [facility] B knee pain (chief complaint) No Information 3 Heriberto Maurer. [address], [place], [id number], [place]. tel:[phone] [facility], [address] [place] [address], [place], [place], [id number], [place] tel:[phone] [facility] B knee pain (chief complaint) No Information 3 Heriberto Maurer. [address], [place], [id number], [place]. tel:[phone] [facility], [address] [place] [address], [place], [place], [id number], [place] tel:[phone] [facility] B knee pain (chief complaint) No Information 3 Heriberto Amy. [address] [place] [address], [id number], [place]. tel:[phone] NP_Office Visit Level 3 [facility], [address] [place] [address], [place], [place], [id number], [place] tel:[phone] [facility] Postlaminectomy syndrome of thoracic regionLumbosacral spondylosis without myelopathy 3 Nadia Graham. [address] [place] [address], [id number], [place]. tel:[phone] MD_Follow Up Level 4 [facility], [address] [place] [address], [place], [place], [id number], [place] tel:[phone] [facility] back pain (chief complaint) No Information 3 De La Cruz Jared Siomara Rebollar. [address] [place] [address], [id number], [place]. tel:[phone] MD_Follow Up Level 4 [facility], [address] [place] [address], [place], [place], [id number], [place] tel:[phone] [facility] back pain (chief complaint) leg pain (chief complaint) Radiculitis, Thoracic or Lumbar 2 Yesenia Mtz. [address] [place] [address], [address] [place] [address], [place], [place], [id number], [place]. tel:[phone] [facility], [address] [place] [address], [place], [place], [id number], [place] tel:[phone] [facility] Postlaminectomy syndrome of lumbar region 2 Yesenia Mtz. [address] [place] [address], [address] [place] [address], [place], [place], [id number], [place]. tel:[phone] MD_Follow Up Level 4 [facility], [address] [place] [address], [place], [place], [id number], [place] tel:[phone] [facility] back pain (chief complaint) leg pain (chief complaint) Obesity 2 Jono Coleman Siomara Rebollar. [address] [place] [address], [id number], [place]. tel:[phone] [facility], [address] [place] [address], [place], [place], [id number], [place] tel:[phone] [facility] No Information 2 [facility]. [address] [place] [address], [id number], [place]. tel:[phone] MD_Follow Up Level 4 [facility], [address] [place] [address], [place], [place], [id number], [place] tel:[phone] [facility] knee pain (chief complaint) No Information 2 Jono Rebollar. [address] [place] [address], [id number], [place]. tel:[phone] [facility], [address] [place] [address], [place], [place], [id number], [place] tel:[phone] [facility] No Information 2 Víctor Stacy. [address] [place] [address], [id number], [place]. tel:[phone] MD_Follow Up Level 5 [facility], [address] [place] [address], [place], [place], [id number], [place] tel:[phone] [facility] back pain (chief complaint) leg pain (chief complaint) Radiculitis, Thoracic or LumbarPostlaminectomy syndrome of thoracic region 2 Yesenia Smith. [address] [place] [address], [address] [place] [address], [place], [place], [id number], [place]. tel:[phone] [facility], [address] [place] [address], [place], [place], [id number], [place] tel:[phone] [facility] No Information 2 Yesenia Smith. [address] [place] [address], [place], [place], [id number], [place]. tel:[phone] [facility], [address] [place] [address], [place], [place], [id number], [place] tel:[phone] [facility] No Information 2 [facility]. [address] [place] [address], [id number], [place]. tel:[phone] MD_Follow Up Level 4 [facility], [address] [place] [address], [place], [place], [id number], [place] tel:[phone] [facility] back pain (chief complaint) No Information 6 2 Kristofer Ely. [address] [place] [address], [id number], [place]. tel:[phone] [facility], [address] [place] [address], [place], [place], [id number], [place] tel:[phone] [facility] No Information 2 Yesenia Mtz. [address] [place] [address], [address] [place] [address], [place], [place], [id number], [place]. tel:[phone] [facility], [address] [place] [address], [place], [place], [id number], [place] tel:[phone] [facility] No Information 2 Surgery [facility]. [address] [place] [address], [id number], [place]. tel:[phone] MD_Follow Up Level 4 [facility], [address] [place] [address], [place], [place], [id number], [place] tel:[phone] [facility] back pain (chief complaint) leg pain (chief complaint) No Information 2 Jono Rebollar. [address] [place] [address], [id number], [place]. tel:[phone] [facility], [address] [place] [address], [place], [place], [id number], [place] tel:[phone] [facility] back pain (chief complaint) leg pain (chief complaint) No Information 2 2 Nadia Graham. [address] [place] [address], [id number], [place]. tel:[phone] [facility], [address] [place] [address], [place], [place], [id number], [place] tel:[phone] [facility] back pain (chief complaint) No Information Jun- 0 2 Nadia Graham. [address] [place] [address], [id number], [place]. tel:[phone] [facility], [address] [place], [place] [address], [place], [place], [id number], [place] tel:[phone] [facility] No Information 2 Flor Wolf. [address] [place] [address], [address] [place] [address], [place], [place], [id number], [place]. tel:[phone] [facility], [address] [place] [address], [place], [place], [id number], [place] tel:[phone] [facility] No Information 2 Surgery [facility]. [address] [place] [address], [id number], [place]. tel:[phone] MD_Follow Up Level 4 [facility], [address] [place] [address], [place], [place], [id number], [place] tel:[phone] [facility] back pain (chief complaint) No Information 2 Jono Rebollar. [address] [place] [address], [id number], [place]. tel:[phone] [facility], [address] [place] [address], [place], [place], [id number], [place] tel:[phone] [facility] No Information 2 Víctor Stacy. [address] [place] [address], [id number], [place]. tel:[phone] [facility], [address] [place] [address], [place], [place], [id number], [place] tel:[phone] [facility] No Information 2 Jesús Travis. [address] [place] [address], [address] [place] [address], [place], [place], [id number], [place]. tel:[phone] [facility], [address] [place] [address], [place], [place], [id number], [place] tel:[phone] [facility] back pain (chief complaint) Adjustment disorder with mixed anxiety and depressed mood 2 Víctor Stacy. [address] [place] [address], [id number], [place]. tel:[phone] MD_Follow Up Level 5 [facility], [address] [place] [address], [place], [place], [id number], tel:[phone] [facility] No Information 2 Jono Rebollar. [address] [place] [address], [id number], . tel:[phone] MD_Follow Up Level 4 [facility], [address] [place] [address], [place], [place], [id number], tel:[phone] [facility] back pain (chief complaint) leg pain (chief complaint) Radiculitis, Thoracic or LumbarPostlaminectomy syndrome of thoracic region 2 Yesenia Mtz. [address] [place] [address], [place], [place], [id number], . tel:[phone] [facility], [address] [place] [address], [place], [place], [id number], tel:[phone] [facility] back pain (chief complaint) leg pain (chief complaint) CHRONIC PAIN SYNDROMEPostlaminectomy syndrome of thoracic regionLumbosacral spondylosis without myelopathy 2 Nadia Graham. [address] [place] [address], [id number], . tel:[phone] NP_Office Visit Level 5 [facility], [address] [place] [address], [place], [place], [id number], tel:[phone] [facility] Opioid type dependence, continuous useTherapeutic Drug MonitoringSciatica Due To Displacement Of Lumbar DiscLumbosacral spondylosis without myelopathyRadiculitis, Thoracic or LumbarPostlaminectomy syndrome of thoracic regionMyalgia and myositis, unspecifiedCHRONIC PAIN SYNDROME 2 Jesús Rboles. [address] [place] [address], [place], [place], [id number], . tel:[phone] Family History Family Member Type Diagnosis Age At Onset Problem (finding) Family history of migra ine Problem (finding) Family history of Diabe david mellitus Problem (finding) Family history of High Blood Pressure Problem (finding) Family history of Heart Disease Problem (finding) Family history of asthm a Payers Payer name Insurance type Covered green party ID Authorjesicaa tidonn(s) [id number] Social History Type Description Quantity Date Captured Comments Alcohol Use Details Unknown Caffeine Use Details Unknown Tobacco Use Status Smoking Status No Information Sex Male Chief Complaint And Reason For Visit No Information Plan Of Treatment Date Type Action Status Goal Tobacco cessation counseling completed Goal Tobacco cessation counseling completed Goal Tobacco cessation counseling completed Goal Tobacco cessation counseling completed Goal Tobacco cessation counseling completed Goal Tobacco cessation counseling completed Goal Tobacco cessation counseling completed Goal Tobacco cessation counseling completed Goal Tobacco cessation counseling completed Goal Tobacco cessation counseling completed Goal Tobacco cessation counseling completed Goal Tobacco cessation counseling completed Goal Tobacco cessation counseling completed Goal Tobacco cessation counseling completed Goal Tobacco cessation counseling completed Goal Tobacco cessation counseling completed Goal Tobacco cessation counseling completed Goal Tobacco cessation counseling completed Goal Tobacco cessation counseling completed Goal Tobacco cessation counseling completed Goal Tobacco cessation counseling completed Goal Tobacco cessation counseling completed Goal Tobacco cessation counseling completed Goal Tobacco cessation counseling completed Goal Tobacco cessation counseling completed Goal Tobacco cessation counseling completed Goal Tobacco cessation counseling completed Goal Tobacco cessation counseling completed Goal Tobacco cessation counseling completed History Of Present Illness Encounter Date Complaint History Of Prese nt Illness No Information Instructions Date Instruction Additional Infor mation Dietary counseling Related to Ob esity unspecified, BMI 30-39 Assessments Type Assessment Date No Information
--- OUTSIDE RECORDS SUMMARY | 2024-06-02 04:00 | XMS_ITS ---
Author Organization [facility] Address [address] [place] [address] Care Team Providers Care Visual Manager Name Role Phone Dinora Cardona Primary Care Provider Rupa Redd Unavailable [phone] Rao De Anda [phone] Encounters Encounter Location Date Provider Diagnosis [facility] [address] [place] [address] 06/02/2024 Rao De Anda Plan Of Treatment No Information Progress Notes * Andrae DUNBAR GDOB: [birth year] (65 yo M)Acc No.[id number]:06/02/2024 Progress Note Patient: Andrae COLIN Provider: Wesley De Anda DPM :1960 A ge:64 Y S ex:Male Date:06/02/2024 Address:[address] [place], [place] [id number] Pcp:Dinora Cardona Subjective: * Chief Complaints: * [...] 0 06/02/2024 Generated for Chintan calhoun/Jodie/eTransmitting on: 05/11/2025 03:12 PM EDT
--- OUTSIDE RECORDS SUMMARY | 2024-12-27 12:00 | XMS_ITS ---
Author Organization [facility] Address [address] [place] [address] Care Team Providers Care Occupational Health Manager Name Role Phone Dinora Cardona Primary Care Provider Rupa Redd [phone] REASON FOR VISIT Cx w/reminder call Encounters Encounter Location Date Provider Diagnosis [facility] [address] [place] [phone] 12/27/2024 Rupa Okeefe Plan Of Treatment No Information Progress Notes * EZE Andrae GDOB: 8 (65 yo M)Acc No.[id number]:12/27/2024 Progress Note Patient: Andrae COLIN Provider: Tennille Okeefe DPM :1960 A ge:64 Y S ex:Male Date:12/27/2024 Address:[address] [place], [place] [phone] Pcp:Dinora Cardona Subjective: * Chief Complaints: * [...] DPM Date: 0 12/27/2024 Generated for Chintan ng/Faxing/eTransmitting on: 0 05/11/2025 03:12 PM EDT
[2025-05-11 15:00] VITALS: BP 124/60; PULSE 60; O2SAT 95; BMI 24.2
--- NOTE | 2025-05-11 15:00 | MHC.OFFVIS ---
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 Patient states has noticed Snoring/apnea/gasping. At times daytime sleepiness. No hx of sleep studies. Goes to bed around 10-11pm wakes up at 6-7am. Takes napes occasionally 30min to hour. Accompanied by: Self / Same As Patient Allergies No Known Allergies Allergy (Verified 05/11/25 15:06) HPI Comments Details: 65 year old male referred to us for evaluation of sleep apnea by Dr Toro his PCP. His c/o him making weird sounds like a wheezing and snoring sound. He gasps for air according to his she has to nudge him. He goes to bed about 10pm and wakes up at 6-7am with 1-2x bathroom breaks, he has BPH, psa are in normal range. He is a smoker <10 cigarettes per day, and occasionally will have MJ. 2-3x per week. He denies morning headaches. BP is well managed. He has copd and emphysema. He is chronically fatigued and will take naps as opportunities present daily for 1.0 hour to 1.5 hour. Memory and mood are stable. Diet is good he is trying to avoid sugars. Avoids alcohol. [facility] Medical History Coronary artery calcification seen on CAT scan COVID-19 vaccine series completed On beta chuck at home HTN (hypertension) Dilation of aorta Personal history of nicotine dependence Dyspnea on exertion Renal cyst HLD (hyperlipidemia) Resistant hypertension Surgical History History of hand surgery Presence of tooth-root and mandibular implants (~2020) History of esophagogastroduodenoscopy (EGD) (~2011) History of colonoscopy (~2011) History of vasectomy (~1991) Family History Father COPD (chronic obstructive pulmonary disease) Mother Heart disease Thyroid cancer Social History Are you a primary care director rn to a significant other at home: No Do you presently have visiting nurse or other home services: No Alcohol intake: current Alcohol intake frequency: holidays/special occasions only Patient Tobacco Use Status: Never used Tobacco Tobacco use type: Cigarette Years Smoked: 25 +/- Substance Use Type: Marijuana Current occupational status: employed 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 Current occupational exposures/hazards: No Physical Exam Vital Signs: Last Vital Signs Pulse 60 05/11/25 15:00 BP 124/60 05/11/25 15:00 Pulse Ox 95 05/11/25 15:00 Oxygen Delivery Method Room Air 05/11/25 15:00 BMI result Body Mass Index 24.2 Const General: cooperative, comfortable and no acute distress Nutritional Appearance: average body habitus Orientation/consciousness: patient oriented x3 HEENT Face and sinus: Yes normal facial exam Teeth and gingiva: other (mallampti 3) Eyes Pupils: Equal, round and reactive pupils present Neck Neck: Yes full ROM Resp Effort & Inspection: normal respiratory effort and able to speak in complete sentences Neuro General: patient oriented x3 and moves all extremities Cranial nerves: Yes Facial sensation intact/muscles of mastication intact, Yes Equal, round and reactive pupils present, Yes Normal accommodation reflex present, Yes Normal facial strength present, Yes Midline tongue present, Yes Ability to bilaterally rotate head present and Yes Ability to bilaterally elevate shoulders present Cognition (Neuro): normal cognition Gait exam (Neuro): Normal gait present Psych Appearance: grossly normal Thought process: Normal thought process present Thought content: Normal thought content present Assessment & Plan Assessment & Plan (1) Excessive daytime sleepiness: Code(s): G47.19 - Other hypersomnia Category: Medical Plan HST/ r/o kendall Labs r/o deficiencies F/U in 3 months call home phone Orders: Orders Complete Blood Count no Diff Today G47.19 - Other hypersomnia Methylmalonic Acid Today G47.19 - Other hypersomnia, G47.9 - Sleep disorder, unspecified, R53.83 - Other fatigue Vitamin D 25-OH Total Today G47.19 - Other hypersomnia TSH reflex Free T4 Today G47.19 - Other hypersomnia Vitamin B1 Today G47.19 - Other hypersomnia RT home sleep study Today G47.19 - Other hypersomnia Comprehensive Met. Panel Today G47.19 - Other hypersomnia Ferritin Today G47.19 - Other hypersomnia Homocysteine Today G47.19 - Other hypersomnia, G47.9 - Sleep disorder, unspecified, R53.83 - Other fatigue Vitamin B6 Today G47.19 - Other hypersomnia Vitamin B12 and Folate Today G47.19 - Other hypersomnia Patient Instructions: Sleep Hygiene provided: set a scheduled bedtime and wake time to help regulate the circadian rhythm and balance the release of pituitary hormones. Sleep in a dark room, temperatures below 68 degrees, and no devices n bed. Limit caffeinated products 6 hours prior to bed, and limit fluids 2-4 hours prior to bed. Gentle night yoga, diffusing essential oils, and playing soft music can be relaxing. Coding Level of Care Code New Pt Level 4 (08199) Diagnoses Excessive daytime sleepiness G47.19 Sleep Questionnaire Difficulty falling asleep: Yes Difficulty staying asleep?: Yes Number of arousals: 2-3 Snoring: Yes Witnessed apneas: Yes Gasping arousals: Yes Nocturia: Yes GERD: No Vivid dreams: Yes Acting out dreams: No Abnormal behavior in sleep: No Abnormal movements in sleep: No Morning headaches: No Excessive daytime sleepiness: Yes Daytime naps: Yes Restless legs: No Hallucinations: No Sleep paralysis: No Drop attacks: No Sleep Study: No CPAP: No
--- OUTSIDE RECORDS SUMMARY | 2025-05-11 15:12 | XMS_ITS | Encounter Summary ---
Author Organization [facility], Address [address] [place] [address] Phone Care Team Providers Care Cable Respooler Name Role Phone Dinora Cardona MD Primary Care Provider [phone] Reason for Visit * Reason Comments Med Refill Encounter Details Date Type Department Care Team (Late st Contact Info) Description 05/25/2024 Refill [facility], [address] [place] [phone] Yahir Gilliland MD [address] [place] [phone] Social History Tobacco Use Types Packs/Day Years Used Date Smoking Tobacco: Former Sex and Gender Information Value Date Recorded Sex Assigned at Male 01/04/2021 12:47 PM EDT Legal Sex Male 5:20 PM EST Gender Identity Male 01/04/2021 12:47 PM EDT Sexual Orientation Not on file documented as of this encounter Plan of Treatment Not on file documented as of this encounter Visit Diagnoses Not on filedocumented in this encounter Care Teams Cable Respooler Relationship Specialty Start Date End Date Dinora Cardona MD [address] [place] [id number] PCP - General Family Medicine 01/03/21 documented as of this encounter
--- OUTSIDE RECORDS SUMMARY | 2025-05-11 15:12 | XMS_ITS | Encounter Summary ---
Author Organization [employer] Address [address] [facility] [address] [place] [address] Care Team Providers Care Family Partner Name Role Phone Dinora Cardona MD Primary Care Provider [phone] Encounter Details Date Type Department Care Team (Late st Contact Info) Description 01/06/2024 Orders Only [facility] [address] [place] [address] Provider, MD Nilson Social History Tobacco Use Types Packs/Day Years Used Date Smoking Tobacco: Every Day Cigarettes Smokeless Tobacco: Former Depression Answer Date Recorded Patient Health Questionnaire-9 Score 0 05/25/2023 Housing Stability Answer Date Recorded What is your housing situation today? I have guslfety childers 06/30/[address] you [...] on file documented as of this encounter Procedures Procedure [...] documented as of this encounter Care Teams Family Partner Relationship Specialty Start Date End Date Dinora Cardona MD [address] [place] [id number] PCP - General Family Medicine 08/26/12 documented as of this encounter
--- OUTSIDE RECORDS SUMMARY | 2025-05-11 15:12 | XMS_ITS | Encounter Summary ---
Author Organization [email or web address] Address [address] [facility] [address] [place] [address] Care Team Providers Care Web Services Architect Name Role Phone Dinora Cardona MD Primary Care Provider [phone] Encounter Details Date Type Department Care Team ([facility] st Contact Info) Description 12/29/2023 Orders Only [facility] [address] [place], [place] [phone] Dinora Cardona MD [address] [place], [place] [phone] Social History Tobacco Use Types Packs/Day Years [...] documented as of this encounter Care Teams Web Services Architect Relationship Specialty Start Date End Date Dinora Cardona MD [address] [place] [address] PCP - General Family Medicine 08/26/12 documented as of this encounter
--- OUTSIDE RECORDS SUMMARY | 2025-05-11 15:12 | XMS_ITS | Clinical Summary ---
Author Organization [facility], Address [address] [place] [address] Phone Care Team Providers Care Mason Foreman/Superintendant Name Role Phone Dinora Cardona MD Primary Care Provider [phone] Allergies No known active allergies Medications amLODIPine (NORVASC) 10 MG tablet Take 10 mg by mouth 1 (one) time each day Active atorvastatin (LIPITOR) 40 MG tablet Take 40 mg by mouth 1 (one) time each day Active cloNIDine (CATAPRES) 0.1 MG tablet Take 0.1 mg by mouth 2 (two) times a day Active hydrALAZINE (APRESOLINE) 25 MG tablet Take 25 mg by mouth 3 (three) times a day Active hydroCHLOROthia zide (HYDRODIURIL) 25 MG tablet Take 25 mg by mouth 1 (one) time each day Active metoprolol tartrate (LOPRESSOR) 100 MG tablet Take 100 mg by mouth 2 (two) times a day Active tamsulosin (FLOMAX) 0.4 MG 24 hr capsule Take 1 capsule (0.4 mg total) by mouth 1 (one) time each day 90 capsule 3 01/09/2023 Active lisinopril 40 MG tablet Take 1 tablet (40 mg total) by mouth 1 (one) time each day 90 tablet 3 11/13/2023 Active Active Problems Problem Noted Date Diagnosed Date Hypertension 01/17/2021 Multiple acquired kidney cysts 01/17/2021 Hypercholesterolemia 02/20/2014 Adenomatous polyp of colon 02/20/2014 Resolved Problems Problem Noted Date Diagnosed Date Resolved Date Dyspnea 01/17/2021 01/17/2021 Family History Medical History Relation Comments Heart disease Mother Relation Status Comments Father Mother Social History Tobacco Use Types Packs/Day Years Used Date Smoking Tobacco: Former Sex and Gender Information Value Date Recorded Sex Assigned at Male 01/04/2021 12:47 PM EDT Legal Sex Male 5:20 PM EST Gender Identity Male 01/04/2021 12:47 PM EDT Sexual Orientation Not on file Last Filed Vital Signs Vital Sign Reading Time Taken Comments Blood Pressure 112/52 07/30/2021 2:33 PM EST Pulse - - Temperature - - Respiratory Rate - - Oxygen Saturation - - Inhaled Oxygen Concentration - - Weight - - Height - - Body Mass Index - - Plan of Treatment Health Maintenance Due Date Last Done Comments Colorectal Cancer Screening: Annual FOBT 2007 Colorectal Cancer Screening: Colonoscopy 2007 Colorectal Cancer Screening: Sigmoidoscopy 2007 Pneumococcal Vaccine: 50+ Years (2 of 2 - PCV) 05/22/2024 05/22/2023 Influenza Vaccine (#1) 2025 3, 05/21/2022, 06/06/2021, Additional history exists Pneumococcal Vaccine: Peds (0 to 5 Years) and At-Risk Patients (6 to 49 Years) Discontinued 05/22/2023 Hepatitis B Vaccine Aged Out No longe r eligible based on patient's age to complete this topic Insurance [facility] ([id number]) [place] [id number] Advance Directives Healthcare Agents on File Name Relationship Healthcare Agent Relationshi p Communication Carey Dunbar Spouse First Alternate Health Care Agent Care Teams Mason Foreman/Superintendant Relationship Specialty Start Date End Date Dinora Cardona MD [address] [place] [address] PCP - General Family Medicine 01/03/21
--- OUTSIDE RECORDS SUMMARY | 2025-05-11 15:12 | XMS_ITS | Patient Health Record ---
Author Organization [facility] Address [address] [place] [address] Care Team Providers Care Tugboat Pilot Name Role Phone Dinora Cardona Primary Care Provider Rupa Redd Unavailable [phone] Rao De Anda Unavailable [phone] Allergies No Known Allergies Reason For Referral [...] 3 Pair custom heat molded innersoles Wear Daily; Duration: 365 days Active Caduet 10-10 MG 1 [...] a day Active Metoprolol-HCTZ ER A ctive [place] 3 1000 MG 1 capsule Orally [...] 06/21/2024 Encounters Encounter Location Date Provider Diagnosis [facility] [address] 06/21/2024 Rao De Anda Tinea unguium B35.1 ; Pain in right toe(s) M79.674 and Pain in left toe(s) M79.[address] [facility] [address] 05/31/[address] [address] 12/15/2024 Rupa Okeefe Assessments Encounter Date Diagnosis [...] Insured Coverage Start Date Coverage End Date [facility] [employer] Claims [address] [place] [id number] Andrae Dunbar Self - patient is the insured Medical (General) History Medical History History ICD Code Arthritis CAD (Cholesterol) High blood pressure Measles Mumps Chicken pox Surgical History Surgery Date(Month/Year) Hospitalization History Reason Date(Month/Year) [facility]- stroke symptoms 09/2023
--- OUTSIDE RECORDS SUMMARY | 2025-05-11 15:12 | XMS_ITS | Clinical Summary ---
Author Organization [address] [facility] Building Address [address] [place] [address] Phone Care Team Providers Care Senior Telecommunications Technician Name Role Phone Dinora Cardona MD Primary Care Provider [phone] Allergies No known active allergies Medications metoprolol [...] Active Active Problems No known active problems Family History Medical History Relation Name Comments [...] 52 01/02/2025 9:46 AM EDT Temperature 36.3 C (97.3 F) 01/02/2025 9:46 AM EDT Respiratory Rate - - Oxygen Saturation 98% 01/02/2025 9:46 AM EDT Inhaled Oxygen Concentration - - Weight - - Height - - Body Mass Index - - Plan of Treatment Upcoming Encounters Date Type Department Care Team (Late st Contact Info) Description 06/14/2025 2:45 PM EDT Consult Orthopedic Surgery - [address] [address] Ross Delacruz, DIANA [address] [place] [phone] Health Maintenance Due Date Last Done Comments COVID-19 Vaccine ( season) 2024 02/01/2024, 05/21/2022, 12/31/2021, Additional history exists Pneumococcal Vaccine: 50+ Years (2 of 2 - PCV) 05/22/2024 05/22/2023 Depression Screening 09/14/2024 Abdominal Aortic Aneurysm (AAA) Screen 01/02/2025 Colorectal Cancer Screening: Colonoscopy 01/02/2025 Falls Risk Assessment 01/02/2025 Hepatitis C Screening 01/02/2025 Social Influencers of Health Screening 01/02/2025 Influenza Vaccine (#1) 2025 , 02/13/2024, 05/21/2023, Additional history exists Hypertension/CHF/CAD Annual BMP Blood Test 02/21/2026 02/21/2025 Cholesterol Screening (Lipid Panel) 02/21/2030 02/21/2025, 08/15/2024 DTaP,Tdap,and Td Vaccines (4 - Td or Tdap) 05/25/2033 05/25/2023, 04/28/2017, 08/18/2006 Zoster Vaccines Completed 02/08/2021, 11/16/2019 RSV Immunization Adult Patients Completed 05/25/2023 HIB Vaccines Aged Out No longer eligi [...] patient's age to complete this topic Insurance [facility] Care Teams Senior Telecommunications Technician Relationship Specialty Start Date End Date Dinora Cardona MD [address] [place] [address] PCP - General 04/25/14
--- OUTSIDE RECORDS SUMMARY | 2025-05-11 15:12 | XMS_ITS | Encounter Summary ---
Author Organization [employer] Address [address] [place] [address] [address] [place] [address] Care Team Providers Care Fuse Assembler Name Role Phone Dinora Cardona MD Primary Care Provider [phone] Reason for Visit * Reason Onset Date Comments Med Refill 03/15/2025 Encounter Details Date Type Department Care Team ([facility] st Contact Info) Description 03/15/2025 Refill [facility] [address] [place] [address] Dinora Cardona MD [address] [place] [address] Social History Tobacco Use Types Packs/Day Years Used Date Smoking Tobacco: Every Day Cigarettes Smokeless Tobacco: Former Alcohol Answer Date Recorded Frequency of Alcohol Consumption Not on file 02/24/2024 Average Number of Drinks Not on file 024 Frequency of Binge Drinking Not on file 02/12 Score 0 02/24/2024 Depression Answer Date Recorded Patient Health Questionnaire-9 Score 0 03/08/2025 Patient Health Questionnaire-9 Score 0 03/08/2025 Last PHQ-9: Questionnaire Data Not on file 0 03/08/2025 Housing Stability Answer Date Recorded What is your housing situation today? I have gus childers 03/01/[address] you li ve. Do you have problems with any of the following? None of the above 03/01/2025 Food Insecurity Answer Date Recorded Within the past 12 months, y ou worried that your food would run out before you got money to buy more: Never True 03/01/2025 Within the past 12 months,th e food you bought just didn't last and you didn't have enough money to get more: Never True Transportation Answer Date Recorded In the past 12 months, has l ack of transportation kept you from medical appts, meetings, work or from getting things needed for daily living? No 03/01/2025 Utilities Answer Date Recorded In the past 12 months, has t he electric, gas, oil or water company threatened to shut off services in your home? No 03/01/2025 Depression Answer Date Recorded Patient Health Questionnaire-2 Score 0 03/08/2025 Internet Access Answer Date Recorded Internet Access Q1 Yes 03/01/2025 Internet Access Q2 Not on file 03/01/2025 Sex and Gender Information Value Date Recorded [...] Noted Time PHQ-9 Depression Total Score: 0 03/08/20 25 9:10 AM EDT documented as of this encounter Care Teams Fuse Assembler Relationship Specialty Start Date End Date Dinora Cardona MD [address] [place] [phone] PCP - General Family Medicine 08/26/12 documented as of this encounter
--- OUTSIDE RECORDS SUMMARY | 2025-05-11 15:12 | XMS_ITS | Clinical Summary ---
Author Organization [employer] Address [address] [facility] 7t [place] [address] Care Team Providers Care Mechanical Engineering Professor Name Role Phone Dinora Cardona MD Primary Care Provider Allergies No known active allergies Medications tadalafil (Cialis) 5 MG tablet Active omega-3 (Fish Oil) 1000 MG capsule TAKE 1 CAPSULE (500 MG) BY MOUTH IN THE MORNING. 60 capsule 11 3 Active aspirin 81 MG EC tablet Take 1 tablet by mouth at bed time. 0 Active ezetimibe (Zetia) 10 MG tablet Take [...] by mouth Once per day. 60 tablet 5 11/09/19 Active hydroCHLOROthiazi de (HYDRODiuril) 25 MG tablet Take 1 tablet (25 mg) by mouth Once per day. 90 tablet 3 Active Active Problems Problem Noted Date Diagnosed Date Elevated PSA 08/24/2024 Hypercholesterolemia 02/20/2014 Adenomatous polyp of colon 02/20/2014 Essential hypertension 11/10/2011 Gastroesophageal reflux disease 11/10/2011 Vitamin D deficiency 02/18/2011 Encounters Date Type Department Care Team Description 03/15/2025 Refill [facility] [address] [place] [address] Dinora Cardona MD 03/08/2025 9:30 AM EDT Office Visit [facility] [address] [place] [address] Dinora Cardona MD Essential hypertension (Primary Dx); Hypercholesterolemia; Encounter for annual wellness visit; Sleep apnea, unspecified type 03/08/2025 Travel 03/01/2025 Patient Outreach [facility] [address] [place], [place] [phone] Dinora Cardona MD Pre-visit Planning (SDOH screening negative and Tobacco screening negative) 03/01/2025 Travel from Last 3 Months Immunizations Immunization Administration [...] Sign Reading Time Taken Comments Blood Pressure 123/75 03/08/2025 9:07 AM EDT Pulse 56 03/08/2025 9:07 AM EDT Temperature 36.7 C (98 F) 03/08/2025 9:07 AM EDT Respiratory Rate 18 03/08/2025 9:07 AM EDT Oxygen Saturation 99% 08/24/2024 9:05 AM EST Inhaled Oxygen Concentration - - Weight 74.4 kg (164 lb) 03/08/2025 9:07 AM EDT Height 175.3 cm (5' 9 ) 03/08/2025 9:07 AM EDT Body Mass Index 24.22 03/08/2025 9:07 AM EDT Plan of Treatment Health Maintenance Due Date Last Done Comments CT Colonography 1958 FIT DNA/Cologuard 1958 FIT 1958 FOBT 1958 Sigmoidoscopy 1958 Alcohol/Substance Use Screening 1970 Hepatitis C Screening 02/16/1976 COVID-19 Vaccine ( season) 2024 02/01/2024, 05/21/2022, 12/31/2021, Additional history exists Pneumococcal Vaccine: 50+ Years (2 of 2 - PCV) 05/22/2024 05/22/2023 Influenza Vaccine (#1) 2025 , 02/13/2024, 05/21/2023, Additional history exists Colonoscopy 08/03/2025 08/03/2024, 02/13, 12/20/2008 Colorectal Cancer Screening 08/03/2025 SDOH Screening 03/01/2026 03/01/2025 Depression Screening 03/08/2026 03/08/2025, 03/08/20 Tobacco Screening 03/08/2026 03/08/2025 Lipid Panel 02/21/2030 02/21/2025, 12/0 10/2023, 02/09/2024, Additional history exists DTaP/Tdap/Td Vaccines (2 - Td or Tdap) 05/25/2033 05/25/2023, 04/28/2017, 08/18/2006 Zoster Vaccines Completed 02/08/2021, 11/16/2019 RSV Patients and Patients Aged 60 years or older Completed 05/25/2023 HIB Vaccines Aged Out No [...] Procedure Name Priority Date/Time Associated Diagnosis Comments TSH W/REFLEX TO FT4 Routine 02/21/2025 6 :53 AM EDT Hypercholesterolemi a HEPATIC FUNCTION PANEL Routine 02/21/2025 6:53 AM EDT Essential hypertension Hypercholesterolemi a LIPID PANEL, STANDARD Routine 02/21/2025 6:53 AM EDT Essential hypertension Hypercholesterolemi a BASIC METABOLIC PANEL Routine 02/21/2025 6:53 AM EDT Essential hypertension Hypercholesterolemi a HM COLONOSCOPY Routine 08/03/2024 from Last 3 Months or Most Recently Relevant to Health Maintenance Results * TSH with Reflex to Free T4 (02/21/2025 6:53 AM EDT) TSH reflex Free T4 1.28 0.32 - 4.0 uIU/mL [facility] Blood Venous blood specimen / Unknown 02/21/2025 6:53 AM EDT 02/21/2025 10:23 AM EDT us Dinora Cardona MD LAB BLOOD ORDERABLES Final Resul t [facility] [address] [place] [phone] * Hepatic Function Panel (02/21/2025 6:53 AM EDT) Bilirubin, Total 0.3 0.0 - 1.0 mg/dL [facility] Bilirubin, Direct 0.1 0.0 - 0.5 mg/dL [facility] Aspartate Amino Transferase 31 5 - 37 U/L [facility] Comment:Slight Hemolysis.Int erpret result with caution. Alanine Aminotransferase 19 0 - 40 U/L [facility] Total Protein 7.2 6.5 - 8.0 g/dL [facility] Albumin Level 4.6 3.5 - 5.0 g/dL [facility] Alkaline Phosphatase 93 39 - 117 U/L [facility] Blood Venous blood specimen / Unknown 02/21/2025 6:53 AM EDT 02/21/2025 10:23 AM EDT us Dinora Cardona MD LAB BLOOD ORDERABLES Final Resul t [facility] [address] [place] [address] [phone] * (ABNORMAL) Lipid Panel, Standard (02/21/2025 6:53 AM EDT) Triglycerides 85 <150 mg/dL [facility] Comment:Desirable Triglyceri de: less than 150 mg/dLBorderline High Triglyceride 150-199 mg/dLHigh Triglyceride: 200-499 mg/dLVery High Triglyceride: greater than or equal to 5OO mg/dL Cholesterol 200(H) <200 mg/dL [facility] Comment:Desirable Cholestero l: less than 200 mg/dLBorderline High Cholesterol: 200-239 mg/dLHigh Cholesterol: greater than 239 mg/dL LDL Cholesterol Calculated 131(H) <100 mg/dL [facility] Comment:Desirable LDL: less than 100 mg/dLNear Optimal/Above Optimal LDL: 110- 129 mg/dLBorderline High LDL: 130-159 mg/dLHigh LDL: 160-189 mg/dLVery High LDL: greater than or equal to 190 mg/dL HDL Cholesterol 52 >40 mg/dL [facility] Comment:Desirable HDL: great er than 40 mg/dL Note: This HDL assay may give artificially low results in patients with liver disease. Blood Venous blood specimen / Unknown 02/21/2025 6:53 AM EDT 02/21/2025 10:23 AM EDT Dinora Cardona MD LAB BLOOD ORDERABLES Final Resul t Performing Organization Address [facility] [address]/[facility] de Phone Number [facility] [address] [place] [phone] * (ABNORMAL) Basic Metabolic Panel (02/21/2025 6:53 AM EDT) Sodium 141 135 - 145 mmol/L [facility] Potassium 4.0 3.3 - 5.1 mmol/L [facility] Comment:Slight Hemolysis.Int erpret result with caution. Chloride 109(H) 96 - 108 mmol/L [facility] Carbon Dioxide 22 22 - 29 mmol/L [facility] Anion Gap 14 12 - 20 [facility] Urea Nitrogen (BUN) 14 9 - 16 mg/dL [facility] Creatinine, Serum 0.79 0.5 - 1.4 mg/dL [facility] Estimated Glomerular Filt Rate >60 [facility] Comment:Chronic Kidney Disea se: Estimated GFR < 60 mL/min/1.58g0[place] Kidney Disease: Estimated GFR < 15 mL/min/1.73m2 Glucose 93 60 - 115 mg/dL [facility] Calcium 9.4 8.4 - 10.2 mg/dL [facility] Blood Venous blood specimen / Unknown 02/21/2025 6:53 AM EDT 02/21/2025 10:23 AM EDT us Dinora Cardona MD LAB BLOOD ORDERABLES Final Resul t Performing Organization Address [facility] [address]/[facility] Co de Phone Number [facility] [address] [place] [phone] * Colonoscopy (08/03/2024) Colonoscopy Normal Normal Narrative Mylene Abad - 08/03/2024 Colonoscopy order added us Historical Provider HEALTH MAINTENANCE Final Result from Last 3 Months or Most Recently Relevant to Health Maintenance Insurance [employer] Care Teams Mechanical Engineering Professor Relationship Specialty Start Date End Date Dinora Cardona MD [address] [place] [phone] PCP - General Family Medicine 08/26/12
--- OUTSIDE RECORDS SUMMARY | 2025-05-11 15:13 | XMS_ITS | Encounter Summary ---
Author Organization [employer] Address [address] [facility] [address] [place] [address] Care Team Providers Care Wire Stitcher Operator Name Role Phone Dinora Cardona MD Primary Care Provider Encounter Details Date Type Department Care Team ([facility] st Contact Info) Description 01/15/2023 Orders Only [facility] [address] [place] [address] Rosario Parks LPN Social History Tobacco Use [...] EDT) Sodium 139 135 - 145 mmol/L [facility] Potassium 3.6 3.3 - 5.1 mmol/L [facility] Chloride 105 96 - 108 mmol/L [facility] Carbon Dioxide 27 22 - 29 mmol/L [facility] Anion Gap 11(L) 12 - 20 [facility] Urea Nitrogen (BUN) 16 9 - 16 mg/dL [facility] Creatinine, Serum 0.80 0.5 - 1.4 mg/dL [facility] Estimated Glomerular Filt Rate >60 [facility] Comment:NOTE: For -Am erican individuals, multiply the result by 1.210.Chronic Kidney Disease: Estimated GFR < 60 mL/min/1.58u9Bxsdel Kidney Disease: Estimated GFR < 15 mL/min/1.73m2 Glucose Fasting 89 60 - 99 mg/dL [facility] Calcium 9.8 8.4 - 10.2 mg/dL [facility] 05/25/2023 10:2 2 AM EDT 05/25/2023 2:18 PM EDT Dinora Cardona MD LAB BLOOD ORDERABLES Final Resul t [facility] [address] [place] [address] [phone] documented in this encounter Visit Diagnoses Not on filedocumented in this encounter Care Teams Wire Stitcher Operator Relationship Specialty Start Date End Date Dinora Cardona MD [address] [place] [address] PCP - General Family Medicine 08/26/12 documented as of this encounter
--- OUTSIDE RECORDS SUMMARY | 2025-05-11 15:13 | XMS_ITS | Encounter Summary ---
Author Organization [employer] Address [address] [place] [address] [address] [place] [address] Care Team Providers Care Drawer In Jacquard Loom Name Role Phone Dinora Cardona MD Primary Care Provider [phone] Encounter Details Date Type Department Care Team (Late st Contact Info) Description 05/26/[address] [facility] [address] [place], [place] [phone] Dinora Cardona MD [address] [place] [address] Social History Tobacco Use Types Packs/Day Years [...] documented as of this encounter Care Teams Drawer In Jacquard Loom Relationship Specialty Start Date End Date Dinora Cardona MD [address] [place] [phone] PCP - General Family Medicine 08/26/12 documented as of this encounter
== END 2025-05-11 15:41 | disposition home or self-care (01) ==
LOC: HO.HSMS 14:34
PROVIDERS: PCP Student in an Organized Health Care Education/Training Program; Visit Provider Physician Assistant Medical
DX: G47.19 Other hypersomnia (principal)
CPT/HCPCS: 99204

== ENCOUNTER 2025-07-05 12:16 | Outpatient (AMB) | payer OTHER, SELFPAY ==
--- NOTE | 2025-07-05 12:58 | MHC.OFFVIS ---
Vital Signs 07/05/25 13:01 Height 5 ft 9 in Weight 155 lb 3.287 oz BMI 22.9 BP 118/62 Blood Pressure Location Rt brachial Position Sitting Pulse 63 Pulse Source Monitor Intake Visit Reasons: 1 yr f/up Intake Note: 1 yr f.up Assistant Clinical Director Required: No Accompanied by: Self / Same As Patient Allergies No Known Allergies Allergy (Verified 05/11/25 15:06) Medication List - Last Reconciled 07/05/25 by Bong Arndt MD amlodipine 10 mg PO DAILY aspirin (Adult Aspirin Regimen) 81 mg PO DAILY atorvastatin 40 mg PO DAILY clonidine HCl 0.1 mg PO BID ezetimibe 10 mg PO DAILY hydrochlorothiazide 25 mg PO DAILY lisinopril 40 mg PO BID metoprolol tartrate 50 mg PO BID multivitamin (Daily Multi-Vitamin tablet) 1 tab PO DAILY naproxen 500 mg PO BID peg 3350-electrolytes 236-22.74-6.74 -5.86 gram (Golytely) 240 mL PO Q10M 1 day HPI Comments Details: 65-year-old gentleman here for follow-up. Blood pressure is well controlled. He has no chest discomfort. He has dyspnea on exertion and was a former smoker and his PFTs as shown emphysema. Overall he is clinically stable and is denying any new symptoms. Blood pressure control is good. He is smoking half pack per day. He has used Wellbutrin in the past with some success and will be using it. 04/08/23: He is here for follow-up. He has been doing well. He is taking amlodipine 10 mg daily, clonidine 0.1 mg twice a day, hydrochlorothiazide 25 mg daily, lisinopril 40 mg daily, and metoprolol 50 mg twice a day. Blood pressure control is good. No dizziness or lightheadedness. He continues to smoke and we had a detailed discussion again about smoking cessation. 10/19/2023: He returns for follow-up. End of August he went to [facility] Emergency Department because he started feeling dizzy and said that he almost passed out. He felt that he was going to black out and it was not a vertigo like feeling. He said he checked his blood pressure at home before the EMS arrived and his blood pressure was 180/110. He said he has been taking his medications regularly in particular he has not missed clonidine. He said he went to the ER and after waiting for several hours he decided to leave from the emergency department. He said since then he has been fine over the last month and did not have any further symptoms. He said he has checked his blood pressure at home it has been running anywhere from 140s to high 150s. In the office currently his blood pressure manually is 150/90. He is saying that he has been taking medications regularly. 11/18/23: He is here for f/u. He has been doing well. No chest pain or shortness breath. He has been trying to quit smoking. He is saying his quit date is December 13. He is asking for Chantix. 07/13/2024: He is here for follow-up. He has been doing well. He has stopped smoking for last 3 months. Blood pressure is well controlled. Overall doing well. 07/05/2025: He is here for follow-up. Blood pressure is well controlled. He has quit smoking. He was snoring at night and we will be undergoing sleep study. Overall doing quite well. [facility] Medical History Coronary artery calcification seen on CAT scan COVID-19 vaccine series completed On beta chuck at home HTN (hypertension) Dilation of aorta Personal history of nicotine dependence Dyspnea on exertion Renal cyst HLD (hyperlipidemia) Resistant hypertension Surgical History History of hand surgery Presence of tooth-root and mandibular implants (~2020) History of esophagogastroduodenoscopy (EGD) (~2011) History of colonoscopy (~2011) History of vasectomy (~1991) Family History Father COPD (chronic obstructive pulmonary disease) Mother Heart disease Thyroid cancer Social History Are you a primary healthcare market consultant to a significant other at home: No Do you presently have visiting nurse or other home services: No Alcohol intake: current Alcohol intake frequency: holidays/special occasions only Patient Tobacco Use Status: Never used Tobacco Tobacco use type: Cigarette Years Smoked: 25 +/- Substance Use Type: Marijuana Current occupational status: employed 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 Current occupational exposures/hazards: No Review of Systems Const Denies chills, Denies fatigue, Denies fever(s), Denies frequent falls, Denies weakness, Denies weight gain and Denies weight loss ENT Denies dizziness Card Denies chest pain, Denies leg edema, Denies lightheadedness, Denies palpitations, Denies dyspnea and Denies dyspnea on exertion Resp Denies cough, Denies dyspnea and Denies dyspnea on exertion GI Denies hematochezia Musc Denies abnormal gait, Denies muscle weakness, Denies numbness, Denies radiating pain into limb and Denies tingling Neuro Denies abnormal gait, Denies dizziness, Denies frequent falls, Denies numbness, Denies tingling and Denies weakness Endo Denies fatigue and Denies palpitations Physical Exam Vital Signs: Last Vital Signs Pulse 63 07/05/25 13:01 BP 118/62 07/05/25 13:01 BMI result Body Mass Index 22.9 GENERAL APPEARANCE: in no acute distress. NECK/THYROID: Right carotid bruit, no jugular venous distention. SKIN: no suspicious lesions, warm and dry. HEART: no murmurs, regular rate and rhythm, S1, S2 normal. LUNGS: clear to auscultation bilaterally. Diminished breath sounds bilaterally. ABDOMEN: normal, bowel sounds present, soft, nontender, nondistended. EXTREMITIES: no edema. PERIPHERAL PULSES: equal. NEUROLOGIC: nonfocal, alert and oriented. PSYCH: mood/affect full range. Office Procedures EKG Details: Sinus bradycardia 63 beats per minute, normal axis, inferior T-wave inversions-can not rule out ischemia, QTC 403 milliseconds. 49190-Ufyzzijvnrrbffckh, Complete Assessment & Plan Assessment & Plan (1) HLD (hyperlipidemia): Code(s): E78.5 - Hyperlipidemia, unspecified Category: Medical (2) Resistant hypertension: Code(s): I10 - Essential (primary) hypertension Category: Medical (3) Essential hypertension: Code(s): I10 - Essential (primary) hypertension Category: Medical Plan Pleasant 65 year gentleman who is here for follow-up. He has background history of hypertension and hyperlipidemia. Blood pressure is well controlled on multiple medicines including amlodipine, clonidine, hydrochlorothiazide, lisinopril and metoprolol. Last LDL was 131 in February 2025. He is currently on atorvastatin and ezetimibe. His target LDL is less than 70, ideally less than 55. We will repeat fasting lipid panel. He will see us in 1 year. Thank you for allowing me to participate in the care of your patient. Please feel free to contact me if you have any questions. Orders: Orders Lipid Panel Today E78.5 - Hyperlipidemia, unspecified Coding Level of Care Code Est Pt Level 4 (05279) Diagnoses HLD (hyperlipidemia) E78.5 Resistant hypertension I10 Essential hypertension I10 CPT Codes EKG - CPT: 23490-Aqemztiwopldwnctc, Complete ([id number])
[2025-07-05 13:01] VITALS: BP 118/62; PULSE 63; BMI 22.9
== END 2025-07-05 13:17 | disposition home or self-care (01) ==
LOC: HO.HCS 12:17
PROVIDERS: PCP Student in an Organized Health Care Education/Training Program; Visit Provider Internal Medicine Cardiovascular Disease
DX: E78.5 Hyperlipidemia, unspecified (principal); I10 Essential (primary) hypertension
CPT/HCPCS: 93010; 99214

== ENCOUNTER → 2025-07-05 12:16 | Outpatient (BNVA) | payer OTHER, SELFPAY | PROVIDERS: PCP Student in an Organized Health Care Education/Training Program; Visit Provider Internal Medicine Cardiovascular Disease | DX: I10 Essential (primary) hypertension (principal) | CPT/HCPCS: 93005 ==

== ENCOUNTER 2025-07-25 08:25 | Outpatient (REF) | payer OTHER, SELFPAY ==
--- OUTSIDE RECORDS SUMMARY | 2024-01-26 04:15 | XMS_ITS ---
Author Organization [facility] Address [address] [place] [address] Care Team Providers Care Director Of Clinical Services Name Role Phone Dinora Cardona Primary Care Provider Rupa Redd Unavailable [phone] Rao Bellamy [phone] Encounters Encounter Location Date Provider Diagnosis [facility] [address] [address] 01/26/2024 Rao Bellamy Plan Of Treatment No Information Progress Notes * Andrae DUNBAR GDOB: 8 (65 yo M)Acc No.[id number]:01/26/2024 Progress Note Patient: Andrae COLIN Provider: Wesley De Anda DPM :1960 A ge:63 Y S ex:Male Date:01/26/2024 Address:[address] [place], [place] [id number] Pcp:Dinora Cardona Subjective: * Chief Complaints: * * Medical History: Objective: * Vitals: Assessment: Plan: * Treatment: * Images: * The named appointment provid er may or may not be the originator of this progress note, and it is not deemed complete until electronically signed by the appointment provider. Sign off status: Pending * Provider: Wesley De Anda DPM Date: 0 01/26/2024 Generated for Chintan calhoun/Jodie/eTransmitting on: 1 09/24/2024 08:41 AM EST
--- OUTSIDE RECORDS SUMMARY | 2024-03-25 08:00 | XMS_ITS ---
Author Organization [facility] Address [address] [place] [address] Care Team Providers Care Yardage Control Operator Forming Name Role Phone Dinora Cardona Primary Care Provider Rupa Redd Unavailable [phone] Rao Bellamy [phone] Encounters Encounter Location Date Provider Diagnosis [facility] [address] [address] 03/25/2024 Rao Bellamy Plan Of Treatment No Information Progress Notes * Andrae DUNBAR GDOB: [birth year] (65 yo M)Acc No.[id number]:03/25/2024 Progress Note Patient: Andrae COLIN Provider: Wesley De Anda DPM :1960 A ge:64 Y S ex:Male Date:03/25/2024 Address:[address] [place], [place] [id number] Pcp:Dinora Cardona Subjective: * Chief Complaints: * [...] 03/25/2024 Generated for Chintan calhoun/Jodie/eTransmitting on: 1 09/24/2024 08:40 AM EST
--- OUTSIDE RECORDS SUMMARY | 2024-04-29 09:00 | XMS_ITS ---
Author Organization [facility] Address [address] [place] [address] Care Team Providers Care Lawn Sprinkler Servicer Name Role Phone Dinora Cardona Primary Care Provider Rupa Redd Unavailable [phone] Rao Bellamy Unavailable [phone] REASON FOR VISIT Painful nail(s) aggrevated by shoes and causing difficulty standing/walking. Encounters Encounter Location Date Provider Diagnosis [facility] [address] [facility] [address] [place] [address] 04/29/2024 Rao Bellamy Tinea unguium B35.1 ; [...] as necessary. Patient chooses, no pharmaceutical tx ([id number]) Progress Notes * Andrae DUNBAR GDOB: [birth year] (65 yo M)Acc No.[id number]:04/29/2024 Progress Note Patient: Andrae COLIN Provider: Wesley De Anda DPM :1960 A ge:64 Y S ex:Male Date:04/29/2024 Address:[address] [facility] Pcp:Dinora Cardona Subjective: * Chief Complaints: * [...] as necessary. Patient chooses, no pharmaceutical tx (13782). * Procedure Codes: 1 1721 DEBRIDE NAIL, 6 OR MORE, Modifiers: XS * Images: * The named appointment provid er may or may not be the originator of this progress note, and it is not deemed complete until electronically signed by the appointment provider. Sign off status: Pending * Provider: Wesley De Anda DPM Date: 04/29/2024 Generated for Chintan calhoun/Jodie/eTransmitting on: 1 09/24/2024 08:41 AM EST History and Physical Notes * HPI [...]
--- OUTSIDE RECORDS SUMMARY | 2024-06-02 03:00 | XMS_ITS ---
Author Organization [facility] Address [address] [place] [address] Care Team Providers Care Legal Executive Name Role Phone Dinora Cardona Primary Care Provider Rupa Redd Unavailable [phone] Rao Bellamy [phone] Encounters Encounter Location Date Provider Diagnosis [address] [address] 06/02/2024 Rao Bellamy Plan Of Treatment No Information Progress Notes * Andrae DUNBAR GDOB: [birth year] (65 yo M)Acc No.[id number]:06/02/2024 Progress Note Patient: Andrae COLIN Provider: Wesley De Anda DPM :1960 A ge:64 Y S ex:Male Date:06/02/2024 Address:[address] [place], [place] [id number] Pcp:Dinora Cardona Subjective: * Chief Complaints: * [...] DPM Date: 0 06/02/2024 Generated for Chintan calhoun/Jodie/eTransmitting on: 1 09/24/2024 08:40 AM EST
--- OUTSIDE RECORDS SUMMARY | 2024-12-27 11:00 | XMS_ITS ---
Author Organization [facility] Address [address] [place] [address] Care Team Providers Care Noxious Weeds And Pest Inspector Name Role Phone Dinora Cardona Primary Care Provider Rupa Redd [phone] REASON FOR VISIT Cx w/reminder call Encounters Encounter Location Date Provider Diagnosis [facility] [address] [place] [phone] 12/27/2024 Rupa Okeefe Plan Of Treatment No Information Progress Notes * EZE Andrae GDOB: 8 (65 yo M)Acc No.[id number]:12/27/2024 Progress Note Patient: Andrae COLIN Provider: Tennille Okeefe DPM :1960 A ge:64 Y S ex:Male Date:12/27/2024 Address:[address] [place], [place] [phone] Pcp:Dinora Cardona Subjective: * Chief Complaints: * [...] 12/27/2024 Generated for Chintan ng/Faamritg/eTransmitting on: 1 09/24/2024 08:41 AM EST
--- OUTSIDE RECORDS SUMMARY | 2025-07-25 08:40 | XMS_ITS | Clinical Summary ---
Author Organization [address] Address [address] [place] [address] Phone Care Team Providers Care Server Systems Administrator Name Role Phone iDnora Cardona MD Primary Care Provider [phone] Allergies No known active allergies Medications metoprolol [...] Encounters Date Type Department Care Team Description 06/14/2025 2:45 PM EDT Consult Orthopedic Surgery - [place] [address] [place] [address] [address] [place] [address] Ross Delacruz, DPAlexus Pain in toes of both feet (Primary Dx); Arthritis of both feet; PAD (peripheral artery disease) (CMS/HCC V24); Dermatophytosis, nail from Last 3 Months Family History Medical History Relation Name Comments Other: emphysema Father Other: diverticulitis Mother s/p co lectomy Thyroid disease Mother thyroid ca Relation Name Status Comments Father Mother Social History Tobacco Use Types Packs/Day Years Used Date Smoking Tobacco: Former Cigarettes 1 Q uit: 01/12/2007 Alcohol Use Standard Drinks/Week [...] Care Team (Late st Contact Info) Description 12/14/2025 3:00 PM EDT Office Visit Orthopedic Surgery - [place] [address] [phone] Ross Delacruz, DIANA [address] [address] Health Maintenance Due Date Last Done Comments Colorectal Cancer Screening: Colonoscopy 1960 Pneumococcal Vaccine: 50+ Years (2 of 2 - PCV) 05/22/2024 05/22/2023 Depression Screening 09/14/2024 Abdominal Aortic Aneurysm (AAA) Screen 01/02/2025 Falls Risk Assessment 01/02/2025 Hepatitis C Screening 01/02/2025 Social Influencers of Health Screening 01/02/2025 COVID-19 Vaccine ( season) 2025 02/01/2024, 05/21/2022, 12/31/2021, Additional history exists Influenza Vaccine (#1) 2025 4, 02/13/2024, 05/21/2023, Additional history exists Hypertension/CHF/CAD Annual [...] patient's age to complete this topic Insurance [facility] [place] [id number] Care Teams Server Systems Administrator Relationship Specialty Start Date End Date Dinora Cardona MD [address] [place] [id number] PCP - General 04/25/14
--- OUTSIDE RECORDS SUMMARY | 2025-07-25 08:41 | XMS_ITS | Encounter Summary ---
Author Organization [employer] Address [address] [facility] [address] [place] [address] Care Team Providers Care Linux System Admin Name Role Phone Dinora Cardona MD Primary Care Provider [phone] Kvng Forman MD Primary Care Prov ider Encounter Details Date Type Department Care Team (Late st Contact Info) Description 01/06/2024 Orders Only [facility] [address] [place] [address] Provider, MD Nilson Social History Tobacco Use Types Packs/Day Years Used Date Smoking Tobacco: Every Day Cigarettes Smokeless Tobacco: Former Depression Answer Date Recorded Patient Health Questionnaire-9 Score 0 05/25/2023 Housing Stability Answer Date Recorded What is your housing situation today? I have guslefty childers 06/30/[address] you [...] * Hm Colonoscopy (03/09/2012 11:44 AM EDT) Historical Provider HEALTH MAINTENANCE Final Result * Hm Colonoscopy (12/20/2008 11:46 AM EDT) us Historical Provider HEALTH MAINTENANCE Final Result documented in this encounter Visit Diagnoses Not on filedocumented in this encounter Additional Health Concerns Assessment Noted Time PHQ-9 Depression Total Score: 0 05/25/20 9:50 AM EDT documented as of this encounter Care Teams Linux System Admin Relationship Specialty Start Date End Date Dinora Cardona MD [address] [place] [phone] PCP - General Family Medicine 08/26/12 07/06/25 Kvng Forman MD [address] [place] [phone] PCP - General Internal Medicine 07/07/25 documented as of this encounter
--- OUTSIDE RECORDS SUMMARY | 2025-07-25 08:41 | XMS_ITS | Clinical Summary ---
Author Organization [employer] Address 75 [facility] 7t [place] [address] Care Team Providers Care Freight Engineer Name Role Phone Kvng Forman MD Primary Care Prov ider Allergies No known active allergies Medications omega-3 (Fish Oil) 1000 MG capsule TAKE 1 CAPSULE (500 MG) BY MOUTH IN THE MORNING. 60 capsule 11 05/26/20 23 Active aspirin 81 MG EC tablet Take 1 tablet by mouth at bed time. 05/01/20 20 Active ezetimibe (Zetia) 10 MG tablet Take 10 mg by mouth Once per day. 08/15/20 24 Active amLODIPine (Norvasc) 10 MG tablet Take 1 tablet (10 mg) by mouth Once per day. 90 tablet 11/09/19 25 Active atorvastatin (Lipitor) 40 MG tablet Take 1 tablet (40 mg) by mouth Once per day. 90 tablet 11/09/19 25 Active cloNIDine (Catapres) 0.1 MG tablet Take 1 tablet (0.1 mg) by mouth 3 times daily. 270 tablet 11/09/19 25 Active metoprolol tartrate (Lopressor) 100 MG tablet Take 1 tablet (100 mg) by mouth 2 times daily. 60 tablet 11/09/19 25 026 Active lisinopril 40 MG tabletIndication s:Primary hypertension Take 2 tablets (80 mg) by mouth Once per day. 60 tablet 11/09/19 25 026 Active hydroCHLOROthiaz dl (HYDRODiuril) 25 MG tablet Take 1 tablet (25 mg) by mouth Once per day. 90 tablet 11/09/19 25 Active tadalafil (Cialis) 5 MG tablet 025 Discontinued Dutasteride-Tams ulosin HCl 0.5-0.4 MG capsule 1 capsule in the morning. 025 Discontinued(Th erapy completed) Active Problems Problem Noted Date Diagnosed Date Elevated PSA 08/24/2024 Hypercholesterolemia 02/20/2014 Adenomatous polyp of colon 02/20/2014 Essential hypertension 11/10/2011 Gastroesophageal reflux disease 11/10/2011 Vitamin D deficiency 02/18/2011 Encounters Date Type Department Care Team Description 07/24/2025 Travel 07/17/2025 Telephone [facility] [address] [place] [address] Kvng Forman MD 07/17/2025 Travel 07/10/2025 Travel from Last 3 Months Immunizations Immunization Administration Dates Next Due INFLUENZA INJECTABLE QUADRIV ALANT CCIIV4 MDCK Multi-dose vial 06/17/2019 Influenza Quadrivalent Adjuvanted 05/21/2023 Influenza injectable quadriv alent IIV4 with preservative 06/24/2018,06/12/2015 Influenza injectable quadriv alent preservative free 05/21/2022,06/06/2021,05/18/2020,06/17,09/09/2014 Influenza, High Dose Seasona l, Preservative Free 05/24/2024 Influenza, IIV3, injectable 07/09/2025 Influenza, Split (incl. richa fied surface antigen) 07/05/2013 Influenza, Unspecified 02/13/2024 Influenza, seasonal, intrade rmal, preservative free 07/24/2012 Pfizer Covid-19 Vaccine 12+ 07/09/2025 Pneumococcal Polysaccharide PPSV23 05/22/2023 RSV Adjuvant 05/25/2023 TD (adult), 2 Lf tetanus tox oid, preservative free, adsorbed 08/18/2006 Td (adult), 5 Lf tetanus tox oid, preservative free, adsorbed 04/28/2017 Tdap 05/25/2023 Zoster, Recombinant 02/08/2021,11/16/2019 Family History Medical History Relation Name Comments Emphysema Father Heart failure Mother Hypertension Mother Cancer Neg Hx Relation Name Status Comments Father Mother Social History Tobacco Use Types Packs/Day Years Used Date Smoking Tobacco: Every Day Cigarettes Smokeless Tobacco: Former Tobacco Cessation:Ready to Q uit: Not Asked; Counseling Given: Not Answered Alcohol Use Standard Drinks/Week Comments Not Currently 0 (1 standard drink = 0.6 oz pur e alcohol) Alcohol Answer Date Recorded Frequency of Alcohol Consumption Not on file 02/24/2024 Average Number of Drinks Not on file Frequency of Binge Drinking Not on file [...] 1960 Sigmoidoscopy 1960 Hepatitis C Screening 02/16/1976 Pneumococcal Vaccine: 50+ Years (2 of 2 - PCV) 05/22/2024 05/22/2023 Colonoscopy 08/03/2025 08/03/2024, 02/13, 12/20/2008 Colorectal Cancer Screening 08/03/2025 COVID-19 Vaccine ( season) 2025 07/09/2025, 02/01/2024, 05/21/2022, Additional history exists SDOH Screening 03/01/2026 03/01/2025 Depression Screening 03/08/2026 03/08/2025, 03/08/20 Tobacco Screening 03/08/2026 03/08/2025 Alcohol/Substance Use Screening 07/17/2026 07/17/2025 Lipid Panel 02/21/2030 02/21/2025, 12/10/2023, 02/09/2024, Additional history exists DTaP/Tdap/Td Vaccines (2 - Td or Tdap) 05/25/2033 05/25/2023, 04/28/2017, 08/18/2006 Zoster Vaccines Completed 02/08/2021, 11/16/2019 RSV Patients and Patients Aged 60 years or older Completed 05/25/2023 Influenza Vaccine Completed 07/09/2025, , 05/24/2024, Additional history exists HIB Vaccines Aged Out [...] Associated Diagnosis Comments LIPID PANEL, STANDARD Routine 02/21/2025 6:53 AM EDT Essential hypertension Hypercholesterolemi a HM COLONOSCOPY Routine 08/03/2024 from Last 3 Months or Most Recently Relevant to Health Maintenance Results * (ABNORMAL) Lipid Panel, Standard (02/21/2025 6:53 AM EDT) Triglycerides 85 <150 mg/dL [facility] Comment:Desirable Triglyceri de: less than 150 mg/dLBorderline High Triglyceride 150-199 mg/dLHigh Triglyceride: 200-499 mg/dLVery High Triglyceride: greater than or equal to 5OO mg/dL Cholesterol 200(H) <200 mg/dL [facility] Comment:Desirable Cholestero l: less than 200 mg/dLBorderline High Cholesterol: 200-239 mg/dLHigh Cholesterol: greater than 239 mg/dL LDL Cholesterol Calculated 131(H) <100 mg/dL [facility] Comment:Desirable LDL: less than 100 mg/dLNear Optimal/Above Optimal LDL: 110- 129 mg/dLBorderline High LDL: 130-159 mg/dLHigh LDL: 160-189 mg/dLVery High LDL: greater than or equal to 190 mg/dL HDL Cholesterol 52 >40 mg/dL [facility] Comment:Desirable HDL: great er than 40 mg/dL Note: This HDL assay may give artificially low results in patients with liver disease. Blood Venous blood specimen / Unknown 02/21/2025 6:53 AM EDT 02/21/2025 10:23 AM EDT us Dinora Cardona MD LAB BLOOD ORDERABLES Final Resul t [facility] [address] [place] [address] [phone] * Colonoscopy (08/03/2024) Colonoscopy Normal Normal Narrative Mylene Abad - 08/03/2024 Colonoscopy order added us Historical Provider HEALTH MAINTENANCE Final Result from Last 3 Months or Most Recently Relevant to Health Maintenance Insurance [facility] [employer] MEDICARE PREFERRED PRIME Care Teams Freight Engineer Relationship Specialty Start Date End Date Kvng Forman MD [address] [place] [id number] PCP - General Internal Medicine 07/07/25
--- OUTSIDE RECORDS SUMMARY | 2025-07-25 08:41 | XMS_ITS | Patient Health Record ---
Author Organization [facility] Address [address] [place] [address] Care Team Providers Care Toeing Stockings Name Role Phone Dinora Cardona Primary Care Provider Rupa Redd Unavailable [phone] Allergies No Known Allergies Reason For Referral [...] a day Active Metoprolol-HCTZ ER A ctive Saco 3 1000 MG 1 capsule Orally Once [...] Are you an other tobacco user? No Encounters Encounter Location Date Provider Diagnosis [facility] [place] [address] [facility] [address] [place] [address] 12/15/2024 Rupa Okeefe Plan Of Treatment Pending Test Test Name Order Date X ray : Foot, left 3V 09/29/2023 Insurance Providers Payer Name Payer Address Payer Phone Subscriber Number Group Number Insured Name Patient Relationship to Insured Coverage Start Date Coverage End Date [facility] [employer] Claims [address] [place] [address] [id number] Andrae Dunbar Self - patient is the insured Medical (General) History Medical History History ICD Code Arthritis CAD (Cholesterol) High blood pressure Measles Mumps Chicken pox Surgical History Surgery Date(Month/Year) Hospitalization History Reason Date(Month/Year) [facility]- stroke symptoms 09/2023
--- OUTSIDE RECORDS SUMMARY | 2025-07-25 08:41 | XMS_ITS | Encounter Summary ---
Author Organization [employer] Address [address] [facility] 7t [place] [address] Care Team Providers Care Double End Chucking Machine Operator Name Role Phone Dinora Cardona MD Primary Care Provider [phone] Kvng Forman MD Primary Care Prov ider Encounter Details Date Type Department Care Team (Late st Contact Info) Description 01/15/2023 Orders Only [facility] [address] [place] [address] Rosario Parks LPN Social History Tobacco Use [...] EDT) Sodium 139 135 - 145 mmol/L [facility] Potassium 3.6 3.3 - 5.1 mmol/L [facility] Chloride 105 96 - 108 mmol/L [facility] Carbon Dioxide 27 22 - 29 mmol/L [facility] Anion Gap 11(L) 12 - 20 [facility] Urea Nitrogen (BUN) 16 9 - 16 mg/dL [facility] Creatinine, Serum 0.80 0.5 - 1.4 mg/dL [facility] Estimated Glomerular Filt Rate >60 [facility] Comment:NOTE: For -Am erican individuals, multiply the result by 1.210.Chronic Kidney Disease: Estimated GFR < 60 mL/min/1.06w0Aekxvb Kidney Disease: Estimated GFR < 15 mL/min/1.73m2 Glucose Fasting 89 60 - 99 mg/dL [facility] Calcium 9.8 8.4 - 10.2 mg/dL [facility] 05/25/2023 10:2 2 AM EDT 05/25/2023 2:18 PM EDT us Dinora Cardona MD LAB BLOOD ORDERABLES Final Resul t [facility] [address] [place] [address] [phone] documented in this encounter Visit Diagnoses Not on filedocumented in this encounter Care Teams Double End Chucking Machine Operator Relationship Specialty Start Date End Date Dinora Cardona MD [address] [place] [phone] PCP - General Family Medicine 08/26/12 07/06/25 Kvng Forman MD [address] [place] [address] PCP - General Internal Medicine 07/07/25 documented as of this encounter
--- OUTSIDE RECORDS SUMMARY | 2025-07-25 08:41 | XMS_ITS | Encounter Summary ---
Author Organization [employer] Address [address] [facility] [address] [place] [address] Care Team Providers Care Radio Director Name Role Phone Dinora Cardona MD Primary Care Provider [phone] Kvng Forman MD Primary Care Prov ider Encounter Details Date Type Department Care Team ([facility] st Contact Info) Description 05/26/2023 Orders Only [facility] [address] [place], [place] [phone] Dinora Cardona MD [address] [place] [address] Social History Tobacco Use Types Packs/Day Years [...] documented as of this encounter Care Teams Radio Director Relationship Specialty Start Date End Date Dinora Cardona MD [address] [place] [id number] PCP - General Family Medicine 08/26/12 07/06/25 Kvng Forman MD [address] [place] [address] JERED Benavides [id number] PCP - General Internal Medicine 07/07/25 documented as of this encounter
--- OUTSIDE RECORDS SUMMARY | 2025-07-25 08:41 | XMS_ITS | Encounter Summary ---
Author Organization [employer] Address [address] [facility] [address] [place] [address] Care Team Providers Care Picking Machine Operator Name Role Phone Dinora Cardona MD Primary Care Provider [phone] Kvng Forman MD Primary Care Prov ider Reason for Visit * Reason Onset Date Comments Med Refill 03/15/2025 Encounter Details Date Type Department Care Team (Late st Contact Info) Description 03/15/2025 Refill [facility] [address] [place], [place] [phone] Dinora Cardona MD [address] [place] [address] Social History Tobacco Use Types Packs/Day Years [...] Time PHQ-9 Depression Total Score: 0 03/08/20 9:10 AM EDT documented as of this encounter Care Teams Picking Machine Operator Relationship Specialty Start Date End Date Dinora Cardona MD [address] [place] [phone] PCP - General Family Medicine 08/26/12 07/06/25 Kvng Forman MD [address] [place] [address] PCP - General Internal Medicine 07/07/25 documented as of this encounter
--- OUTSIDE RECORDS SUMMARY | 2025-07-25 08:41 | XMS_ITS | Encounter Summary ---
Author Organization [employer] Address [address] [facility] [address]t [place] [address] Care Team Providers Care Storekeeper Engineering Name Role Phone Dinora Cardona MD Primary Care Provider [phone] Kvng Forman MD Primary Care Prov ider Encounter Details Date Type Department Care Team ([facility] st Contact Info) Description 12/29/2023 Orders Only [facility] [address] [place], [place] [phone] Dinora Cardona MD [address] [place] [address] Social History Tobacco Use Types Packs/Day Years [...] documented as of this encounter Care Teams Storekeeper Engineering Relationship Specialty Start Date End Date Dinora Cardona MD [address] [place] [phone] PCP - General Family Medicine 08/26/12 07/06/25 Kvng Forman MD [address] [place] [address] PCP - General Internal Medicine 07/07/25 documented as of this encounter
--- OUTSIDE RECORDS SUMMARY | 2025-07-25 08:41 | XMS_ITS | Encounter Summary ---
Author Organization [employer] Address [address] [facility] 7t [place] [address] Care Team Providers Care Equipment Records Supervisor Name Role Phone Kvng Forman MD Primary Care Prov ider Encounter Details Date Type Department Care Team (Latest Contact Info) Description 07/24/2025 Travel Social History Tobacco Use Types Packs/Day Years Used Date Smoking Tobacco: Every Day Cigarettes Smokeless Tobacco: Former Alcohol Use Standard Drinks/Week Comments Not Currently [...] documented as of this encounter Care Teams Equipment Records Supervisor Relationship Specialty Start Date End Date Kvng Forman MD [address] [place] [phone] PCP - General Internal Medicine 07/07/25 documented as of this encounter
[2025-07-25 14:45] LABS: Alanine Aminotransferase 17 U/L (0-40); Albumin Level 4.2 g/dL (3.5-5.0); Alkaline Phosphatase 85 U/L (39-117); Anion Gap 10 (12-20); Aspartate Amino Transferase 26 U/L (5-37); Blood Urea Nitrogen 14 mg/dL (9-16); Calcium 9.3 mg/dL (8.4-10.2); Carbon Dioxide 29 mmol/L (22-29); Chloride 103 mmol/L (96-108); Cholesterol 176 mg/dL (<200); Estimated Glomerular Filt Rate > 60; HDL Cholesterol 45 mg/dL (>40); Potassium 4.1 mmol/L (3.3-5.1); Sodium 138 mmol/L (135-145); Total Protein 6.8 g/dL (6.5-8.0); Triglycerides 114 mg/dL (<150)
== END 2025-07-25 08:26 | disposition home or self-care (01) ==
LOC: HO.CHCLDS 08:25
PROVIDERS: PCP Student in an Organized Health Care Education/Training Program; Referring Provider Internal Medicine Cardiovascular Disease; Visit Provider Student in an Organized Health Care Education/Training Program
DX: E78.5 Hyperlipidemia, unspecified (principal)
CPT/HCPCS: 36415; 80048; 80061; 80076

== ENCOUNTER 2025-08-24 14:17 | Outpatient (AMB) | payer OTHER, SELFPAY ==
--- OUTSIDE RECORDS SUMMARY | 2024-03-25 08:00 | XMS_ITS ---
Author Organization [facility] Address [address] [place] [address] Care Team Providers Care Rim Roller Setter Name Role Phone Dinora Cardona Primary Care Provider Rupa Redd Unavailable [phone] Rao Bellamy [phone] Encounters Encounter Location Date Provider Diagnosis [facility] [address] [address] 03/25/2024 Rao Bellamy Plan Of Treatment No Information Progress Notes * Andrae DUNBAR GDOB: 8 (65 yo M)Acc No.[id number]:03/25/2024 Progress Note Patient: Andrae COLIN Provider: Wesley De Anda DPM :1960 A ge:64 Y S ex:Male Date:03/25/2024 Address:[address] [place], [place] [id number] Pcp:Dinora Cardona Subjective: * Chief Complaints: * * Medical History: Objective: * Vitals: Assessment: Plan: * Treatment: * Images: * The named appointment provid er may or may not be the originator of this progress note, and it is not deemed complete until electronically signed by the appointment provider. Sign off status: Pending * Provider: Wesley De Anda DPM Date: 0 03/25/2024 Generated for Chintan calhoun/Jodie/eTransmitting on: 1 10/25/2024 09:48 PM EST
--- OUTSIDE RECORDS SUMMARY | 2024-04-29 09:00 | XMS_ITS ---
Author Organization [facility] Address [address] [place] [address] Care Team Providers Care Break Out Worker Name Role Phone Dinora Cardona Primary Care Provider Rupa Redd Unavailable [phone] Rao Bellamy Unavailable [phone] REASON FOR VISIT Painful nail(s) aggrevated by shoes and causing difficulty standing/walking. Encounters Encounter Location Date Provider Diagnosis [facility] [address] [facility] [address] [place] [address] 04/29/2024 Rao Bellamy Tinea unguium B35.1 ; Pain in right toe(s) M79.674 and Pain in left toe(s) M79.675 Assessments Encounter Date Diagnosis (ICD Code) Assessment Notes Treatment Notes Treatment Clinical Notes Section Notes 04/29/2024 Tinea unguium (ICD-10 - B35.1) 04/29/2024 Pain in right toe(s) (ICD-10 - M79.674) 04/29/2024 Pain in left toe(s) (ICD-10 - M79.675) Plan Of Treatment No Information Procedure Notes * Category Sub-Category Detail Notes Debride Nail 6-10 Nail debridement Nail debridem ent performed extensively to reduce/remove overall nail length and girth, subungual debris, and necrotic tissue, by manual and electrical means with use of a nail nipper and/or dremel, to more viable healthy nail plate or bed tissue 6-10. Silver nitrate used for any petechial bleeding as necessary. Patient chooses, no pharmaceutical tx (94871) Progress Notes * Andrae DUNBAR GDOB: 8 (65 yo M)Acc No.[id number]:04/29/2024 Progress Note Patient: Andrae COLIN Provider: Wesley De Anda DPM :1960 A ge:64 Y S ex:Male Date:04/29/2024 Address:[address] [facility] Pcp:Dinora Cardona Subjective: * Chief Complaints: * 1 . Painful nail(s) aggrevated by shoes and causing difficulty standing/walking.. * HPI: P ainful Nails: Pt States Last PCP Visit: D ate: 0 04/14/2023 F oot Pain: Nature: s harp. Location: B ottom, Outside, Forefoot, B/L, L > R. Onset: u nknown. Course: i mproved. Aggravated: a ny pressure, standing, walking. * Medical History: Objective: * Vitals: * Examination: N ails: NAILS are: e longated,overgrown,dystrophic,greater than 3mm thick,discolored and friable with crumbly malodorous subungual debris, with pain on palpation. Assessment: * Assessment: 1. T inea unguium - B35.1 (Primary) 2 . P ain in right toe(s) - M79.674? 3. P ain in left toe(s) - M79.675 Plan: * Treatment: * Procedures: D ebride Nail 6-10: Nail debridement N ail debridement performed extensively to reduce/remove overall nail length and girth, subungual debris, and necrotic tissue, by manual and electrical means with use of a nail nipper and/or dremel, to more viable healthy nail plate or bed tissue 6-10. Silver nitrate used for any petechial bleeding as necessary. Patient chooses, no pharmaceutical tx (62030). * Procedure Codes: 1 1721 DEBRIDE NAIL, 6 OR MORE, Modifiers: XS * Images: * The named appointment provid er may or may not be the originator of this progress note, and it is not deemed complete until electronically signed by the appointment provider. Sign off status: Pending * Provider: Wesley De Anda DPM Date: 04/29/2024 Generated for Chintan calhoun/Jodie/eTransmitting on: 1 10/25/2024 09:48 PM EST History and Physical Notes * HPI (History of Present Illness) Category Sub-Category Detail Notes Category Not es Painful Nails Pt States Last PCP Visit: Date:: 04/14/2023 Foot Pain Nature: sharp Location: Bottom, Outside, For efoot, B/L, L > R Onset: unknown Course: improved Aggravated: any pressure, standi ng, walking Examination Category Sub-Category Detail Notes Category Not es Nails NAILS are: elongated,overgr own,dystrophic,greater than 3mm thick,discolored and friable with crumbly malodorous subungual debris, with pain on palpation
--- OUTSIDE RECORDS SUMMARY | 2024-06-02 03:00 | XMS_ITS ---
Author Organization [facility] Address [address] [place] [address] Care Team Providers Care Manager Outreach Name Role Phone Dinora Cardona Primary Care Provider Rupa Redd Unavailable [phone] Rao Bellamy [phone] Encounters Encounter Location Date Provider Diagnosis [address] [address] 06/02/2024 Rao Bellamy Plan Of Treatment No Information Progress Notes * Andrae DUNBAR GDOB: [birth year] (65 yo M)Acc No.[id number]:06/02/2024 Progress Note Patient: Andrae COLIN Provider: Wesley De Anda DPM :1960 A ge:64 Y S ex:Male Date:06/02/2024 Address:[address] [place], [place] [id number] Pcp:Dinora Cardona Subjective: * Chief Complaints: * * Medical History: Objective: * Vitals: Assessment: Plan: * Treatment: * Images: * The named appointment provid er may or may not be the originator of this progress note, and it is not deemed complete until electronically signed by the appointment provider. Sign off status: Pending * Provider: Wesley De Anda DPM Date: 0 06/02/2024 Generated for Chintan ng/Faamritg/eTransmitting on: 1 10/25/2024 09:48 PM EST
--- OUTSIDE RECORDS SUMMARY | 2024-12-27 11:00 | XMS_ITS ---
Author Organization [facility] Address [address] [place] [address] Care Team Providers Care Gravel Machine Operator Name Role Phone Dinora Cardona Primary Care Provider Rupa Redd [phone] REASON FOR VISIT Cx w/reminder call Encounters Encounter Location Date Provider Diagnosis [facility] [address] [place] [phone] 12/27/2024 Rupa Okeefe Plan Of Treatment No Information Progress Notes * Andrae DUNBAR GDOB: 8 (65 yo M)Acc No.[id number]:12/27/2024 Progress Note Patient: Andrae COLIN Provider: Tennille Okeefe DPM :1960 A ge:64 Y S ex:Male Date:12/27/2024 Address:[address] [place], [place] [id number] Pcp:Dinora Cardona Subjective: * Chief Complaints: * 1 . Cx w/reminder call. * Medical History: Objective: * Vitals: Assessment: Plan: * Treatment: * Images: * The named appointment provid er may or may not be the originator of this progress note, and it is not deemed complete until electronically signed by the appointment provider. Sign off status: Pending * Provider: Tennille Okeefe DPM Date: 0 12/27/2024 Generated for Chintan ng/Faamritg/eTransmitting on: 1 10/25/2024 09:49 PM EST
[2025-08-24 14:34] VITALS: BP 112/64; PULSE 68; O2SAT 94; BMI 23.3
--- NOTE | 2025-08-24 14:34 | MHC.OFFVIS ---
Vital Signs 08/24/25 14:34 Height 5 ft 9 in Weight 157 lb 8 oz BMI 23.3 BP 112/64 Blood Pressure Location Lt brachial Position Sitting Pulse 68 Pulse Source Pulse Oximeter Pulse Oximetry (%) 94 Oxygen Delivery Method Room Air Intake Visit Reasons: 3 mo follow up Application Integrator Required: No Accompanied by: Self / Same As Patient Allergies No Known Allergies Allergy (Verified 08/24/25 14:35) HPI Comments Details: 65 year old male referred to us for evaluation of sleep apnea by Dr Toro his PCP. Never had a HST completed, still pending due to scheduling conflicts. His c/o him making weird sounds like a wheezing and snoring sound. He gasps for air according to his she has to nudge him. He goes to bed about 10pm and wakes up at 6-7am with 1-2x bathroom breaks, he has BPH, psa are in normal range. He is a smoker <10 cigarettes per day, and occasionally will have MJ. 2-3x per week. He denies morning headaches. BP is well managed. He has copd and emphysema. He is chronically fatigued and will take naps as opportunities present daily for 1.0 hour to 1.5 hour. Memory and mood are stable. Diet is good he is trying to avoid sugars. Avoids alcohol. [facility] Medical History Coronary artery calcification seen on CAT scan COVID-19 vaccine series completed On beta chuck at home HTN (hypertension) Dilation of aorta Personal history of nicotine dependence Dyspnea on exertion Renal cyst HLD (hyperlipidemia) Resistant hypertension Surgical History History of hand surgery Presence of tooth-root and mandibular implants (~2020) History of esophagogastroduodenoscopy (EGD) (~2011) History of colonoscopy (~2011) History of vasectomy (~1991) Family History Father COPD (chronic obstructive pulmonary disease) Mother Heart disease Thyroid cancer Social History Are you a primary outdoor emergency care technician to a significant other at home: No Do you presently have visiting nurse or other home services: No Alcohol intake: current Alcohol intake frequency: holidays/special occasions only Patient Tobacco Use Status: Never used Tobacco Tobacco use type: Cigarette Years Smoked: 25 +/- Substance Use Type: Marijuana Current occupational status: employed 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 Current occupational exposures/hazards: No Physical Exam Vital Signs: Last Vital Signs Pulse 68 08/24/25 14:34 BP 112/64 08/24/25 14:34 Pulse Ox 94 08/24/25 14:34 Oxygen Delivery Method Room Air 08/24/25 14:34 BMI result Body Mass Index 23.3 Const General: cooperative, comfortable and no acute distress Nutritional Appearance: average body habitus Orientation/consciousness: patient oriented x3 HEENT Face and sinus: Yes normal facial exam Teeth and gingiva: other (mallampti 3) Eyes Pupils: Equal, round and reactive pupils present Neck Neck: Yes full ROM Resp Effort & Inspection: normal respiratory effort and able to speak in complete sentences Neuro General: patient oriented x3 and moves all extremities Cranial nerves: Yes Facial sensation intact/muscles of mastication intact, Yes Equal, round and reactive pupils present, Yes Normal accommodation reflex present, Yes Normal facial strength present, Yes Midline tongue present, Yes Ability to bilaterally rotate head present and Yes Ability to bilaterally elevate shoulders present Cognition (Neuro): normal cognition Gait exam (Neuro): Normal gait present Psych Appearance: grossly normal Thought process: Normal thought process present Thought content: Normal thought content present Results Reviewed Results Reviewed: HST is pending Assessment & Plan Assessment & Plan (1) Excessive daytime sleepiness: Code(s): G47.19 - Other hypersomnia Category: Medical Plan HST/ r/o kendall is pending. Labs r/o deficiencies F/U in 2 months for results once HST is completed, please call pt's home phone for scheduling HST. Patient Instructions: pt is to call the central scheduling if he does not hear about getting scheduled for a HST within 2 weeks. Coding Level of Care Code Est Pt Level 4 (65689) Diagnoses Excessive daytime sleepiness G47.19
--- OUTSIDE RECORDS SUMMARY | 2025-08-24 21:48 | XMS_ITS | Clinical Summary ---
Author Organization [employer] Address 75 [facility] 7t [place] [address] Care Team Providers Care Excelsior Cutter Name Role Phone Kvng Forman MD Primary [...] by mouth Once per day. 4 Active amLODIPine (Norvasc) 10 MG tablet Take [...] mouth Once per day. 90 tablet 3 02/26/202 5 Active Active Problems Problem Noted Date Diagnosed Date Elevated PSA 08/24/2024 Hypercholesterolemia 02/20/2014 Assessment & Plan (08/04/2025 3:16 PM EST): On atorvastatin, new labs ordered for guidance of therapy Adenomatous polyp of colon 02/20/2014 Essential hypertension 11/10/2011 Assessment & Plan (08/04/2025 3:15 PM EST): Controlled at home, told to keep a blood pressure log, keep low sodium diet and exercise as tolerated, follow up in 3 months Gastroesophageal reflux disease 11/10/2011 Vitamin D deficiency 02/18/2011 Encounters Date Type Department Care Team Description 08/22/2025 Travel 07/24/2025 2:45 PM EST Telemedicine [facility] [address] [place] [address] Kvng Forman MD Essential hypertension (Primary Dx); Hypercholesterolemia 07/24/2025 Travel 07/17/2025 Telephone [facility] [address] [place] [address] Kvng Forman MD 07/17/2025 Travel 07/10/2025 Travel [...] 03/08/2025 9:07 AM EDT Plan of Treatment Upcoming Encounters Date Type Department Care Team (Late st Contact Info) Description 08/29/2025 3:30 PM EST Office Visit [facility] & PEDS [address] [place] [address] Kvng Forman MD [address] [place] [address] Health Maintenance Due Date Last Done Comments [...] Alcohol/Substance Use Screening 07/17/2026 07/17/2025 Lipid Panel 07/25/2030 07/25/2025, 02/12, 08/15/2024, Additional history exists DTaP/Tdap/Td Vaccines (2 - [...] Procedure Name Priority Date/Time Associated Diagnosis Comments HEPATIC FUNCTION PANEL Routine 07/25/2025 8:29 AM EST Essential hypertension LIPID PANEL, STANDARD Routine 07/25/2025 8:29 AM EST Essential hypertension BASIC METABOLIC PANEL Routine 07/25/2025 8:29 AM EST Essential hypertension HM COLONOSCOPY Routine 08/03/2024 from Last 3 Months or Most Recently Relevant to Health Maintenance Results * Hepatic Function Panel (07/25/2025 8:29 AM EST) Bilirubin, Total 0.5 0.0 - 1.0 mg/dL [facility] Bilirubin, Direct 0.2 0.0 - 0.5 mg/dL [facility] Aspartate Amino Transferase 26 5 - 37 U/L [facility] Alanine Aminotransferase 17 0 - 40 U/L [facility] Total Protein 6.8 6.5 - 8.0 g/dL [facility] Albumin Level 4.2 3.5 - 5.0 g/dL [facility] Alkaline Phosphatase 85 39 - 117 U/L [facility] Blood Venous blood specimen / Unknown 07/25/2025 8:29 AM EST 07/25/2025 2:01 PM EST us Dinora Cardona MD LAB BLOOD ORDERABLES Final Resul t [facility] [address] [place] [phone] * (ABNORMAL) Lipid Panel, Standard (07/25/2025 8:29 AM EST) Triglycerides 114 <150 mg/dL [facility] Comment:Desirable Triglyceri de: less than 150 mg/dLBorderline High Triglyceride 150-199 mg/dLHigh Triglyceride: 200-499 mg/dLVery High Triglyceride: greater than or equal to 5OO mg/dL Cholesterol 176 <200 mg/dL [facility] Comment:Desirable Cholestero l: less than 200 mg/dLBorderline High Cholesterol: 200-239 mg/dLHigh Cholesterol: greater than 239 mg/dL LDL Cholesterol Calculated 109(H) <100 mg/dL [facility] Comment:Desirable LDL: less than 100 mg/dLNear Optimal/Above Optimal LDL: 110- 129 mg/dLBorderline High LDL: 130-159 mg/dLHigh LDL: 160-189 mg/dLVery High LDL: greater than or equal to 190 mg/dL HDL Cholesterol 45 >40 mg/dL [facility] Comment:Desirable HDL: great er than 40 mg/dL Note: This HDL assay may give artificially low results in patients with liver disease. Blood Venous blood specimen / Unknown 07/25/2025 8:29 AM EST 07/25/2025 2:01 PM EST Dinora Cardona MD LAB BLOOD ORDERABLES Final Resul t Performing Organization Address [facility] Co de Phone Number [facility] [address] [place] [phone] * (ABNORMAL) Basic Metabolic Panel (07/25/2025 8:29 AM EST) Sodium 138 135 - 145 mmol/L [facility] Potassium 4.1 3.3 - 5.1 mmol/L [facility] Chloride 103 96 - 108 mmol/L [facility] Carbon Dioxide 29 22 - 29 mmol/L [facility] Anion Gap 10(L) 12 - 20 [facility] Urea Nitrogen (BUN) 14 9 - 16 mg/dL [facility] Creatinine, Serum 0.81 0.5 - 1.4 mg/dL [facility] Estimated Glomerular Filt Rate >60 [facility] Comment:Chronic Kidney Disea se: Estimated GFR < 60 mL/min/1.51t0Ylsryw Kidney Disease: Estimated GFR < 15 mL/min/1.73m2 Glucose 78 60 - 115 mg/dL [facility] Calcium 9.3 8.4 - 10.2 mg/dL [facility] Blood Venous blood specimen / Unknown 07/25/2025 8:29 AM EST 07/25/2025 2:01 PM EST Dinora Cardona MD LAB BLOOD ORDERABLES Final Resul t Performing Organization Address [facility] Co de Phone Number [facility] [address] [place] [phone] * Colonoscopy (08/03/2024) Colonoscopy Normal Normal Narrative Mylene Abad - 08/03/2024 Colonoscopy order added Nilson Dennison MD HEALTH MAINTENANCE Final Result from Last 3 Months or Most Recently Relevant to Health Maintenance Insurance [employer] Care Teams Excelsior Cutter Relationship Specialty Start Date End Date Kvng Forman MD [address] [place] [phone] PCP - General Internal Medicine 07/07/25
--- OUTSIDE RECORDS SUMMARY | 2025-08-24 21:48 | XMS_ITS | Clinical Summary ---
Author Organization [address] [facility] Building Address [address] [place] [address] Phone Care Team Providers Care Dry Janitor Name Role Phone Dinora Cardona MD Primary Care Provider [phone] Allergies No known active allergies Medications metoprolol [...] 2:45 PM EDT Consult Orthopedic Surgery - [place] [address] [place] [address] [address] [place] [address] Ross Delacruz, DPAlexus Pain in [...] on file Sexual Orientation Not on file Last Filed [...] PM EDT Office Visit Orthopedic Surgery [place] [id number] [phone] Ross Delacruz, DPAlexus [address] [address] Health Maintenance Due Date Last Done Comments [...] patient's age to complete this topic Insurance [place] [id number] Care Teams Dry Janitor Relationship Specialty Start Date End Date Dinora Cardona MD [address] [place] [address] PCP - General 04/25/14
--- OUTSIDE RECORDS SUMMARY | 2025-08-24 21:49 | XMS_ITS | Encounter Summary ---
Author Organization [employer] Address [address] [place] [address] Care Team Providers Care Technical Project Coordinator Name Role Phone Dinora Cardona MD Primary Care Provider [phone] Kvng Forman MD Primary Care Prov ider Encounter Details Date Type Department Care Team (Late st Contact Info) Description 01/15/[address] [facility] [address] [place] [address] Rosario Parks LPN Social History Tobacco Use [...] Description 08/29/2025 3:30 PM EST Office Visit [facility] [address] [place] [address] Kvng Forman MD [address] [place] [address] documented as of this encounter Procedures Procedure Name Priority Date/Time Associated Diagnosis Comments BASIC METABOLIC PANEL, FASTING Routine 05/25/2023 10:22 AM EDT documented in this encounter Results * (ABNORMAL) Basic Metabolic Panel, Fasting (05/25/2023 10:22 AM EDT) Sodium 139 135 - 145 mmol/L [facility] Potassium 3.6 3.3 - 5.1 mmol/L [facility] Chloride 105 96 - 108 mmol/L [facility] Carbon Dioxide 27 22 - 29 mmol/L [facility] Anion Gap 11(L) 12 - 20 [facility] Urea Nitrogen (BUN) 16 9 - 16 mg/dL [facility] Creatinine, Serum 0.80 0.5 - 1.4 mg/dL [facility] Estimated Glomerular Filt Rate >60 [facility] Comment:NOTE: For -Am erican individuals, multiply the result by 1.210.Chronic Kidney Disease: Estimated GFR < 60 mL/min/1.22k0Kiopua Kidney Disease: Estimated GFR < 15 mL/min/1.73m2 Glucose Fasting 89 60 - 99 mg/dL [facility] Calcium 9.8 8.4 - 10.2 mg/dL [facility] 05/25/2023 10:2 2 AM EDT 05/25/2023 2:18 PM EDT us Dinora Cardona MD LAB BLOOD ORDERABLES Final Resul t [facility] [address] [place] [phone] [phone] documented in this encounter Visit Diagnoses Not on filedocumented in this encounter Care Teams Technical Project Coordinator Relationship Specialty Start Date End Date Dinora Cardona MD [address] [place] [address] PCP - General Family Medicine 08/26/12 07/06/25 Kvng Forman MD [address] [place] [address] PCP - General Internal Medicine 07/07/25 documented as of this encounter
--- OUTSIDE RECORDS SUMMARY | 2025-08-24 21:49 | XMS_ITS | Encounter Summary ---
Author Organization [employer] Address [address] [facility] 7t [place] [address] Care Team Providers Care Transport Tank Technician Name Role Phone Dinora Cardona MD Primary Care Provider [phone] Kvng Forman MD Primary Care Prov ider Encounter Details Date Type Department Care Team ([facility] st Contact Info) Description 12/29/2023 Orders Only [facility] MED & PEDS [address] [place], [place] [phone] Dinora Cardona MD [address] [place] [address] Social History Tobacco Use Types Packs/Day Years [...] Description 08/29/2025 3:30 PM EST Office Visit [facility] MED & PEDS [address] [place] [address] Kvng Forman MD [address] [place] [address] documented as of this encounter Visit Diagnoses Not on filedocumented in this encounter Additional Health Concerns Assessment Noted Time PHQ-9 Depression Total Score: 0 05/25/20 9:50 AM EDT documented as of this encounter Care Teams Transport Tank Technician Relationship Specialty Start Date End Date Dinora Cardona MD [address] [place] [address] PCP - General Family Medicine 08/26/12 07/06/25 Kvng Forman MD [address] [place] [address] PCP - General Internal Medicine 07/07/25 documented as of this encounter
--- OUTSIDE RECORDS SUMMARY | 2025-08-24 21:49 | XMS_ITS | Encounter Summary ---
Author Organization [employer] Address [address] [facility] 7t [place] [address] Care Team Providers Care Salesperson Furs Name Role Phone Kvng Forman MD Primary Care Prov ider Encounter Details Date Type Department Care Team (Latest Contact Info) Description 08/22/2025 Travel Social History Tobacco Use Types Packs/Day [...] Upcoming Encounters Date Type Department Care Team ([facility] st Contact Info) Description 08/29/2025 3:30 PM EST Office Visit [facility] MED & PEDS [address] [place] [address] Kvng Forman MD [address] [place] [address] documented as of this encounter Visit Diagnoses Not on filedocumented in this encounter Additional Health Concerns Assessment Noted Time PHQ-9 Depression Total Score: 0 03/08/20 9:10 AM EDT documented as of this encounter Care Teams Salesperson Furs Relationship Specialty Start Date End Date Kvng Forman MD [address] [place] [address] PCP - General Internal Medicine 07/07/25 documented as of this encounter
--- OUTSIDE RECORDS SUMMARY | 2025-08-24 21:49 | XMS_ITS | Encounter Summary ---
Author Organization [employer] Address [address] [facility] [address] [place] [address] Care Team Providers Care Forensic Investigator Name Role Phone Dinora Cardona MD Primary Care Provider Kvng Forman MD Primary Care Prov ider Encounter Details Date Type Department Care Team (Late st Contact Info) Description 01/06/2024 Orders Only [facility] [address] [place] [address] Provider, MD Nilson Social History Tobacco Use [...] Description 08/29/2025 3:30 PM EST Office Visit [facility] PED[facility] [address] [place] [address] Kvng Forman MD [address] [place] [address] documented as of this encounter Procedures Procedure Name Priority Date/Time Associated Diagnosis Comments HM COLONOSCOPY Routine 03/09/2012 11:44 AM EDT HM COLONOSCOPY Routine 12/20/2008 11:46 AM EDT documented in this encounter Results * Hm Colonoscopy (03/09/2012 11:44 AM EDT) Historical Provider HEALTH MAINTENANCE Final Result * Hm Colonoscopy (12/20/2008 11:46 AM EDT) Historical Provider HEALTH MAINTENANCE Final Result documented in this encounter Visit Diagnoses Not on filedocumented in this encounter Additional Health Concerns Assessment Noted Time PHQ-9 Depression Total Score: 0 05/25/20 23 9:50 AM EDT documented as of this encounter Care Teams Forensic Investigator Relationship Specialty Start Date End Date Dinora Cardona MD [address] [place] [address] PCP - General Family Medicine 08/26/12 07/06/25 Kvng Forman MD [address] [place] [address] PCP - General Internal Medicine 07/07/25 documented as of this encounter
--- OUTSIDE RECORDS SUMMARY | 2025-08-24 21:49 | XMS_ITS | Encounter Summary ---
Author Organization [employer] Address [address] [place] [address] Care Team Providers Care Mold Technician Name Role Phone Dinora Cardona MD Primary Care Provider [phone] Kvng Forman MD Primary Care Prov ider Encounter Details Date Type Department Care Team (Late st Contact Info) Description 05/26/2023 Orders Only [facility] P[facility] [address] [place] [address] Dinora Cardona MD [address] [place] [address] Social History Tobacco Use Types Packs/Day Years [...] Description 08/29/2025 3:30 PM EST Office Visit [facility] P[facility] [address] [place], [place] [phone] Kvng Forman MD [address] [place], [place] [phone] documented as of this encounter Visit Diagnoses Not on filedocumented in this encounter Additional Health Concerns Assessment Noted Time PHQ-9 Depression Total Score: 0 05/25/20 23 9:50 AM EDT documented as of this encounter Care Teams Mold Technician Relationship Specialty Start Date End Date Dinora Cardona MD [address] [place] [phone] PCP - General Family Medicine 08/26/12 07/06/25 Kvng Forman MD [address] [place] [address] PCP - General Internal Medicine 07/07/25 documented as of this encounter
--- OUTSIDE RECORDS SUMMARY | 2025-08-24 21:49 | XMS_ITS | Encounter Summary ---
Author Organization [employer] Address [address] [facility] 7 [place] [address] Care Team Providers Care Press Operator Carbon Blocks Name Role Phone Dinora Cardona MD Primary Care Provider [phone] Kvng Forman MD Primary Care Prov ider Reason for Visit * Reason Onset Date Comments Med Refill 03/15/2025 Encounter Details Date Type Department Care Team (Late st Contact Info) Description 03/15/2025 Refill [facility] MED & PEDS [address] [place], [place] [phone] Dinora Cardona MD [address] [place] [address] Social History Tobacco Use Types Packs/Day Years [...] Description 08/29/2025 3:30 PM EST Office Visit [facility] MED & PEDS [address] [place] [address] Kvng Forman MD [address] [place] [address] documented as of this encounter Visit Diagnoses Not on filedocumented in this encounter Additional Health Concerns Assessment Noted Time PHQ-9 Depression Total Score: 0 03/08/20 9:10 AM EDT documented as of this encounter Care Teams Press Operator Carbon Blocks Relationship Specialty Start Date End Date Dinora Cardona MD [address] [place] [address] PCP - General Family Medicine 08/26/12 07/06/25 Kvng Forman MD [address] [place] [address] PCP - General Internal Medicine 07/07/25 documented as of this encounter
--- OUTSIDE RECORDS SUMMARY | 2025-08-24 21:49 | XMS_ITS | Patient Health Record ---
Author Organization [facility] Address [address] [place] [address] Care Team Providers Care Case Finishing Machine Adjuster Name Role Phone Dinora Cardona Primary Care Provider Rupa Redd Unavailable [phone] Allergies No Known Allergies Reason For Referral [...] a day Active Metoprolol-HCTZ ER [facility] [place] 3 1000 MG 1 capsule Orally Once [...] No Encounters Encounter Location Date Provider Diagnosis [facility] [address] [facility] [address] [place] [address] 12/15/2024 Rupa Okeefe Plan Of Treatment Pending Test Test Name Order Date X ray : Foot, left 3V 09/29/2023 Insurance Providers Payer Name Payer Address Payer Phone Subscriber Number Group Number Insured Name Patient Relationship to Insured Coverage Start Date Coverage End Date [facility] [employer] Claims [address] [place] [address] [id number] Andrae Dunbar Self - patient is the insured Medical (General) History Medical History History ICD Code Arthritis CAD (Cholesterol) High blood pressure Measles Mumps Chicken pox Surgical History Surgery Date(Month/Year) Hospitalization History Reason Date(Month/Year) [facility]- stroke symptoms 09/2023
== END 2025-08-24 15:36 | disposition home or self-care (01) ==
LOC: HO.HSMS 14:18
PROVIDERS: PCP Student in an Organized Health Care Education/Training Program; Visit Provider Physician Assistant Medical
DX: G47.19 Other hypersomnia (principal)
CPT/HCPCS: 99214